=== PATIENT | male | born 1935 | race Two or more races ===

== ENCOUNTER 2024-08-17 11:57 | Inpatient (IN) | payer BC, OTHER ==
[~2024-08-17] VITALS: Ht 160 cm; Wt 83.1 kg
--- NOTE | 2024-08-17 12:27 | ECG ---
[facility] Test Date: 2024-08-17 Test Time: 12:26:14 Pat Name: LAURA DAWSON Department: ED Room: 0250T Gender: M Grid Caster: GP : 1935 Requested By: STORMY KOTHARI Order Number: [id number] Reading MD: Chino Coleman Measurements Intervals [place] Rate: 68 P: 23 MI: 185 QRS: 13 QRSD: 93 T: 13 QT: 368 QTc: 392 Interpretive Statements Sinus rhythm Atrial premature complex Electronically Signed On 08-22-2024 21:54:22 PDT by Chino Coleman Please click the below link to view image of tracing.
--- NOTE | 2024-08-17 13:13 | DVH ---
EXAM: XY CHEST PORTABLE Indication: weakness Technique: Single frontal view of the chest was obtained Comparison: None FINDINGS: Lines and Tubes: None Lungs: No focal consolidation. Pleura: No effusion. No pneumothorax. Cardiomediastinal contours: Unremarkable Bones: No acute osseous abnormality. IMPRESSION: No acute cardiopulmonary disease.
--- NOTE | 2024-08-17 13:29 | ED.PDOC ---
History of Present Illness HPI Comments 88-year-old male who comes in with chief complaint of altered level of consciousness with weakness and dizziness. According to the family, the patient has been having increased weakness over the past few weeks. The patient has also been having some mild dysuria. The patient's daughter lives in [place] and has been calling the phone of the patient but he has not been answering so she flew down to come and see him. She states that he has been having some constipation and seems to be getting much weaker. He states that he has been having a constipation over the past few weeks. He is complaining of some dry mouth but is able to answer questions so and upon arrival. He is having some vomiting. Upon arrival, the patient's blood pressure was 130/82 and he had an Accu-Chek of 91. A 12 lead EKG was within normal range. The patient is now also complaining of some dizziness. 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 The patient is also having some mild altered mental status as well as dysuria Past Medical History PAST MEDICAL HISTORY: Gout, High Lipids, HTN Surgical History: Denies all surgeries Family History Family History: Family hx of heart jody Social History Smoker: Non-Smoker Alcohol: Denies ETOH Use Drugs: Denies Drug Use Lives In: Home Constitutional: reports: weakness; denies: chills, diaphoresis, fatigue, fever, malaise, sweats, others EENTM: denies: blurred vision, double vision, ear bleeding, ear discharge, ear drainage, ear pain, ear ringing, eye pain, eye redness, hearing loss, mouth pain, mouth swelling, nasal discharge, nose bleeding, nose congestion, nose pain, photophobia, tearing, throat pain, throat swelling, voice changes, others Respiratory: denies: cough, hemoptysis, orthopnea, SOB at rest, shortness of breath, SOB with excertion, stridor, wheezing, others Cardiovascular: denies: chest pain, dizzy spells, diaphoresis, Dyspnea on exertion, edema, irregular heart beat, left arm pain, lightheadedness, palpitations, PND, syncope, others Gastrointestinal: reports: constipated, nausea, vomiting; denies: abdomen distended, abdominal pain, blood streaked bowels, diarrhea, dysphagia, difficulty swallowing, hematemesis, melena, poor appetite, poor fluid intake, rectal bleeding, rectal pain, others Genitourinary: reports: dysuria; denies: burning, flank pain, frequency, hematuria, incontinence, penile discharge, penile sore, pain, testicle pain, testicle swelling, urgency, others Neurological: reports: others (Altered mental status); denies: dizziness, fainting, headache, left sided numbness, left sided weakness, numbness, paresthesia, pre-existing deficit, right sided numbness, right sided weakness, seizure, speech problems, tingling, tremors, weakness Musculoskeletal: denies: back pain, gout, joint pain, joint swelling, muscle pain, muscle stiffness, neck pain, others Integumetry: denies: bruises, change in color, change in hair/nails, dryness, laceration, lesions, lumps, rash, wounds, others Allergic/Immunocompromised: denies: Difficulty Healing, Frequent Infections, Hives, Itching, others Hematologic/Lymphatic: denies: anemia, blood clots, easy bleeding, easy bruising, swollen glands, others Endocrine: denies: excessive hunger, excessive sweating, excessive thirst, excessive urination, flushing, intolerance to cold, intolerance to heat, unexplained weight gain, unexplained weight loss, others Psychiatric: denies: anxiety, bipolar disorder, depression, hopeless, panic disorder, schizophrenia, sleepless, suicidal, others Physical Exam General Appearance: Severe Distress HEENT: Normal ENT Inspection, Pharynx Normal, TMs Normal Neck: Full Range of Motion, Non-Tender, Normal, Normal Inspection Respiratory: Chest Non-Tender, Lungs Clear, No Accessory Muscle Use, No Respiratory Distress, Normal Breath Sounds Cardiovascular: No Edema, No JVD, No Murmur, No Gallop, Normal Peripheral Pulses, Regular Rate/Rhythm Breast Exam: Deferred Gastrointestinal: No Organomegaly, Non Tender, No Pulsatile Mass, Normal Bowel Sounds, Soft Genitalia: Deferred Pelvic: Deferred Rectal: Deferred Extremities: No calf tenderness, Normal capillary refill, Normal inspection, Normal range of motion, Non-tender, No pedal edema Musculoskeletal : Apperance: Normal 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 Was a procedure done?: No EKG EKG : Pulse Rate (adult): 65 Perry: Normal Cardiac Rhythm: NSR Block: None ST: Nonsp Differential Dx Considerations may include: Sepsis, UTI, generalized weakness, electrolyte imbalance X-Ray, Labs, Meds, VS Vital Signs Date Time Temp Pulse Resp B/P (MAP) Pulse Ox O2 Delivery O2 Flow Rate FiO2 08/17/24 16:00 72 08/17/24 15:54 75 15 95 Room Air* 0 21 08/17/24 15:03 80 08/17/24 14:00 98.7 62 18 130/27 (61) 98 98.7 08/17/24 13:29 65 08/17/24 12:26 68 08/17/24 12:15 98.0 63 20 134/48 (76) 95 98.0 Lab Test 08/17/24 16:09 08/17/24 14:42 08/17/24 14:15 08/17/24 14:09 Range/Units Sodium Level Pending Potassium Level Pending Chloride Level Pending Carbon Dioxide Level Pending Anion Gap Pending Blood Urea Nitrogen Pending Creatinine Pending Glomerular Filtration Rate Calc Pending BUN/Creatinine Ratio Pending Serum Glucose Pending Calcium Level Pending Troponin I High Sensitivity 41 40 </=54 ng/L Blood Gas Specimen Type Arterial Blood Gas Sample Site Right radial Blood Gas Patient Temperature 37.0 Arterial Blood Date Drawn [id number] Arterial Blood pH 7.073 *L 7.350-7.450 Arterial Blood Partial Pressure CO2 21.2 L 35.0-48.0 mmHg Arterial Blood Partial Pressure O2 66.3 L 83.0-108.0 mmHg Arterial Blood HCO3 6.0 L 21.0-28.0 mmol/L Arterial Blood Oxygen Saturation 90.1 L 94.0-98.0 % Arterial Blood Base Excess -22.3 L -2.0-3.0 mmol/L Arterial Blood Oxyhemoglobin 89.2 L 94.0-98.0 % Arterial Blood Carboxyhemoglobin 0.3 L 0.5-1.5 % Arterial Blood Methemoglobin 0.7 0.0-1.5 % Ghulam Test Yes Blood Gas Total Hemoglobin 9.10 L 13.5-17.5 g/dL Blood Gas Modality Room air FiO2 % 21.0 Blood Gas Critical Value Read Back Yes Blood Gas Notified Whom Dr mtz Blood Gas Notified Time [id number] Blood Gas Notified By POC Glucose 79 70-106 mg/dl Test 08/17/24 13:50 08/17/24 13:15 Range/Units SARS-CoV-2 Antigen (Rapid) Negative NEGATIVE White Blood Count 5.6 4.4-10.8 10^3/uL Red Blood Count 2.77 L 4.5-5.90 10^6/uL Hemoglobin 8.7 L 13.5-17.5 g/dL Hematocrit 26.0 L 41.0-53.0 % Mean Corpuscular Volume 93.8 80.0-100.0 fL Mean Corpuscular Hemoglobin 31.2 28.0-32.0 pg Mean Corpuscular Hemoglobin Concent 33.3 32.0-36.0 g/dL Red Cell Distribution Width 15.2 H 11.8-14.3 % Platelet Count 165 140-450 10^3/uL Mean Platelet Volume 10.0 6.9-10.8 fL Neutrophils (%) (Auto) 82.5 H 37.0-80.0 % Lymphocytes (%) (Auto) 5.8 L 10.0-50.0 % Monocytes (%) (Auto) 8.2 0.0-12.0 % Eosinophils (%) (Auto) 3.0 0.0-7.0 % Basophils (%) (Auto) 0.5 0.0-2.0 % Neutrophils # (Auto) 4.6 1.6-8.6 10 ^3/uL Lymphocytes # (Auto) 0.3 L 0.4-5.4 10 ^3/uL Monocytes # (Auto) 0.5 0-1.3 10 ^3/uL Eosinophils # (Auto) 0.2 0-0.8 10 ^3/uL Basophils # (Auto) 0 0-0.2 10 ^3/uL Nucleated Red Blood Cells 0.0 % Sodium Level 140 136-145 mmol/L Potassium Level 6.0 *H 3.5-5.1 mmol/L Chloride Level 115 H 98-107 mmol/L Carbon Dioxide Level < 10 *L 20-31 mmol/L Anion Gap 15.79273 H 5-15 Blood Urea Nitrogen 123 *H 9-23 mg/dL Creatinine 8.80 H 0.700-1.30 mg/dL Glomerular Filtration Rate Calc 5 >90 mL/min BUN/Creatinine Ratio 14.0 10.0-20.0 Serum Glucose 85 74-106 mg/dL Lactic Acid Level 0.5 0.4-2.0 mmol/L Calcium Level 9.4 8.7-10.4 mg/dL Troponin I High Sensitivity 44 </=54 ng/L Current Medications Medications (Trade) Dose Ordered Sig/Mukesh Route Start Time Stop Time Status Last Admin Sodium Chloride 500 ml @ 500 mls/hr Q1H ONCE IVB 08/17/24 12:15 08/17/24 13:14 DC 08/17/24 15:03 Sodium Chloride 1,000 ml @ 1,000 mls/hr Q1H ONCE IV 08/17/24 14:15 08/17/24 15:18 DC 08/17/24 14:15 Calcium Gluconate/ Sodium Chloride 50 ml @ 100 mls/hr ONCE ONCE IV 08/17/24 14:45 08/17/24 15:18 DC 08/17/24 14:57 Sodium Bicarbonate 50 ml ONCE ONCE IV 08/17/24 14:45 08/17/24 14:46 DC 08/17/24 14:45 Dextrose 25 ml ONCE ONCE IV 08/17/24 14:45 08/17/24 14:46 DC 08/17/24 14:45 Insulin Human Regular (InsuLIN R) 5 units ONCE ONCE IV 08/17/24 14:45 08/17/24 14:46 DC 08/17/24 15:17 IV Hep-Lock was established The patient was given normal saline as a 500 cc bolus initially. The patient's CBC came back with a hemoglobin of 8.7 and hematocrit of 26. The chemistry panel shows a potassium of 6.0 We did go ahead and give the patient calcium chloride as well as sodium bicarbonate, dextrose and insulin. We can not see if the patient had a history of renal failure in the past The patient's BUN is elevated at 123 and the creatinine of 8.8 The CO2 level is less than 10. The patient's anion gap is 15 The troponin level is negative At this time we did go ahead and order an ABG to rule out possible DKA The pH came back at 7.07 At this time, the patient will be admitted to the hospitalist The patient's diagnosis metabolic acidosis We will be starting a bicarbonate drip. The rest of the chemistry panel is pending as we did a repeat chemistry panel The patient's family is at bedside and understands and agrees with the management Blood cultures x2 were also drawn. The lactic acid level was done and is within normal range A nephrology consult has also been obtained. A Sagastume catheter has been ordered and is being placed at this time. Images Reviewed?: Images reviewed and evaluated by me Time of 1ST Reevaluation: 13:29 Reevaluation 1ST: Unchanged Patient Education/Counseling: Diagnosis, Treatment, Prognosis Family Education/Counseling: Diagnosis, Treatment, Prognosis Sepsis Sepsis Reasesment Focused Exam Orders: Laboratory Tests 08/17/24 13:15: Lactic Acid Level 0.5 Departure 1 Departure Time of Disposition: 16:57 Impression: Primary Impression: Metabolic acidosis Additional Impressions: ESRD needing dialysis Hyperkalemia Dehydration Disposition: ADMITTED INPATIENT Admit to: [facility] Condition: Fair Critical Care Note Critical Care Time?: Yes (1 hr-critical care time only) Stability Stability form required: Yes Unstable for transfer: ICU, CCU, PCU, [facility] (Intensive VS monitoring), ED Physician Assesment (Clinical assesment) Heart Score Heart Score: Heart Score Response (Comments) Value History N/A 0 EKG N/A 0 Age N/A 0 Risk Factors N/A 0 Troponin N/A 0 Total 0 STORMY MTZ MD August 17, 2024 13:29
[2024-08-17 13:37] LABS: Basophils # (auto) 0 10 ^3/uL (0-0.2); Basophils % (auto) 0.5 % (0.0-2.0); Eosinophils # (auto) 0.2 10 ^3/uL (0-0.8); Hemoglobin 8.7 g/dL (13.5-17.5); Lymphocytes # (auto) 0.3 10 ^3/uL (0.4-5.4); Lymphocytes % (auto) 5.8 % (10.0-50.0); Mean Corpuscular Hemoglobin 31.2 pg (28.0-32.0); Mean Corpuscular Hgb Conc. 33.3 g/dL (32.0-36.0); Mean Corpuscular Volume 93.8 fL (80.0-100.0); Monocytes # (auto) 0.5 10 ^3/uL (0-1.3); Monocytes % (auto) 8.2 % (0.0-12.0); Neutrophils # (auto) 4.6 10 ^3/uL (1.6-8.6); Neutrophils % (auto) 82.5 % (37.0-80.0); Platelet Count (auto) 165 10^3/uL (140-450); Red Blood Cells 2.77 10^6/uL (4.5-5.90); Red Cell Distribution Width 15.2 % (11.8-14.3); White Blood Cell 5.6 10^3/uL (4.4-10.8)
[2024-08-17 13:42] LABS: Sodium 140 mmol/L (136-145)
[2024-08-17 13:43] LABS: Anion Gap 15.00001 (5-15)
[2024-08-17 13:44] LABS: Calcium 9.4 mg/dL (8.7-10.4)
[2024-08-17 13:48] LABS: Glucose 85 mg/dL (74-106)
[2024-08-17 13:49] LABS: Chloride 115 mmol/L (98-107)
[2024-08-17 13:55] LABS: Blood Urea Nitrogen 123 mg/dL (9-23); Carbon Dioxide < 10 mmol/L (20-31)
[2024-08-17] MEDS: SODIUM CHLORIDE 0.9% 1,000 ML IV ONE (14:15)
[2024-08-17 14:40] LABS: COVID19 ANTIGEN SOFIA FIA NEGATIVE (NEGATIVE)
[2024-08-17] MEDS: DEXTROSE (50%) 50ML SYRG IV ONE (14:45)
[2024-08-17] MEDS: SODIUM BICARB 8.4% 50Meq/50ml SYR Vial IV ONE (14:45)
[2024-08-17] MEDS: CALCIUM GLUC 1,000mg/50ml-NS 50 ML IV ONE (14:57)
[2024-08-17] MEDS: INSULIN LANTUS (GLARGINE) 1 /0.01ml (100units/ml) SC ONE (15:00)
[2024-08-17] MEDS ORDERED: DEXTROSE (50%) 50ML SYRG IV PRN (15:00)
[2024-08-17] MEDS ORDERED: INSULIN DRIP 100 UNIT/100ML 100 ML IV SCH (15:00)
[2024-08-17] MEDS ORDERED: ACCU-CHEK COMFORT CURVE STRIP VI SCH (15:00)
[2024-08-17] MEDS: SODIUM CHLORIDE 0.9% 500 ML IVB ONE (15:03)
[2024-08-17 15:14] LABS: Base Excess -22.3 mmol/L (-2.0-3.0)
[2024-08-17] MEDS: InsuLIN REG 1unit/0.01ml Soln (100units/ml) IV ONE (15:17)
[2024-08-17 15:54] VITALS: PULSE 75; RESP 15; O2SAT 95
--- NOTE | 2024-08-17 16:27 | DVHHP2 ---
History of Present Illness Reason for Visit: Altered mental status. History of Present Illness 58-year-old male with a known history of hypertension, dyslipidemia, history of gout, currently on lovastatin lisinopril and Lasix at home, history of prostate cancer status post radiation currently getting active radiation presented to the hospital with altered mental status. As per daughter at bedside patient lives alone and she lives in [place]. She called him and then he was not making any sense eventually she flew down to see him. Patient was more altered as well as constipated. Eventually in the ER patient was found to have med severe metabolic acidosis secondary to dehydration as well as a acute kidney injury with a hyperkalemia. Number daughter patient's has not been eating or drinking for last week and a half. Patient is not making much urine as per his statement. Sagastume catheter has been ordered. Bicarb drip will be ordered. Cardiovascular: HTN Review of Systems Review of Systems Twelve review of system are negative besides mentioned above. Allergies: Coded Allergies: NO KNOWN ALLERGIES (Unverified , 08/17/24) Medications Current Medications Medications Dose Ordered Sig/Mukehs Route Start Time Stop Time Status Last Admin Dose Admin Insulin Human (Reg)/Sodium Chloride 100 ml @ 0.5 mls/hr Q24H IV 08/17/24 15:00 Diagnostic Test (Pha) 1 strip Q90MIN 08/17/24 15:00 Dextrose 50 ml PRN PRN IV 08/17/24 15:00 Insulin Glargine 15 units DAILY SC 08/18/24 10:00 Exam Vital Signs Vital Signs Date Time Temp Pulse Resp B/P (MAP) Pulse Ox O2 Delivery O2 Flow Rate FiO2 08/17/24 15:54 75 15 95 Room Air* 0 21 08/17/24 14:00 98.7 130/27 (61) 98.7 Exam HEENT pupils are reactive Neck is supple CV is S1-S2 regular rate and rhythm Respiratory diminished breath sounds bases GI positive bowel sound Extremity no edema 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 Labs/Xrays Labs Test 08/17/24 16:09 08/17/24 14:42 08/17/24 14:09 08/17/24 13:50 Range/Units Blood Gas Specimen Type Arterial Blood Gas Sample Site Right radial Blood Gas Patient Temperature 37.0 Arterial Blood Date Drawn [id number] Arterial Blood pH 7.073 *L 7.350-7.450 Arterial Blood Partial Pressure CO2 21.2 L 35.0-48.0 mmHg Arterial Blood Partial Pressure O2 66.3 L 83.0-108.0 mmHg Arterial Blood HCO3 6.0 L 21.0-28.0 mmol/L Arterial Blood Oxygen Saturation 90.1 L 94.0-98.0 % Arterial Blood Base Excess -22.3 L -2.0-3.0 mmol/L Arterial Blood Oxyhemoglobin 89.2 L 94.0-98.0 % Arterial Blood Carboxyhemoglobin 0.3 L 0.5-1.5 % Arterial Blood Methemoglobin 0.7 0.0-1.5 % Ghulam Test Yes Blood Gas Total Hemoglobin 9.10 L 13.5-17.5 g/dL Blood Gas Modality Room air FiO2 % 21.0 Blood Gas Critical Value Read Back Yes Blood Gas Notified Whom Dr mtz Blood Gas Notified Time [id number] Blood Gas Notified By POC Glucose 79 70-106 mg/dl SARS-CoV-2 Antigen (Rapid) Negative NEGATIVE Test 08/17/24 13:15 Range/Units White Blood Count 5.6 4.4-10.8 10^3/uL Red Blood Count 2.77 L 4.5-5.90 10^6/uL Hemoglobin 8.7 L 13.5-17.5 g/dL Hematocrit 26.0 L 41.0-53.0 % Mean Corpuscular Volume 93.8 80.0-100.0 fL Mean Corpuscular Hemoglobin 31.2 28.0-32.0 pg Mean Corpuscular Hemoglobin Concent 33.3 32.0-36.0 g/dL Red Cell Distribution Width 15.2 H 11.8-14.3 % Platelet Count 165 140-450 10^3/uL Mean Platelet Volume 10.0 6.9-10.8 fL Neutrophils (%) (Auto) 82.5 H 37.0-80.0 % Lymphocytes (%) (Auto) 5.8 L 10.0-50.0 % Monocytes (%) (Auto) 8.2 0.0-12.0 % Eosinophils (%) (Auto) 3.0 0.0-7.0 % Basophils (%) (Auto) 0.5 0.0-2.0 % Neutrophils # (Auto) 4.6 1.6-8.6 10 ^3/uL Lymphocytes # (Auto) 0.3 L 0.4-5.4 10 ^3/uL Monocytes # (Auto) 0.5 0-1.3 10 ^3/uL Eosinophils # (Auto) 0.2 0-0.8 10 ^3/uL Basophils # (Auto) 0 0-0.2 10 ^3/uL Nucleated Red Blood Cells 0.0 % Lactic Acid Level 0.5 0.4-2.0 mmol/L Assessment/Plan Assessment/Plan 88-year-old male with a known history of hypertension, gout, dyslipidemia , history of prostate cancer status post radiation, presented to the hospital with unable to eat, nausea and vomiting and constipation found to have 1. Acute metabolic encephalopathy 2. Severe metabolic acidosis secondary to dehydration 3. Acute kidney injury 4. Hyperkalemia 5. Hypertension 6. Dyslipidemia 8. History of prostate cancer status post radiation 9. Gout -hyperkalemia cocktail treatment, repeat BMP in 1 hour. -admit to [facility], bicarb drip, check UA urine culture, renal ultrasound, -place Sagastume catheter for strict intake and output , nephrology consultation, Plan discussed with: Patient, Daughter My Orders Orders - MADAN ANDERSON MD Procedure Category Date Status Time Basic Metabolic Panel LAB 08/17/24 In Process 15:42 Admit ADMIT 08/17/24 Transmitted 16:18 Code Status CODE 08/17/24 Transmitted 16:18 2 Gm Sodium Diet DIET 08/17/24 Transmitted Dinner Hydrocodone-Acet PHA 08/17/24 Transmitted 5/325mg Tab ([place] 16:30 Ondansetron Hcl PHA 08/17/24 Transmitted (Zofran) 16:30 Complete Blood Count LAB 08/18/24 Verified 04:00 Comprehensive LAB 08/18/24 Verified Metabolic Panel 04:00 Pt Request For Service PT 08/17/24 Transmitted 16:18 Condition: Critical [facility]O 08/17/24 Transmitted 16:18 Acetaminophen Tablet PHA 08/17/24 Transmitted (Tylenol Tablet) 16:30 Morphine Sulfate PHA 08/17/24 Transmitted Injection 16:30 Nitroglycerin PHA 08/17/24 Transmitted Sublingual (Ntrostat 16:30 Morphine Sulfate PHA 08/17/24 Transmitted Injection 16:30 Stat Ekg For Chest [facility]O 08/17/24 Transmitted Pain 16:18 Notify Of Changes [facility] 08/17/24 Transmitted From Base 16:18 Escalator Installer For [facility] 08/17/24 Transmitted 24 Hours 16:18 Emergency Dysrhythmia [facility] 08/17/24 Transmitted Protocol 16:18 Rhythm Strips Once [facility] 08/17/24 Transmitted Every Shift 16:18 Oxygen By Nasal RT 08/17/24 Transmitted Cannula 16:18 D5 W Sodium PH[facility] 08/17/24 Transmitted Bicarbonate Drip 16:30 Albuterol Medneb PHA 08/17/24 Transmitted (Ventolin Medneb) 16:30 Kidney US 08/17/24 Transmitted 16:18 Insert Sagastume Catheter [facility] 08/17/24 Transmitted 16:18 *[facility] CONS 08/17/24 Transmitted -[place] 16:18 Date of Service: August 17, 2024 Billing Provider: MADNA ANDERSON MD Common Visit Codes: NOT BILLABLE MADAN ANDERSON MD August 17, 2024 16:26
[2024-08-17] MEDS ORDERED: NITROGLYCERIN 0.4 MG SL TAB SL PRN (16:30)
[2024-08-17] MEDS ORDERED: MORPHINE SULFATE INJ 2 MG/ml SYRG IV PRN ×2 (16:30)
[2024-08-17 16:46] LABS: Potassium 5.1 mmol/L (3.5-5.1); Sodium 143 mmol/L (136-145)
[2024-08-17 16:47] LABS: Anion Gap 16.00001 (5-15); Calcium 8.9 mg/dL (8.7-10.4)
[2024-08-17 16:52] LABS: BUN/Creatinine Ratio 15.3 (10.0-20.0)
[2024-08-17 16:56] LABS: Chloride 117 mmol/L (98-107)
[2024-08-17 16:57] LABS: Glucose 125 mg/dL (74-106)
[2024-08-17 16:58] LABS: Blood Urea Nitrogen 128 mg/dL (9-23); Carbon Dioxide < 10 mmol/L (20-31)
[2024-08-17] MEDS: ALBUTEROL SULF 2.5 MG/0.5ML(0.5%) NEB SOLN NEB ONE (16:59)
--- NOTE | 2024-08-17 17:08 | DVH ---
EXAM: US KIDNEY HISTORY: Acute kidney injury COMPARISON: None TECHNIQUE: Ultrasound evaluation of the kidneys was performed. FINDINGS: The right kidney measures 0.2 cm. The left kidney measures 9.7 cm. No hydronephrosis, solid renal masses, cortical thinning, or abnormal cortical echogenicity bilaterally. Prevoid bladder volume 210 mL. Bladder wall thickness 1.6 mm. Patient unable to void IMPRESSION: 1. Right kidney measures 9.2 cm. Left kidney measures 9.7 cm. 2. Bladder contains 210 mL of urine and patient has no urge to void at this time.
[2024-08-17] MEDS: SODIUM BICARB 50mEq/50ml Vial 75 ML in D5W 5% 1,000 ML IV SCH (17:13)
[2024-08-17 19:16] LABS: Potassium 4.4 mmol/L (3.5-5.1); Sodium 143 mmol/L (136-145)
[2024-08-17 19:17] LABS: Anion Gap 17.00001 (5-15)
[2024-08-17 19:30] VITALS: PULSE 92; RESP 16; O2SAT 96
[2024-08-17 19:37] LABS: BUN/Creatinine Ratio 14.5 (10.0-20.0); Calcium 8.6 mg/dL (8.7-10.4); Chloride 116 mmol/L (98-107); Glucose 135 mg/dL (74-106)
[2024-08-17 19:39] LABS: Blood Urea Nitrogen 127 mg/dL (9-23)
[2024-08-17 19:40] LABS: Carbon Dioxide < 10 mmol/L (20-31)
[2024-08-17 21:42] LABS: Urine Bacteria FEW /hpf (None Seen); Urine Blood 3+ /uL (Negative); Urine Budding Yeast OCCASIONAL /hpf (None Seen); Urine Clarity Clear (Clear); Urine Color Light-Yellow (Yellow); Urine Protein, UAD 2+ (Negative); Urine Specific Gravity 1.012 (1.001-1.035); Urine Squamous Epithelial Cell None Seen /hpf (<5); Urine Urobilinogen Normal (Negative); Urine WBC 16 /HPF (0-3); Urine pH 5.5 (5.0-9.0)
[2024-08-17 21:45] LABS: Creatinine, Urine 131.55 mg/dL (30.0-125.0)
[2024-08-18] MEDS: hydrALAZINE HCL 20 MG/ML VL IV PRN (05:30)
[2024-08-18 06:11] LABS: Basophils # (auto) 0 10 ^3/uL (0-0.2); Eosinophils # (auto) 0.1 10 ^3/uL (0-0.8); Hemoglobin 7.3 g/dL (13.5-17.5); Lymphocytes # (auto) 0.2 10 ^3/uL (0.4-5.4); Lymphocytes % (auto) 3.7 % (10.0-50.0); Monocytes # (auto) 0.5 10 ^3/uL (0-1.3); Platelet Count (auto) 127 10^3/uL (140-450); Red Blood Cells 2.33 10^6/uL (4.5-5.90)
[2024-08-18 06:15] LABS: Basophils % (auto) 0.4 % (0.0-2.0); Eosinophils % (auto) 1.8 % (0.0-7.0); Hematocrit 21.2 % (41.0-53.0); Mean Corpuscular Hemoglobin 31.4 pg (28.0-32.0); Mean Corpuscular Hgb Conc. 34.4 g/dL (32.0-36.0); Mean Corpuscular Volume 91.1 fL (80.0-100.0); Monocytes % (auto) 9.4 % (0.0-12.0); Neutrophils # (auto) 4.7 10 ^3/uL (1.6-8.6); Neutrophils % (auto) 84.7 % (37.0-80.0); Red Cell Distribution Width 14.8 % (11.8-14.3); White Blood Cell 5.5 10^3/uL (4.4-10.8)
[2024-08-18] MEDS: SODIUM BICARB 8.4% 50Meq/50ml SYR Vial IV ONE (06:22)
[2024-08-18 06:33] LABS: Alkaline Phosphatase 67 U/L (46-116); Anion Gap 16 (5-15); BUN/Creatinine Ratio 14.5 (10.0-20.0); Potassium 4.1 mmol/L (3.5-5.1); Sodium 143 mmol/L (136-145); Total Protein 5.8 g/dL (5.7-8.2)
[2024-08-18 06:34] LABS: Albumin 3.7 g/dL (3.2-4.8); Carbon Dioxide 12 mmol/L (20-31); Chloride 115 mmol/L (98-107); Glucose 132 mg/dL (74-106)
[2024-08-18 06:35] LABS: Alanine Aminotransferase < 9 U/L (7-40); Aspartate Aminotransferase < 8 U/L (13-40); Calcium 8.4 mg/dL (8.7-10.4); Creatine Kinase IFCC 220 U/L (46-171)
[2024-08-18 06:36] LABS: Bilirubin, Total 0.3 mg/dL (0.2-1.0); Blood Urea Nitrogen 116 mg/dL (9-23)
[2024-08-18 08:00] VITALS: PULSE 95; RESP 16; O2SAT 95
--- NOTE | 2024-08-18 09:37 | DVHINCON2 ---
Date of service: August 18, 2024 Reason for Consultation TONIA History of Present Illness 88 year old male presented with AMS. He has recent diagnosis of prostate cancer on therapy. Was brought to the hospital by family due to change in mental state. In the ER is noted to have abnormal labs including severe metabolic acidosis. Per ER unable to obtain Sagastume catheter placement and Urology was consulted. Nephrology is consulted due to acute kidney injury Past Medical History Diabetes and hypertension Allergies: Coded Allergies: NO KNOWN ALLERGIES (Unverified , 08/17/24) Current Medications Current Medications Medications (Trade) Dose Ordered Sig/Mukesh Route PRN Reason Start Time Stop Time Status Last Admin Insulin Human (Reg)/Sodium Chloride 100 ml @ 0.5 mls/hr Q24H IV 08/17/24 15:00 08/17/24 17:56 DC Diagnostic Test (Pha) (Accu-Chek Comfort Curve T) 1 strip Q90MIN 08/17/24 15:00 08/17/24 17:56 DC Dextrose 50 ml PRN PRN IV BG LESS Than 70 AND CALL MD 08/17/24 15:00 08/17/24 17:56 DC Insulin Glargine (Lantus) 15 units DAILY SC 08/18/24 10:00 08/17/24 17:56 DC Acetaminophen/ Hydrocodone Bitart ([place] 5/325MG Tab) 1 tab Q4HP PRN PO MODERATE PAIN (4-6 PAIN SCALE) 08/17/24 16:30 Ondansetron HCl (Zofran) 4 mg Q4HP PRN IV NAUSEA / VOMITING 08/17/24 16:30 Acetaminophen (Tylenol Tablet) 650 mg Q6HP PRN PO PAIN SCALE 1-3 OR TEMP>100.4 08/17/24 16:30 Morphine Sulfate 2 mg Q4HPRN PRN IV SEVERE PAIN (7-10 PAIN SCALE) 08/17/24 16:30 Nitroglycerin (Ntrostat Sublingual) 0.4 mg Q5MINP PRN SL FOR CHEST PAIN 08/17/24 16:30 Morphine Sulfate 2 mg Q30M PRN IV FOR CHEST PAIN 08/17/24 16:30 Sodium Bicarbonate 75 ml/ Dextrose 1,075 ml @ 100 mls/hr [id number] IV 08/17/24 16:30 08/17/24 17:13 Hydralazine HCl (Apresoline Injection) 10 mg Q6HP PRN IV SBP>160 08/18/24 04:15 08/18/24 05:30 Review of Systems Change in mental state H&P Exam Vital Signs/I&O Vital Sign Date Time Temp Pulse Resp B/P (MAP) Pulse Ox O2 Delivery O2 Flow Rate FiO2 08/18/24 08:05 75 08/18/24 08:00 97.9 16 157/57 (90) 95 97.9 08/18/24 08:00 Nasal Cannula* 2 28 Intake and Output 0 08/17/24 08/18/24 19:00 07:00 Intake Total 100 ml 2750 ml Output Total 325 ml Balance 100 ml 2425 ml Intake IV Total 100 ml 2750 ml Output Urine Total 325 ml Physical Exam Elderly male Not in respiratory distress Mildly confused Abdomen is soft No pitting edema Regular rate and rhythm Labs/Diagnostic Data Labs/Diagnostic Data Laboratory Tests Test 08/18/24 05:41 08/17/24 21:15 08/17/24 18:55 08/17/24 16:28 Range/Units White Blood Count 5.5 4.4-10.8 10^3/uL Red Blood Count 2.33 L 4.5-5.90 10^6/uL Hemoglobin 7.3 #L 13.5-17.5 g/dL Hematocrit 21.2 #L 41.0-53.0 % Mean Corpuscular Volume 91.1 80.0-100.0 fL Mean Corpuscular Hemoglobin 31.4 28.0-32.0 pg Mean Corpuscular Hemoglobin Concent 34.4 32.0-36.0 g/dL Red Cell Distribution Width 14.8 H 11.8-14.3 % Platelet Count 127 L 140-450 10^3/uL Mean Platelet Volume 10.4 6.9-10.8 fL Neutrophils (%) (Auto) 84.7 H 37.0-80.0 % Lymphocytes (%) (Auto) 3.7 L 10.0-50.0 % Monocytes (%) (Auto) 9.4 0.0-12.0 % Eosinophils (%) (Auto) 1.8 0.0-7.0 % Basophils (%) (Auto) 0.4 0.0-2.0 % Neutrophils # (Auto) 4.7 1.6-8.6 10 ^3/uL Lymphocytes # (Auto) 0.2 L 0.4-5.4 10 ^3/uL Monocytes # (Auto) 0.5 0-1.3 10 ^3/uL Eosinophils # (Auto) 0.1 0-0.8 10 ^3/uL Basophils # (Auto) 0 0-0.2 10 ^3/uL Nucleated Red Blood Cells 0.0 % Sodium Level 143 143 136-145 mmol/L Potassium Level 4.1 4.4 3.5-5.1 mmol/L Chloride Level 115 H 116 H 98-107 mmol/L Carbon Dioxide Level 12 L < 10 *L 20-31 mmol/L Anion Gap 16 H 17.89841 H 5-15 Blood Urea Nitrogen 116 #*H 127 *H 9-23 mg/dL Creatinine 7.99 H 8.74 H 0.700-1.30 mg/dL Glomerular Filtration Rate Calc 6 5 >90 mL/min BUN/Creatinine Ratio 14.5 14.5 10.0-20.0 Serum Glucose 132 H 135 H 74-106 mg/dL Calcium Level 8.4 L 8.6 L 8.7-10.4 mg/dL Phosphorus Level 6.0 H 2.4-5.1 mg/dL Total Bilirubin 0.3 0.2-1.0 mg/dL Aspartate Amino Transferase (AST) < 8 L 13-40 U/L Alanine Aminotransferase (ALT) < 9 7-40 U/L Alkaline Phosphatase 67 46-116 U/L Creatine Kinase 220 H 46-171 U/L Total Protein 5.8 5.7-8.2 g/dL Albumin 3.7 3.2-4.8 g/dL Urine Color Light-yellow Yellow Urine Clarity Clear Clear Urine pH 5.5 5.0-9.0 Urine Specific [place] 1.012 1.001-1.035 Urine Protein 2+ H Negative Urine Ketones Negative Negative Urine Blood 3+ H Negative /uL Urine Nitrite Negative Negative Urine Bilirubin Negative Negative Urine Urobilinogen Normal Negative mg/dL Urine Leukocyte Esterase Trace Negative /uL Urine RBC 167 0 - 3 /hpf Urine Microscopic WBC 16 H 0-3 /HPF Urine Squamous Epithelial Cells None seen <5 /hpf Urine Bacteria Few H None Seen /hpf Urine Yeast (Budding) Occasional None Seen /hpf Urine Creatinine 131.55 H 30.0-125.0 mg/dL Urine Sodium 34 L 40-220 mmol/L Urine Glucose Normal Normal mg/dL POC Glucose 98 70-106 mg/dl Test 08/17/24 16:09 08/17/24 14:42 08/17/24 14:15 08/17/24 14:09 Range/Units Sodium Level 143 136-145 mmol/L Potassium Level 5.1 3.5-5.1 mmol/L Chloride Level 117 H 98-107 mmol/L Carbon Dioxide Level < 10 *L 20-31 mmol/L Anion Gap 16.32332 H 5-15 Blood Urea Nitrogen 128 *H 9-23 mg/dL Creatinine 8.37 H 0.700-1.30 mg/dL Glomerular Filtration Rate Calc 6 >90 mL/min BUN/Creatinine Ratio 15.3 10.0-20.0 Serum Glucose 125 H 74-106 mg/dL Calcium Level 8.9 8.7-10.4 mg/dL Troponin I High Sensitivity 41 40 </=54 ng/L Blood Gas Specimen Type Arterial Blood Gas Sample Site Right radial Blood Gas Patient Temperature 37.0 Arterial Blood Date Drawn [id number] Arterial Blood pH 7.073 *L 7.350-7.450 Arterial Blood Partial Pressure CO2 21.2 L 35.0-48.0 mmHg Arterial Blood Partial Pressure O2 66.3 L 83.0-108.0 mmHg Arterial Blood HCO3 6.0 L 21.0-28.0 mmol/L Arterial Blood Oxygen Saturation 90.1 L 94.0-98.0 % Arterial Blood Base Excess -22.3 L -2.0-3.0 mmol/L Arterial Blood Oxyhemoglobin 89.2 L 94.0-98.0 % Arterial Blood Carboxyhemoglobin 0.3 L 0.5-1.5 % Arterial Blood Methemoglobin 0.7 0.0-1.5 % Ghulam Test Yes Blood Gas Total Hemoglobin 9.10 L 13.5-17.5 g/dL Blood Gas Modality Room air FiO2 % 21.0 Blood Gas Critical Value Read Back Yes Blood Gas Notified Whom Dr mtz Blood Gas Notified Time [id number] Blood Gas Notified By POC Glucose 79 70-106 mg/dl Test 08/17/24 13:50 08/17/24 13:15 Range/Units SARS-CoV-2 Antigen (Rapid) Negative NEGATIVE White Blood Count 5.6 4.4-10.8 10^3/uL Red Blood Count 2.77 L 4.5-5.90 10^6/uL Hemoglobin 8.7 L 13.5-17.5 g/dL Hematocrit 26.0 L 41.0-53.0 % Mean Corpuscular Volume 93.8 80.0-100.0 fL Mean Corpuscular Hemoglobin 31.2 28.0-32.0 pg Mean Corpuscular Hemoglobin Concent 33.3 32.0-36.0 g/dL Red Cell Distribution Width 15.2 H 11.8-14.3 % Platelet Count 165 140-450 10^3/uL Mean Platelet Volume 10.0 6.9-10.8 fL Neutrophils (%) (Auto) 82.5 H 37.0-80.0 % Lymphocytes (%) (Auto) 5.8 L 10.0-50.0 % Monocytes (%) (Auto) 8.2 0.0-12.0 % Eosinophils (%) (Auto) 3.0 0.0-7.0 % Basophils (%) (Auto) 0.5 0.0-2.0 % Neutrophils # (Auto) 4.6 1.6-8.6 10 ^3/uL Lymphocytes # (Auto) 0.3 L 0.4-5.4 10 ^3/uL Monocytes # (Auto) 0.5 0-1.3 10 ^3/uL Eosinophils # (Auto) 0.2 0-0.8 10 ^3/uL Basophils # (Auto) 0 0-0.2 10 ^3/uL Nucleated Red Blood Cells 0.0 % Sodium Level 140 136-145 mmol/L Potassium Level 6.0 *H 3.5-5.1 mmol/L Chloride Level 115 H 98-107 mmol/L Carbon Dioxide Level < 10 *L 20-31 mmol/L Anion Gap 15.73579 H 5-15 Blood Urea Nitrogen 123 *H 9-23 mg/dL Creatinine 8.80 H 0.700-1.30 mg/dL Glomerular Filtration Rate Calc 5 >90 mL/min BUN/Creatinine Ratio 14.0 10.0-20.0 Serum Glucose 85 74-106 mg/dL Lactic Acid Level 0.5 0.4-2.0 mmol/L Calcium Level 9.4 8.7-10.4 mg/dL Troponin I High Sensitivity 44 </=54 ng/L Assessment Acute kidney injury likely prerenal in the setting of volume depletion Renal function is unknown to me Prostate cancer on therapy Metabolic acidosis Anemia Hyperphosphatemia Continue with sodium bicarbonate drip Urology to place Sagastume catheter Strict Is&Os No emergent indication for hemodialysis at this time we will monitor fluid balance and electrolytes closely. Plan discussed with: Patient BRETT SLADE MD August 18, 2024 09:37
[2024-08-18] MEDS ORDERED: INSULIN LANTUS (GLARGINE) 1 /0.01ml (100units/ml) SC SCH (10:00)
[2024-08-18] MEDS: LIDOCAINE 2% JELLY 11ml (GLYDO) UR ONE (13:23)
[2024-08-18] MEDS: cefTRIAXone 1GM/50ML D5W 50 ML IV SCH (13:38)
[2024-08-18] MEDS ORDERED: MORPHINE SULFATE 4 MG/ML SYR/VIAL IV PRN (13:45)
[2024-08-18] MEDS ORDERED: HYDROmorphone HCL 2 MG/ML VL/or syr IV PRN ×2 (13:45)
[2024-08-18] MEDS: ONDANSETRON HCL 4 MG/2 ML VIAL IV ONE (13:45)
[2024-08-18] MEDS ORDERED: ONDANSETRON HCL 4 MG/2 ML VIAL ONE (13:50)
[2024-08-18] MEDS ORDERED: MIDAZOLAM HCL 2MG/2ML 2ml VIAL (1mg/ml) ONE (13:50)
[2024-08-18] MEDS ORDERED: SODIUM CHLORIDE LOCK 10 ML ONE (13:50)
[2024-08-18] MEDS ORDERED: PROPOFOL 10 MG/ML 20 ML IV ONE (13:50)
[2024-08-18] MEDS ORDERED: KETAMINE 50mg/ML 1ml syringe ONE (13:50)
[2024-08-18] MEDS ORDERED: LIDOCAINE 1% INJ PF 5ML AMP ONE (13:50)
[2024-08-18] MEDS ORDERED: fentaNYL CITRATE 100 MCG/2 ML VL ONE (13:50)
[2024-08-18 14:00] LABS: Base Excess -13.9 mmol/L (-2.0-3.0)
[2024-08-18] MEDS ORDERED: MORPHINE SULFATE INJ 2 MG/ml SYRG IV PRN (14:30)
--- NOTE | 2024-08-18 14:56 | DVHPN2 ---
Subjective Overnight events noted. Patient probably have urethral stricture as Sagastume catheter was tried but it was traumatic. Patient is currently scheduled for cystoscopy by Urology for Sagastume catheter placement. Changes from previous H/P or p: No Changes Objective Vitals Vital Signs Date Time Temp Pulse Resp B/P (MAP) Pulse Ox O2 Delivery O2 Flow Rate FiO2 08/18/24 14:00 59 11 164/60 (94) 94 08/18/24 08:00 97.9 97.9 08/18/24 08:00 Nasal Cannula* 2 28 Intake/Output Intake and Output 08/18/24 07:00 Intake Total 2850 ml Output Total 325 ml Balance 2525 ml Intake IV Total 2850 ml Output Urine Total 325 ml Exam HEENT pupils are reactive Neck is supple CV is S1-S2 regular rate and rhythm Respiratory diminished breath sounds bases GI positive bowel sound Extremity no edema [employer] no motor deficit Medications Current Medications Medications Dose Ordered Sig/Mukesh Route Start Time Stop Time Status Last Admin Dose Admin Acetaminophen/ Hydrocodone Bitart 1 tab Q4HP PRN PO 08/17/24 16:30 Ondansetron HCl 4 mg Q4HP PRN IV 08/17/24 16:30 Acetaminophen 650 mg Q6HP PRN PO 08/17/24 16:30 Morphine Sulfate 2 mg Q4HPRN PRN IV 08/17/24 16:30 Nitroglycerin 0.4 mg Q5MINP PRN SL 08/17/24 16:30 Morphine Sulfate 2 mg Q30M PRN IV 08/17/24 16:30 Sodium Bicarbonate 75 ml/ Dextrose 1,075 ml @ 100 mls/hr [id number] IV 08/17/24 16:30 08/17/24 17:13 100 MLS/HR Hydralazine HCl 10 mg Q6HP PRN IV 08/18/24 04:15 08/18/24 05:30 10 MG Ceftriaxone Sodium 50 ml @ 100 mls/hr DAILY@09 IV 08/18/24 12:45 08/18/24 13:38 100 MLS/HR Morphine Sulfate 2 mg Q4H PRN IV 08/18/24 13:45 08/18/24 17:46 Morphine Sulfate 1 mg Q30M PRN IV 08/18/24 14:30 08/18/24 16:31 Laboratory Results Laboratory Tests 08/18/24 05:41 Chemistry Test 08/17/24 16:09 08/17/24 18:55 08/18/24 05:41 Calcium Level 8.9 mg/dL (8.7-10.4) 8.6 mg/dL (8.7-10.4) L 8.4 mg/dL (8.7-10.4) L Albumin 3.7 g/dL (3.2-4.8) Phosphorus Level 6.0 mg/dL (2.4-5.1) H Total Protein 5.8 g/dL (5.7-8.2) LFT Test 08/18/24 05:41 Alanine Aminotransferase (ALT) < 9 U/L (7-40) Alkaline Phosphatase 67 U/L (46-116) Aspartate Amino Transferase (AST) < 8 U/L (13-40) L Total Bilirubin 0.3 mg/dL (0.2-1.0) Urinalysis Test 08/17/24 21:15 Urine Color Light-yellow (Yellow) Urine Clarity Clear (Clear) Urine pH 5.5 (5.0-9.0) Urine Specific [place] 1.012 (1.001-1.035) Urine Protein 2+ (Negative) H Urine Ketones Negative (Negative) Urine Blood 3+ /uL (Negative) H Urine Nitrite Negative (Negative) Urine Bilirubin Negative (Negative) Urine Urobilinogen Normal mg/dL (Negative) Urine Leukocyte Esterase Trace /uL (Negative) Urine RBC 167 /hpf (0 - 3) Urine Microscopic WBC 16 /HPF (0-3) H Urine Squamous Epithelial Cells None seen /hpf (<5) Urine Bacteria Few /hpf (None Seen) H Urine Yeast (Budding) Occasional /hpf (None Urine Creatinine 131.55 mg/dL (30.0-125.0) H Urine Sodium 34 mmol/L (40-220) L Urine Glucose Normal mg/dL (Normal) Blood Gas Results Test 08/18/24 13:55 Arterial Blood pH 7.281 (7.350-7.450) FiO2 % 21.0 Microbiology Microbiology Date/Time Source Procedure Growth Status 08/17/24 21:15 Voided Urine Urine Culture - Preliminary Resulted 08/17/24 13:15 Blood Blood Culture - Preliminary NO GROWTH AFTER 24 HOURS OF INCUBATION. Resulted Assessment/Plan Assessment/Plan 88-year-old male with a known history of hypertension, gout, dyslipidemia , history of prostate cancer status post radiation, presented to the hospital with unable to eat, nausea and vomiting and constipation found to have 1. Acute metabolic encephalopathy, currently improving 2. Severe metabolic acidosis secondary to dehydration 3. Acute kidney injury suspected secondary to vasomotor nephropathy 4. Hyperkalemia, improved 5. Hypertension 6. Dyslipidemia 8. History of prostate cancer status post radiation 9. Traumatic hematuria suspected urethral stricture -cystoscopy with a Sagastume catheter placement - SHAHANA, bicarb drip, check UA urine culture, renal ultrasound, -urology consultation for cystoscopy and Sagastume catheter placement. Plan discussed with: Patient My Orders Orders - MADAN ANDERSON MD Procedure Category Date Status Time Admit ADMIT 08/17/24 Transmitted 16:18 Code Status CODE 08/17/24 Transmitted 16:18 2 Gm Sodium Diet DIET 08/17/24 Transmitted Dinner Hydrocodone-Acet PHA 08/17/24 In Process 325mg Tab ([place] 16:30 Ondansetron Hcl PHA 08/17/24 In Process (Zofran) 16:30 Pt Request For Service PT 08/17/24 Logged 16:18 Condition: Critical BRANDO 08/17/24 In Process 16:18 Acetaminophen Tablet PHA 08/17/24 In Process (Tylenol Tablet) 16:30 Morphine Sulfate PHA 08/17/24 In Process Injection 16:30 Nitroglycerin PHA 08/17/24 In Process Sublingual (Ntrostat 16:30 Morphine Sulfate PHA 08/17/24 In Process Injection 16:30 Stat Ekg For Chest BRANDO 08/17/24 In Process Pain 16:18 Notify Of Changes BRANDO 08/17/24 In Process From Base 16:18 Extruding Press Operator For BRANDO 08/17/24 In Process 24 Hours 16:18 Emergency Dysrhythmia BRANDO 08/17/24 In Process Protocol 16:18 Rhythm Strips Once BRANDO 08/17/24 In Process Every Shift 16:18 Oxygen By Nasal RT 08/17/24 Transmitted Cannula 16:18 D5w 5% (Dextrose 5%) PHA 08/17/24 In Process W/Sodium Bicarb 50m 16:30 Kidney US 08/17/24 Resulted 16:18 Insert Sagastume Catheter BRANDO 08/17/24 In Process 16:18 *[facility] CONS 08/17/24 Transmitted -[place] 16:18 Urine Bacterial JANET 08/17/24 In Process Culture 16:32 * Urology Consult CONS 08/17/24 Transmitted 17:49 Transfer Orders XFER 08/18/24 Transmitted 13:38 Abg W/ Co-Ox RT 08/18/24 Logged 13:46 Date of Service: August 18, 2024 Billing Provider: MADAN ANDERSON MD Common Visit Codes: NOT BILLABLE MADAN ANDERSON MD August 18, 2024 14:56
--- NOTE | 2024-08-18 15:39 | DVHINCON2 ---
Date of service: August 18, 2024 Referring Physician ER/Hospitalist Reason for Consultation Unable to place Sagastume catheter Gross hematuria after catheterization attempts History of Present Illness Patient with prostate cancer undergoing Radiation therapy. Admitted to [facility] for metabolic derrangement. Unable to place Sagastume catheter. 58-year-old male with a known history of hypertension, dyslipidemia, history of gout, currently on lovastatin lisinopril and Lasix at home, history of prostate cancer status post radiation currently getting active radiation presented to the hospital with altered mental status. As per daughter at bedside patient lives alone and she lives in [place]. She called him and then he was not making any sense eventually she flew down to see him. Patient was more altered as well as constipated. Eventually in the ER patient was found to have med severe metabolic acidosis secondary to dehydration as well as a acute kidney injury with a hyperkalemia. Number daughter patient's has not been eating or drinking for last week and a half. Patient is not making much urine as per his statement. Sagastume catheter has been ordered. Bicarb drip will be ordered. Cardiovascular: HTN Allergies: Coded Allergies: NO KNOWN ALLERGIES (Unverified , 08/17/24) Current Medications Current Medications Medications (Trade) Dose Ordered Sig/Mukesh Route PRN Reason Start Time Stop Time Status Last Admin Insulin Glargine (Lantus) 15 units DAILY SC 08/18/24 10:00 08/17/24 17:56 DC Acetaminophen/ Hydrocodone Bitart ([place] 5/325MG Tab) 1 tab Q4HP PRN PO MODERATE PAIN (4-6 PAIN SCALE) 08/17/24 16:30 Ondansetron HCl (Zofran) 4 mg Q4HP PRN IV NAUSEA / VOMITING 08/17/24 16:30 Acetaminophen (Tylenol Tablet) 650 mg Q6HP PRN PO PAIN SCALE 1-3 OR TEMP>100.4 08/17/24 16:30 Morphine Sulfate 2 mg Q4HPRN PRN IV SEVERE PAIN (7-10 PAIN SCALE) 08/17/24 16:30 Nitroglycerin (Ntrostat Sublingual) 0.4 mg Q5MINP PRN SL FOR CHEST PAIN 08/17/24 16:30 Morphine Sulfate 2 mg Q30M PRN IV FOR CHEST PAIN 08/17/24 16:30 Sodium Bicarbonate 75 ml/ Dextrose 1,075 ml @ 100 mls/hr [id number] IV 08/17/24 16:30 08/17/24 17:13 Hydralazine HCl (Apresoline Injection) 10 mg Q6HP PRN IV SBP>160 08/18/24 04:15 08/18/24 05:30 Ceftriaxone Sodium 50 ml @ 100 mls/hr DAILY@09 IV 08/18/24 12:45 08/18/24 13:38 Hydromorphone HCl (Dilaudid Injection) 0.5 mg Q10M PRN IV SEVERE PAIN (7-10 PAIN SCALE) 08/18/24 13:45 08/18/24 14:26 DC Morphine Sulfate 2 mg Q4H PRN IV BREAKTHRU PAIN SCALE 7-10 08/18/24 13:45 08/18/24 17:46 Hydromorphone HCl (Dilaudid Injection) 0.25 mg Q10M PRN IV MODERATE PAIN (4-6 PAIN SCALE) 08/18/24 13:45 08/18/24 14:16 DC Morphine Sulfate 1 mg Q30M PRN IV SEVERE PAIN (7-10 PAIN SCALE) 08/18/24 14:30 08/18/24 16:31 Vital Signs Vital Signs Date Time Temp Pulse Resp B/P (MAP) Pulse Ox O2 Delivery O2 Flow Rate FiO2 08/18/24 14:00 59 11 164/60 (94) 94 08/18/24 08:00 97.9 97.9 08/18/24 08:00 Nasal Cannula* 2 28 Labs/Diagnostic Data Labs Test 08/18/24 13:55 08/18/24 05:41 08/17/24 21:15 08/17/24 16:28 Range/Units Blood Gas Specimen Type Arterial Blood Gas Sample Site Right radial Blood Gas Patient Temperature 37.0 Arterial Blood Date Drawn [id number] Arterial Blood pH 7.281 L 7.350-7.450 Arterial Blood Partial Pressure CO2 24.9 L 35.0-48.0 mmHg Arterial Blood Partial Pressure O2 90.5 83.0-108.0 mmHg Arterial Blood HCO3 11.5 L 21.0-28.0 mmol/L Arterial Blood Oxygen Saturation 95.8 94.0-98.0 % Arterial Blood Base Excess -13.9 L -2.0-3.0 mmol/L Arterial Blood Oxyhemoglobin 94.4 94.0-98.0 % Arterial Blood Carboxyhemoglobin 0.5 0.5-1.5 % Arterial Blood Methemoglobin 1.0 0.0-1.5 % Ghulam Test Yes Blood Gas Total Hemoglobin 7.80 L 13.5-17.5 g/dL Blood Gas Modality Room air FiO2 % 21.0 White Blood Count 5.5 4.4-10.8 10^3/uL Red Blood Count 2.33 L 4.5-5.90 10^6/uL Hemoglobin 7.3 #L 13.5-17.5 g/dL Hematocrit 21.2 #L 41.0-53.0 % Mean Corpuscular Volume 91.1 80.0-100.0 fL Mean Corpuscular Hemoglobin 31.4 28.0-32.0 pg Mean Corpuscular Hemoglobin Concent 34.4 32.0-36.0 g/dL Red Cell Distribution Width 14.8 H 11.8-14.3 % Platelet Count 127 L 140-450 10^3/uL Mean Platelet Volume 10.4 6.9-10.8 fL Neutrophils (%) (Auto) 84.7 H 37.0-80.0 % Lymphocytes (%) (Auto) 3.7 L 10.0-50.0 % Monocytes (%) (Auto) 9.4 0.0-12.0 % Eosinophils (%) (Auto) 1.8 0.0-7.0 % Basophils (%) (Auto) 0.4 0.0-2.0 % Neutrophils # (Auto) 4.7 1.6-8.6 10 ^3/uL Lymphocytes # (Auto) 0.2 L 0.4-5.4 10 ^3/uL Monocytes # (Auto) 0.5 0-1.3 10 ^3/uL Eosinophils # (Auto) 0.1 0-0.8 10 ^3/uL Basophils # (Auto) 0 0-0.2 10 ^3/uL Nucleated Red Blood Cells 0.0 % Sodium Level 143 136-145 mmol/L Potassium Level 4.1 3.5-5.1 mmol/L Chloride Level 115 H 98-107 mmol/L Carbon Dioxide Level 12 L 20-31 mmol/L Anion Gap 16 H 5-15 Blood Urea Nitrogen 116 #*H 9-23 mg/dL Creatinine 7.99 H 0.700-1.30 mg/dL Glomerular Filtration Rate Calc 6 >90 mL/min BUN/Creatinine Ratio 14.5 10.0-20.0 Serum Glucose 132 H 74-106 mg/dL Calcium Level 8.4 L 8.7-10.4 mg/dL Phosphorus Level 6.0 H 2.4-5.1 mg/dL Total Bilirubin 0.3 0.2-1.0 mg/dL Aspartate Amino Transferase (AST) < 8 L 13-40 U/L Alanine Aminotransferase (ALT) < 9 7-40 U/L Alkaline Phosphatase 67 46-116 U/L Creatine Kinase 220 H 46-171 U/L Total Protein 5.8 5.7-8.2 g/dL Albumin 3.7 3.2-4.8 g/dL Urine Color Light-yellow Yellow Urine Clarity Clear Clear Urine pH 5.5 5.0-9.0 Urine Specific [place] 1.012 1.001-1.035 Urine Protein 2+ H Negative Urine Ketones Negative Negative Urine Blood 3+ H Negative /uL Urine Nitrite Negative Negative Urine Bilirubin Negative Negative Urine Urobilinogen Normal Negative mg/dL Urine Leukocyte Esterase Trace Negative /uL Urine RBC 167 0 - 3 /hpf Urine Microscopic WBC 16 H 0-3 /HPF Urine Squamous Epithelial Cells None seen <5 /hpf Urine Bacteria Few H None Seen /hpf Urine Yeast (Budding) Occasional None Seen /hpf Urine Creatinine 131.55 H 30.0-125.0 mg/dL Urine Sodium 34 L 40-220 mmol/L Urine Glucose Normal Normal mg/dL POC Glucose 98 70-106 mg/dl Test 08/17/24 16:09 08/17/24 14:42 08/17/24 13:50 08/17/24 13:15 Range/Units Troponin I High Sensitivity 41 </=54 ng/L Blood Gas Critical Value Read Back Yes Blood Gas Notified Whom Dr mtz Blood Gas Notified Time [id number] Blood Gas Notified By SARS-CoV-2 Antigen (Rapid) Negative NEGATIVE Lactic Acid Level 0.5 0.4-2.0 mmol/L Microbiology Date/Time Source Procedure Growth Status 08/17/24 21:15 Voided Urine Urine Culture - Preliminary Resulted 08/17/24 13:15 Blood Blood Culture - Preliminary NO GROWTH AFTER 24 HOURS OF INCUBATION. Resulted Assessment Urinary catheter placement difficulty Gross hematuria BPH Prostate cancer, undergoing radiation Plan/Recommendation Cystoscopy with Sagastume catheter placement Plan discussed with: Patient, Spouse JAMES WILKINS MD August 18, 2024 15:39
[2024-08-18 16:03] VITALS: O2SAT 100
--- NOTE | 2024-08-18 16:03 | DVHNC2 ---
Procedure - OPERATIVE REPORT Pre-op. Diagnosis: Difficult Sagastume catheterization Sagastume trauma resulting in Gross hematuria Prostate cancer BPH Post-op. Diagnosis: Urethral stenosis Operation: Cystoscopy with urethral calibration (24104) Sagastume catheter placement Anesthesia: Local Indications: The indications, risks, complications, alternatives and benefits of a diagnostic cystoscopy with Sagastume catheter placement is discussed with the patient and family. All questions were encouraged and answered. Patient and elected to proceed and consent is obtained. Details of Procedure: Patient is given local anesthesia in the appropriate position. Area of the genitalia is prepped and draped in usual sterile fashion. Cystoscope is used to examine the urethra and bladder. Proximal membranous urethral trauma is noted. Guidewire was placed into the bladder. Bladder is accessed. Findings are noted. Cystoscope is removed and [employer] F [employer] tip catheter is placed over the guidewire into the bladder and secured in place. Patient tolerated the procedure well and all instrument counts are correct at the end of the examination. Specimens: None Complications: None Findings: Urethra: Mild urethral stenosis calibrated with cystoscopy and urethral sound PRostate: coapting latera lobes; protrusion into bladder, mild Bladder: distended appearance, 1+ trabeculations. No FB, tumors or stones. Notes: Sagastume to gravity x 2 weeks Voiding trial as outpatient JAMES WILKINS MD August 18, 2024 16:03
[2024-08-18 17:00] VITALS: BP 170/52; PULSE 57; RESP 18; TEMP 97.7; O2SAT 99
[2024-08-18 20:00] VITALS: PULSE 65; RESP 18; O2SAT 96
[2024-08-18 21:00] VITALS: BP 169/77; PULSE 61; RESP 18; TEMP 98.9; O2SAT 98
[2024-08-19] VITALS (12 sets, daily range): BP systolic 149–182; BP diastolic 53–95; PULSE 60–75; RESP 16–20; TEMP 96.6–99.4; O2SAT 97–98
[2024-08-19] MEDS ORDERED: HYDR25TA88 PO (08:00)
[2024-08-19] MEDS ORDERED: FURO40TA4 PO (08:00)
[2024-08-19] MEDS ORDERED: LISI40TA16 PO (08:00)
[2024-08-19] MEDS ORDERED: TRAZ-227 PO (08:00)
[2024-08-19] MEDS ORDERED: [UNRECOGNIZED DRUG - CODE] PO (08:00)
[2024-08-19] MEDS ORDERED: OMEG-20 PO (08:00)
[2024-08-19] MEDS ORDERED: AMLO1TAB22 PO (08:00)
[2024-08-19] MEDS ORDERED: LOVA40TA72 PO (08:00)
[2024-08-19] MEDS ORDERED: MULT-1018 PO (08:00)
[2024-08-19 09:02] LABS: Basophils # (auto) 0 10 ^3/uL (0-0.2); Eosinophils # (auto) 0.3 10 ^3/uL (0-0.8); Hematocrit 21.1 % (41.0-53.0); Hemoglobin 7.2 g/dL (13.5-17.5); Lymphocytes # (auto) 0.3 10 ^3/uL (0.4-5.4); Monocytes # (auto) 0.6 10 ^3/uL (0-1.3); Red Blood Cells 2.32 10^6/uL (4.5-5.90)
[2024-08-19 09:05] LABS: Basophils % (auto) 0.7 % (0.0-2.0); Eosinophils % (auto) 4.3 % (0.0-7.0); Lymphocytes % (auto) 3.9 % (10.0-50.0); Mean Corpuscular Hemoglobin 30.8 pg (28.0-32.0); Mean Corpuscular Volume 90.7 fL (80.0-100.0); Monocytes % (auto) 8.9 % (0.0-12.0); Neutrophils # (auto) 5.5 10 ^3/uL (1.6-8.6); Neutrophils % (auto) 82.2 % (37.0-80.0); Platelet Count (auto) 122 10^3/uL (140-450); White Blood Cell 6.7 10^3/uL (4.4-10.8)
[2024-08-19 09:15] LABS: Anion Gap 13 (5-15); Potassium 3.5 mmol/L (3.5-5.1); Sodium 145 mmol/L (136-145)
[2024-08-19 09:16] LABS: Carbon Dioxide 16 mmol/L (20-31); Chloride 116 mmol/L (98-107)
[2024-08-19 09:18] LABS: Calcium 8.5 mg/dL (8.7-10.4)
[2024-08-19 09:35] LABS: Blood Urea Nitrogen 94 mg/dL (9-23); Glucose 133 mg/dL (74-106)
[2024-08-19] MEDS: LACTATED RINGER'S 1,000 ML IV SCH (11:09)
--- NOTE | 2024-08-19 12:21 | DVHPN2 ---
Progress Note Date Seen: August 19, 2024 Medical Necessity Reason Pt with a Central, PICC or Fol: Yes The following are medically ne: Royal Catheter Reason for royal catheter: Bladder Retention/Obstruc Subjective Patient reports: Feels better Review of Systems: :Abnormal Objective vital signs Vital Sign Date Time Temp Pulse Resp B/P (MAP) Pulse Ox O2 Delivery O2 Flow Rate FiO2 08/19/24 11:22 162/70 08/19/24 09:00 99.1 67 17 97 99.1 08/19/24 08:00 Room Air* 0 21 Total Intake and Output 08/18/24 08/18/24 08/19/24 15:00 23:00 07:00 Intake Total 850 ml 1450 ml Output Total 240 ml 850 ml Balance 610 ml 600 ml medications Current Medications Medications Dose Ordered Sig/Mukesh Route Start Time Stop Time Status Last Admin Dose Admin Acetaminophen/ Hydrocodone Bitart 1 tab Q4HP PRN PO 08/17/24 16:30 Ondansetron HCl 4 mg Q4HP PRN IV 08/17/24 16:30 Acetaminophen 650 mg Q6HP PRN PO 08/17/24 16:30 Morphine Sulfate 2 mg Q4HPRN PRN IV 08/17/24 16:30 Nitroglycerin 0.4 mg Q5MINP PRN SL 08/17/24 16:30 Morphine Sulfate 2 mg Q30M PRN IV 08/17/24 16:30 Hydralazine HCl 10 mg Q6HP PRN IV 08/18/24 04:15 08/19/24 11:22 10 MG Ceftriaxone Sodium 50 ml @ 100 mls/hr DAILY@09 IV 08/18/24 12:45 08/19/24 08:38 100 MLS/HR Lactated Ringer's 1,000 ml @ 75 mls/hr [id number] IV 08/19/24 10:00 08/19/24 11:09 75 MLS/HR Examination: GENERAL:Normal, CVS:Normal, SKIN:Normal laboratory and microbiology Laboratory Tests 08/19/24 08:27 Test 08/19/24 08:27 Range/Units Serum Glucose 133 H 74-106 mg/dL Microbiology Date/Time Source Procedure Growth Status 08/17/24 21:15 Voided Urine Urine Culture - Preliminary Resulted 08/17/24 13:15 Blood Blood Culture - Preliminary NO GROWTH AFTER 24 HOURS OF INCUBATION. Resulted Problem List/Assessment/Plan Problem List/Assessment/Plan Acute kidney injury likely prerenal in the setting of volume depletion Renal function is unknown to me Prostate cancer on therapy causing obstruction is now s/p royal Metabolic acidosis Anemia Hyperphosphatemia renal function is improved but not normalized, appetite and confusion resolving Change sodium bicarbonate drip to LR PRBC today due to anemia in CKD patient change to phos restriction, repeat Phos level tomorrow if not improved start binder Urology to placed Royal catheter in OR after cystoscopy which will remain as per urology recs. urine color is clear today Strict Is&Os No emergent indication for hemodialysis at this time we will monitor fluid balance and electrolytes closely. Plan discussed with: Patient, Other (sister) My Orders My Orders Orders - BRETT SLADE MD Procedure Category Date Status Time Ceftriaxone 1gm/50ml PHA 08/18/24 In Process D5w (Rocephin) 12:45 Basic Metabolic Panel LAB 08/20/24 Verified 04:00 Lactated Ringer's PHA 08/19/24 In Process 10:00 Transfuse Blood ORDERS 08/19/24 Transmitted Product 11:02 Complete Blood Count LAB 08/20/24 Verified 04:00 BRETT SLADE MD August 19, 2024 12:21
--- NOTE | 2024-08-19 14:31 | DVHPN2 ---
Subjective Overnight events noted. Patient underwent cystoscopy for Sagastume catheter placement. Kidney functions improve mildly. Changes from previous H/P or p: No Changes Objective Vitals Vital Signs Date Time Temp Pulse Resp B/P (MAP) Pulse Ox O2 Delivery O2 Flow Rate FiO2 08/19/24 11:22 162/70 08/19/24 09:00 99.1 67 17 97 99.1 08/19/24 08:00 Room Air* 0 21 Intake/Output Intake and Output 08/19/24 07:00 Intake Total 2300 ml Output Total 1090 ml Balance 1210 ml Intake Oral 375 ml IV Total 1925 ml Output Urine Total 1090 ml Exam HEENT pupils are reactive Neck is supple CV is S1-S2 regular rate and rhythm Respiratory diminished breath sounds bases GI positive bowel sound Extremity no edema [employer] no motor deficit Medications Current Medications Medications Dose Ordered Sig/Mukesh Route Start Time Stop Time Status Last Admin Dose Admin Acetaminophen/ Hydrocodone Bitart 1 tab Q4HP PRN PO 08/17/24 16:30 Ondansetron HCl 4 mg Q4HP PRN IV 08/17/24 16:30 Acetaminophen 650 mg Q6HP PRN PO 08/17/24 16:30 Morphine Sulfate 2 mg Q4HPRN PRN IV 08/17/24 16:30 Nitroglycerin 0.4 mg Q5MINP PRN SL 08/17/24 16:30 Morphine Sulfate 2 mg Q30M PRN IV 08/17/24 16:30 Hydralazine HCl 10 mg Q6HP PRN IV 08/18/24 04:15 08/19/24 11:22 10 MG Ceftriaxone Sodium 50 ml @ 100 mls/hr DAILY@09 IV 08/18/24 12:45 08/19/24 08:38 100 MLS/HR Lactated Ringer's 1,000 ml @ 75 mls/hr [id number] IV 08/19/24 10:00 08/19/24 11:09 75 MLS/HR Laboratory Results Laboratory Tests 08/19/24 08:27 Chemistry Test 08/19/24 08:27 Calcium Level 8.5 mg/dL (8.7-10.4) L Urinalysis Test 08/17/24 21:15 Urine Color Light-yellow (Yellow) Urine Clarity Clear (Clear) Urine pH 5.5 (5.0-9.0) Urine Specific [place] 1.012 (1.001-1.035) Urine Protein 2+ (Negative) H Urine Ketones Negative (Negative) Urine Blood 3+ /uL (Negative) H Urine Nitrite Negative (Negative) Urine Bilirubin Negative (Negative) Urine Urobilinogen Normal mg/dL (Negative) Urine Leukocyte Esterase Trace /uL (Negative) Urine RBC 167 /hpf (0 - 3) Urine Microscopic WBC 16 /HPF (0-3) H Urine Squamous Epithelial Cells None seen /hpf (<5) Urine Bacteria Few /hpf (None Seen) H Urine Yeast (Budding) Occasional /hpf (None Urine Creatinine 131.55 mg/dL (30.0-125.0) H Urine Sodium 34 mmol/L (40-220) L Urine Glucose Normal mg/dL (Normal) Microbiology Microbiology Date/Time Source Procedure Growth Status 08/17/24 21:15 Voided Urine Urine Culture - Preliminary Resulted 08/17/24 13:15 Blood Blood Culture - Preliminary NO GROWTH AFTER 48 HOURS OF INCUBATION. Resulted Assessment/Plan Assessment/Plan 88-year-old male with a known history of hypertension, gout, dyslipidemia , history of prostate cancer status post radiation, presented to the hospital with unable to eat, nausea and vomiting and constipation found to have 1. Acute metabolic encephalopathy, currently improving 2. Severe metabolic acidosis secondary to dehydration 3. Acute kidney injury suspected secondary to vasomotor nephropathy 4. Hyperkalemia, improved 5. Hypertension 6. Dyslipidemia 8. History of prostate cancer status post radiation 9. Traumatic hematuria suspected urethral stricture status post Sagastume catheter placement with cystoscopy -status post cystoscopy with a Sagastume catheter placement - tele downgrade, bicarb drip, check UA urine culture, renal ultrasound, Plan discussed with: Patient, Daughter Date of Service: August 19, 2024 Billing Provider: MADAN ANDERSON MD Common Visit Codes: NOT BILLABLE MADAN ANDERSON MD August 19, 2024 14:31
[2024-08-19] MEDS: ACETAMINOPHEN 325 MG TAB PO PRN (17:11)
[2024-08-19] MEDS: hydrALAZINE HCL 25 MG TAB PO SCH (21:43)
[2024-08-20] VITALS (8 sets, daily range): BP systolic 129–167; BP diastolic 51–78; PULSE 58–97; RESP 17–19; TEMP 97.3–99.5; O2SAT 92–98
[2024-08-20 08:28] LABS: Basophils # (auto) 0 10 ^3/uL (0-0.2); Eosinophils # (auto) 0.3 10 ^3/uL (0-0.8); Hemoglobin 8.4 g/dL (13.5-17.5); Lymphocytes # (auto) 0.4 10 ^3/uL (0.4-5.4); Monocytes # (auto) 0.6 10 ^3/uL (0-1.3)
[2024-08-20 08:29] LABS: Basophils % (auto) 0.5 % (0.0-2.0); Eosinophils % (auto) 4.1 % (0.0-7.0); Hematocrit 24.6 % (41.0-53.0); Lymphocytes % (auto) 5.7 % (10.0-50.0); Mean Corpuscular Hemoglobin 31.6 pg (28.0-32.0); Mean Corpuscular Volume 92.9 fL (80.0-100.0); Monocytes % (auto) 8.2 % (0.0-12.0); Neutrophils % (auto) 81.5 % (37.0-80.0); Nucleated Red Blood Cells % 0.2 %; Platelet Count (auto) 116 10^3/uL (140-450); Red Blood Cells 2.65 10^6/uL (4.5-5.90); Red Cell Distribution Width 15.3 % (11.8-14.3); White Blood Cell 7.4 10^3/uL (4.4-10.8)
[2024-08-20 08:33] LABS: Potassium 3.9 mmol/L (3.5-5.1)
[2024-08-20 08:34] LABS: Calcium 8.8 mg/dL (8.7-10.4)
[2024-08-20 08:36] LABS: Anion Gap 12 (5-15); Carbon Dioxide 14 mmol/L (20-31); Chloride 119 mmol/L (98-107); Sodium 145 mmol/L (136-145)
[2024-08-20 08:39] LABS: BUN/Creatinine Ratio 14.1 (10.0-20.0); Glucose 95 mg/dL (74-106)
[2024-08-20 08:41] LABS: Blood Urea Nitrogen 66 mg/dL (9-23)
[2024-08-20 08:42] LABS: Phosphorus 4.4 mg/dL (2.4-5.1)
[2024-08-20] MEDS: FUROSEMIDE 20 MG TAB PO SCH (08:43)
[2024-08-20] MEDS: amLODIPine BESYLATE 5 MG TAB PO SCH (08:43)
[2024-08-20] MEDS: LISINOPRIL 20 MG TAB PO SCH (08:44)
--- NOTE | 2024-08-20 11:26 | DVHPN2 ---
Progress Note Date Seen: August 20, 2024 Medical Necessity Reason Pt with a Central, PICC or Fol: Yes The following are medically ne: Royal Catheter Reason for royal catheter: Bladder Retention/Obstruc Subjective Patient reports: Feels better Review of Systems: Deferred Objective vital signs Vital Sign Date Time Temp Pulse Resp B/P (MAP) Pulse Ox O2 Delivery O2 Flow Rate FiO2 08/20/24 09:00 99.5 58 17 167/71 (103) 97 99.5 08/20/24 08:00 Room Air* 0 21 Total Intake and Output 08/19/24 08/19/24 08/20/24 15:00 23:00 07:00 Intake Total 50 ml 975 ml 827 ml Output Total 900 ml 1000 ml Balance 50 ml 75 ml -173 ml medications Current Medications Medications Dose Ordered Sig/Mukesh Route Start Time Stop Time Status Last Admin Dose Admin Acetaminophen/ Hydrocodone Bitart 1 tab Q4HP PRN PO 08/17/24 16:30 Ondansetron HCl 4 mg Q4HP PRN IV 08/17/24 16:30 Acetaminophen 650 mg Q6HP PRN PO 08/17/24 16:30 08/20/24 03:54 650 MG Morphine Sulfate 2 mg Q4HPRN PRN IV 08/17/24 16:30 Nitroglycerin 0.4 mg Q5MINP PRN SL 08/17/24 16:30 Morphine Sulfate 2 mg Q30M PRN IV 08/17/24 16:30 Hydralazine HCl 10 mg Q6HP PRN IV 08/18/24 04:15 08/20/24 00:13 10 MG Ceftriaxone Sodium 50 ml @ 100 mls/hr DAILY@09 IV 08/18/24 12:45 08/20/24 08:42 100 MLS/HR Lactated Ringer's 1,000 ml @ 75 mls/hr [id number] IV 08/19/24 10:00 08/20/24 03:34 75 MLS/HR Lisinopril 40 mg DAILY PO 08/20/24 10:00 08/20/24 08:44 40 MG Hydralazine HCl 25 mg Q12HR PO 08/19/24 22:00 08/20/24 08:44 25 MG Furosemide 20 mg DAILY PO 08/20/24 10:00 08/20/24 08:43 20 MG Amlodipine Besylate 10 mg DAILY PO 08/20/24 10:00 08/20/24 08:43 10 MG Examination: GENERAL:Normal, CVS:Normal laboratory and microbiology Laboratory Tests 08/20/24 07:40 Test 08/20/24 07:40 Range/Units Serum Glucose 95 74-106 mg/dL Microbiology Date/Time Source Procedure Growth Status 08/17/24 21:15 Voided Urine Urine Culture - Preliminary Resulted 08/17/24 13:15 Blood Blood Culture - Preliminary NO GROWTH AFTER 48 HOURS OF INCUBATION. Resulted Problem List/Assessment/Plan Problem List/Assessment/Plan Acute kidney injury likely prerenal in the setting of volume depletion Renal function is unknown to me Prostate cancer on therapy causing obstruction is now s/p royal Metabolic acidosis Anemia renal function is improved but not normalized continue IVF LR recommend s/p PRBC yesterday hb improved no phos binder needed Urology to placed Royal catheter in OR after cystoscopy which will remain as per urology recs. Strict Is&Os No emergent indication for hemodialysis at this time we will monitor fluid balance and electrolytes closely. Plan discussed with: Patient My Orders My Orders Orders - BRETT SLADE MD Procedure Category Date Status Time Regular Diet DIET 08/19/24 Transmitted Lunch BRETT SLADE MD August 20, 2024 11:26
[2024-08-20] MEDS: ONDANSETRON HCL 4 MG/2 ML VIAL IV PRN (12:34)
--- NOTE | 2024-08-20 15:20 | DVHPN2 ---
Progress Note - Dictate Date Seen: August 20, 2024 Medical Necessity Reason Pt with a Central, PICC or Fol: Yes The following are medically ne: Royal Catheter Reason for royal catheter: Bladder Retention/Obstruc Subjective He is alert awake oriented to place and person. His daughter who is visiting him from [place] is at bedside. Patient apparently lives alone at home. Patient has been getting radiation treatments for his prostate cancer as an outpatient basis vital signs Vital Sign Date Time Temp Pulse Resp B/P (MAP) Pulse Ox O2 Delivery O2 Flow Rate FiO2 08/20/24 13:00 98.6 61 18 152/57 (88) 97 98.6 08/20/24 08:00 Room Air* 0 21 Total Intake and Output 08/19/24 08/19/24 08/20/24 15:00 23:00 07:00 Intake Total 50 ml 975 ml 827 ml Output Total 900 ml 1000 ml Balance 50 ml 75 ml -173 ml medications Current Medications Medications Dose Ordered Sig/Mukesh Route Start Time Stop Time Status Last Admin Dose Admin Acetaminophen/ Hydrocodone Bitart 1 tab Q4HP PRN PO 08/17/24 16:30 Ondansetron HCl 4 mg Q4HP PRN IV 08/17/24 16:30 08/20/24 12:34 4 MG Acetaminophen 650 mg Q6HP PRN PO 08/17/24 16:30 08/20/24 03:54 650 MG Morphine Sulfate 2 mg Q4HPRN PRN IV 08/17/24 16:30 Nitroglycerin 0.4 mg Q5MINP PRN SL 08/17/24 16:30 Morphine Sulfate 2 mg Q30M PRN IV 08/17/24 16:30 Hydralazine HCl 10 mg Q6HP PRN IV 08/18/24 04:15 08/20/24 00:13 10 MG Furosemide 20 mg DAILY PO 08/20/24 10:00 08/20/24 08:43 20 MG Amlodipine Besylate 10 mg DAILY PO 08/20/24 10:00 08/20/24 08:43 10 MG Hydralazine HCl 50 mg TID PO 08/20/24 22:00 UNV Pantoprazole Sodium 40 mg DAILY@0600 PO 08/21/24 06:00 UNV Sucralfate 1 gm TID@0600,1130,2200 PO 08/20/24 22:00 UNV objective Alert awake oriented to place and person comfortable in bed without distress. HEENT neck supple no JVD. Heart regular rate and rhythm S1-S2. Lungs without rales wheezes. Abdomen obese soft positive bowel sounds. Extremities no edema positive pulses. Royal catheter present without any hematuria. laboratory and microbiology Laboratory Tests 08/20/24 07:40 Test 08/20/24 07:40 Range/Units Serum Glucose 95 74-106 mg/dL Assessment/Plan Prostate cancer Status post cystoscopy with the dilatation of urethral stricture Obstructive uropathy post Royal catheter placement Acute kidney injury with prerenal azotemia due to obstructive uropathy Patient had cystoscopy with the dilatation and Royal catheter in place. He is kidney function has significantly improved. Good urine output. His mentation is back to baseline status. However given the patient lives alone and unable to care for him his daughter is requesting patient to be placed. Apparently daughter lives in [place] and she is going back there tomorrow afternoon. Discussed with the [facility] case management. Interim at present plan is for him to go to residential facility per brief period of time. From there patient we will either need to be placed at a boarding care versus home with in-home caregivers. This is discussed at length with the daughter at bedside along with the nurse at bedside. Problems(with codes): (1) Dehydration (2) Hyperkalemia (3) Metabolic acidosis Plan discussed with: Daughter, Other JULIO CÉSAR PETERS MD August 20, 2024 15:20
[2024-08-20] MEDS: PANTOPRAZOLE 40 MG TAB PO ONE (18:56)
[2024-08-20] MEDS: SUCRALFATE 1 GM/10 ML ORAL SUSP PO SCH (22:10)
[2024-08-20] MEDS: hydrALAZINE HCL 25 MG TAB PO SCH (22:12)
[2024-08-21 01:00] VITALS: BP 143/68; PULSE 55; RESP 19; TEMP 97.8; O2SAT 97
[2024-08-21] MEDS: HYDROcodone-ACET 5/325MG TAB PO PRN (01:17)
[2024-08-21 05:00] VITALS: BP 172/67; PULSE 63; RESP 20; TEMP 97; O2SAT 97
[2024-08-21] MEDS: PANTOPRAZOLE 40 MG TAB PO SCH (06:48)
--- NOTE | 2024-08-21 07:59 | DVHDS2 ---
Discharge Summary Date of Admission August 17, 2024 at 16:18 Date of Discharge: August 21, 2024 Labs/Diagnostic Data: Laboratory Results Test 08/20/24 07:40 08/18/24 13:55 08/18/24 05:41 08/17/24 21:15 White Blood Count 7.4 10^3/uL (4.4-10.8) Red Blood Count 2.65 10^6/uL (4.5-5.90) Hemoglobin 8.4 g/dL (13.5-17.5) Hematocrit 24.6 % (41.0-53.0) Mean Corpuscular Volume 92.9 fL (80.0-100.0) Mean Corpuscular Hemoglobin 31.6 pg (28.0-32.0) Mean Corpuscular Hemoglobin Concent 34.0 g/dL (32.0-36.0) Red Cell Distribution Width 15.3 % (11.8-14.3) Platelet Count 116 10^3/uL (140-450) Mean Platelet Volume 10.5 fL (6.9-10.8) Neutrophils (%) (Auto) 81.5 % (37.0-80.0) Lymphocytes (%) (Auto) 5.7 % (10.0-50.0) Monocytes (%) (Auto) 8.2 % (0.0-12.0) Eosinophils (%) (Auto) 4.1 % (0.0-7.0) Basophils (%) (Auto) 0.5 % (0.0-2.0) Neutrophils # (Auto) 6.0 10 ^3/uL (1.6-8.6) Lymphocytes # (Auto) 0.4 10 ^3/uL (0.4-5.4) Monocytes # (Auto) 0.6 10 ^3/uL (0-1.3) Eosinophils # (Auto) 0.3 10 ^3/uL (0-0.8) Basophils # (Auto) 0 10 ^3/uL (0-0.2) Nucleated Red Blood Cells 0.2 % Sodium Level 145 mmol/L (136-145) Potassium Level 3.9 mmol/L (3.5-5.1) Chloride Level 119 mmol/L (98-107) Carbon Dioxide Level 14 mmol/L (20-31) Anion Gap 12 (5-15) Blood Urea Nitrogen 66 mg/dL (9-23) Creatinine 4.68 mg/dL (0.700-1.30) Glomerular Filtration Rate Calc 12 mL/min (>90) BUN/Creatinine Ratio 14.1 (10.0-20.0) Serum Glucose 95 mg/dL (74-106) Calcium Level 8.8 mg/dL (8.7-10.4) Phosphorus Level 4.4 mg/dL (2.4-5.1) Blood Gas Specimen Type Arterial Blood Gas Sample Site Right radial Blood Gas Patient Temperature 37.0 Arterial Blood Date Drawn [id number] Arterial Blood pH 7.281 (7.350-7.450) Arterial Blood Partial Pressure CO2 24.9 mmHg (35.0-48.0) Arterial Blood Partial Pressure O2 90.5 mmHg (83.0-108.0) Arterial Blood HCO3 11.5 mmol/L (21.0-28.0) Arterial Blood Oxygen Saturation 95.8 % (94.0-98.0) Arterial Blood Base Excess -13.9 mmol/L (-2.0-3.0) Arterial Blood Oxyhemoglobin 94.4 % (94.0-98.0) Arterial Blood Carboxyhemoglobin 0.5 % (0.5-1.5) Arterial Blood Methemoglobin 1.0 % (0.0-1.5) Ghulam Test Yes Blood Gas Total Hemoglobin 7.80 g/dL (13.5-17.5) Blood Gas Modality Room air FiO2 % 21.0 Total Bilirubin 0.3 mg/dL (0.2-1.0) Aspartate Amino Transferase (AST) < 8 U/L (13-40) Alanine Aminotransferase (ALT) < 9 U/L (7-40) Alkaline Phosphatase 67 U/L (46-116) Creatine Kinase 220 U/L (46-171) Total Protein 5.8 g/dL (5.7-8.2) Albumin 3.7 g/dL (3.2-4.8) Urine Color Light-yellow (Yellow) Urine Clarity Clear (Clear) Urine pH 5.5 (5.0-9.0) Urine Specific [place] 1.012 (1.001-1.035) Urine Protein 2+ (Negative) Urine Ketones Negative (Negative) Urine Blood 3+ /uL (Negative) Urine Nitrite Negative (Negative) Urine Bilirubin Negative (Negative) Urine Urobilinogen Normal mg/dL (Negative) Urine Leukocyte Esterase Trace /uL (Negative) Urine RBC 167 /hpf (0 - 3) Urine Microscopic WBC 16 /HPF (0-3) Urine Squamous Epithelial Cells None seen /hpf (<5) Urine Bacteria Few /hpf (None Seen) Urine Yeast (Budding) Occasional /hpf (None Urine Creatinine 131.55 mg/dL (30.0-125.0) Urine Sodium 34 mmol/L (40-220) Urine Glucose Normal mg/dL (Normal) Test 08/17/24 16:28 08/17/24 16:09 08/17/24 14:42 08/17/24 13:50 POC Glucose 98 mg/dl (70-106) Troponin I High Sensitivity 41 ng/L (</=54) Blood Gas Critical Value Read Back Yes Blood Gas Notified Whom Dr mtz Blood Gas Notified Time [id number] Blood Gas Notified By SARS-CoV-2 Antigen (Rapid) Negative (NEGATIVE) Test 08/17/24 13:15 Lactic Acid Level 0.5 mmol/L (0.4-2.0) Other Laboratory Tests 08/20/24 07:40 Brief Hx & Hospital Course: 58-year-old male with a known history of hypertension, dyslipidemia, history of gout, currently on lovastatin lisinopril and Lasix at home, history of prostate cancer status post radiation currently getting active radiation presented to the hospital with altered mental status. As per daughter at bedside patient lives alone and she lives in [place]. She called him and then he was not making any sense eventually she flew down to see him. Patient was more altered as well as constipated. Eventually in the ER patient was found to have med severe metabolic acidosis secondary to dehydration as well as a acute kidney injury with a hyperkalemia. Number daughter patient's has not been eating or drinking for last week and a half. Patient is not making much urine as per his statement. Royal catheter has been ordered. Bicarb drip will be ordered. He is admitted and underwent evaluations with the slate splitting supervisor and a urologist. Patient noted to have obstructive uropathy felt causing his acute kidney injury with vasomotor nephropathy. Therefore patient received hydration and subsequently underwent cystoscopy with a urethral dilatation and placement of Royal catheter. Patient does have a large prostate with prostate cancer. Post Royal catheter placement obstructive uropathy resolved and his kidney function has significantly improved. Patient is having a normal urinary output. Patient's mentation is back to baseline normal status. However given patient's lives alone it is felt he would benefit from going to a [facility] facility for brief period of time for physical therapy with a Royal catheter change to leg bag. I have talked to patient and his daughter who is visiting him from out of state who is at bedside regarding his hospital diagnosis, treatment he received, discharge medications, discharge instructions and follow-up plan of care. I have advised her that patient probably needs a the in-home caregivers/support services versus boarding care where he can get the care he needs given he lives alone with multiple comorbid medical conditions and Royal catheter. At present patient and daughter verbalized understanding of him going to [facility] facility and subsequently look into probable placement. Have talked to both of them regarding his hospital diagnosis, care he received, discharge medications, discharge instructions and follow-up plan of care. They have verbalized understanding of these and agree with the care plan as outlined. Consults/Reason for consult Assessment Urinary catheter placement difficulty Gross hematuria BPH Prostate cancer, undergoing radiation Plan/Recommendation Cystoscopy with Royal catheter placement Plan discussed with: Patient, Spouse JAMES FELIX MD August 18, 2024 15:39 Operations or Procedures Procedure - OPERATIVE REPORT Pre-op. Diagnosis: Difficult Royal catheterization Royal trauma resulting in Gross hematuria Prostate cancer BPH Post-op. Diagnosis: Urethral stenosis Operation: Cystoscopy with urethral calibration (54631) Royal catheter placement Anesthesia: Local Indications: The indications, risks, complications, alternatives and benefits of a diagnostic cystoscopy with Royal catheter placement is discussed with the patient and family. All questions were encouraged and answered. Patient and elected to proceed and consent is obtained. Details of Procedure: Patient is given local anesthesia in the appropriate position. Area of the genitalia is prepped and draped in usual sterile fashion. Cystoscope is used to examine the urethra and bladder. Proximal membranous urethral trauma is noted. Guidewire was placed into the bladder. Bladder is accessed. Findings are noted. Cystoscope is removed and 18 F Senior Operations Analyst tip catheter is placed over the guidewire into the bladder and secured in place. Patient tolerated the procedure well and all instrument counts are correct at the end of the examination. Specimens: None Complications: None Findings: Urethra: Mild urethral stenosis calibrated with cystoscopy and urethral sound PRostate: coapting latera lobes; protrusion into bladder, mild Bladder: distended appearance, 1+ trabeculations. No FB, tumors or stones. Notes: Royal to gravity x 2 weeks Voiding trial as outpatient JAMES FELIX MD August 18, 2024 16:03 ORDER NUMBER(s): [id number], ACCESSION NUMBER(s): [id number] EXAM: US KIDNEY HISTORY: Acute kidney injury COMPARISON: None TECHNIQUE: Ultrasound evaluation of the kidneys was performed. FINDINGS: The right kidney measures 0.2 cm. The left kidney measures 9.7 cm. No hydronephrosis, solid renal masses, cortical thinning, or abnormal cortical echogenicity bilaterally. Prevoid bladder volume 210 mL. Bladder wall thickness 1.6 mm. Patient unable to void IMPRESSION: 1. Right kidney measures 9.2 cm. Left kidney measures 9.7 cm. 2. Bladder contains 210 mL of urine and patient has no urge to void at this time. ATED BY: DELL TEMPLE Jr. DO DICTATED DATE/TIME: 08/17/24 1705 Condition at Discharge: Stable Final Diagnosis/Problems List obstructive uropathy, prostate cancer, esther, indwelling royal now, urethral striture s/p dilatation Discharge Disposition[facility] Facility Discharge Instruct/Medications Diet: Cardiac 2g Na,low cholest, Renal Activity: No Restrictions, As Tolerated Follow Up/Referral: /[facility] for esther and to repeat bmp labs in [address]Samuel Felix urologist next week for royal cath eval/follow up uropathy Medications: per transfer med recon list Discharge Statement: "Patient was advised to return to the ER or call 911 if any headaches, dizziness, shortness of breath, chest pain, abdominal pain, bleeding, fevers, or worsening of medical condition. Patient was counseled about treatment plan, medications, possible side effects, patientverbalized understanding. All questions were answered to the best of my ability. This discharge took greater then 30 minutes in planning, reviewing documentation, counseling the patient, and discussing with other team members." ASSESSMENT ASSESSMENT Assessment obstructive uropathy, prostate cancer, esther, indwelling royal now, urethral striture s/p dilatation GANAPAVARAPU,JULIO CÉSAR MD August 21, 2024 07:59
[2024-08-21 08:00] VITALS: PULSE 74; PULSE 82; RESP 18; O2SAT 97
[2024-08-21 08:38] VITALS: BP 156/61; PULSE 74; RESP 18; TEMP 97; O2SAT 97
[2024-08-21 09:00] VITALS: BP_SYST 112; BP_SYST 162; BP_DIAS 65; BP_DIAS 74; PULSE 63; PULSE 74; RESP 16; RESP 18; TEMP 97; O2SAT 97; O2SAT 99
[2024-08-21 09:53] LABS: Basophils # (auto) 0.1 10 ^3/uL (0-0.2); Basophils % (auto) 0.6 % (0.0-2.0); Eosinophils # (auto) 0.2 10 ^3/uL (0-0.8); Eosinophils % (auto) 2.6 % (0.0-7.0); Hematocrit 26.6 % (41.0-53.0); Hemoglobin 9.1 g/dL (13.5-17.5); Lymphocytes # (auto) 0.3 10 ^3/uL (0.4-5.4); Lymphocytes % (auto) 3.9 % (10.0-50.0); Mean Corpuscular Hemoglobin 30.5 pg (28.0-32.0); Mean Corpuscular Volume 89.6 fL (80.0-100.0); Monocytes # (auto) 0.5 10 ^3/uL (0-1.3); Monocytes % (auto) 6.4 % (0.0-12.0); Neutrophils # (auto) 7.1 10 ^3/uL (1.6-8.6); Neutrophils % (auto) 86.5 % (37.0-80.0); Platelet Count (auto) 125 10^3/uL (140-450); Red Blood Cells 2.97 10^6/uL (4.5-5.90); Red Cell Distribution Width 15.2 % (11.8-14.3); White Blood Cell 8.2 10^3/uL (4.4-10.8)
[2024-08-21 10:04] LABS: Calcium 9.1 mg/dL (8.7-10.4)
[2024-08-21 10:09] LABS: BUN/Creatinine Ratio 16.1 (10.0-20.0)
[2024-08-21 10:16] LABS: Carbon Dioxide 18 mmol/L (20-31)
[2024-08-21 10:17] LABS: Blood Urea Nitrogen 67 mg/dL (9-23); Glucose 118 mg/dL (74-106)
[2024-08-21 10:22] LABS: Anion Gap 11 (5-15); Chloride 117 mmol/L (98-107); Potassium 3.4 mmol/L (3.5-5.1); Sodium 146 mmol/L (136-145)
--- NOTE | 2024-08-21 10:24 | DVHPN2 ---
Progress Note Date Seen: August 21, 2024 Medical Necessity Reason Pt with a Central, PICC or Fol: Yes The following are medically ne: Royal Catheter Reason for royal catheter: Bladder Retention/Obstruc Subjective Patient reports: Feels better Review of Systems: HEENT:Normal Objective vital signs Vital Sign Date Time Temp Pulse Resp B/P (MAP) Pulse Ox O2 Delivery O2 Flow Rate FiO2 08/21/24 09:34 162/74 08/21/24 09:00 97.0 74 18 97 97.0 08/20/24 20:00 Room Air* 0 21 Total Intake and Output 08/20/24 08/20/24 08/21/24 14:59 22:59 06:59 Intake Total 50 ml 400 ml 20 ml Output Total 800 ml 1000 ml Balance 50 ml -400 ml -980 ml medications Current Medications Medications Dose Ordered Sig/Mukesh Route Start Time Stop Time Status Last Admin Dose Admin Acetaminophen/ Hydrocodone Bitart 1 tab Q4HP PRN PO 08/17/24 16:30 08/21/24 01:17 1 TAB Ondansetron HCl 4 mg Q4HP PRN IV 08/17/24 16:30 08/20/24 12:34 4 MG Acetaminophen 650 mg Q6HP PRN PO 08/17/24 16:30 08/20/24 03:54 650 MG Morphine Sulfate 2 mg Q4HPRN PRN IV 08/17/24 16:30 Nitroglycerin 0.4 mg Q5MINP PRN SL 08/17/24 16:30 Morphine Sulfate 2 mg Q30M PRN IV 08/17/24 16:30 Hydralazine HCl 10 mg Q6HP PRN IV 08/18/24 04:15 08/21/24 04:42 10 MG Furosemide 20 mg DAILY PO 08/20/24 10:00 08/21/24 09:34 20 MG Amlodipine Besylate 10 mg DAILY PO 08/20/24 10:00 08/21/24 09:34 10 MG Hydralazine HCl 50 mg TID PO 08/20/24 22:00 08/21/24 06:48 50 MG Pantoprazole Sodium 40 mg DAILY@0600 PO 08/21/24 06:00 08/21/24 06:48 40 MG Sucralfate 1 gm TID@0600,1130,2200 PO 08/20/24 22:00 08/21/24 06:48 1 GM Examination: GENERAL:Normal, SKIN:Normal, :Abnormal laboratory and microbiology Laboratory Tests 08/21/24 09:06 Test 08/21/24 09:06 Range/Units Serum Glucose 118 H 74-106 mg/dL Microbiology Date/Time Source Procedure Growth Status 08/17/24 21:15 Voided Urine Urine Culture - Preliminary Resulted 08/17/24 13:15 Blood Blood Culture - Preliminary NO GROWTH AFTER 72 HOURS OF INCUBATION. Resulted Problem List/Assessment/Plan Problem List/Assessment/Plan Acute kidney injury likely prerenal in the setting of volume depletion Renal function is unknown to me Prostate cancer on therapy causing obstruction is now s/p royal Metabolic acidosis Anemia renal function is improved but not normalized cr 4 Sodium bicarb IVP now, add po daily to home regime s/p PRBC hb improved , rec oral iron outpatient no phos binder needed Urology to placed Royal catheter in OR after cystoscopy which will remain as per urology recs. Strict Is&Os No emergent indication for hemodialysis at this time we will monitor fluid balance and electrolytes closely. outpatient renal f/u Plan discussed with: Patient My Orders My Orders Orders - BRETT SLADE MD Procedure Category Date Status Time Basic Metabolic Panel LAB 08/21/24 In Process 08:53 Dietary Evaluation Review Comments: Ensure Clear BID, commondate his personal preference, Renal Standard diet if he is on dialysis Expected Outcomes/Goals: prevent uremic symptoms BRETT SLADE MD August 21, 2024 10:24
[2024-08-21] MEDS: SODIUM BICARBONATE 650 MG TAB PO SCH (10:30)
[2024-08-21] MEDS: SODIUM BICARB 8.4% 50Meq/50ml SYR Vial IV ONE (10:30)
== END 2024-08-21 12:55 | DRG 725 ==
LOC: EDBD 11:57 → ER 12:06 → OVERFLOW 16:18 → TELE-EAST 08-18 17:11
PROVIDERS: ADMIT Hospitalist; ATTEND Hospitalist
PROC: 0T9B80Z Drainage of Bladder with Drainage Device, Via Natural or Artificial Opening Endoscopic (ICD-10-PCS; 2024-08-18)
PROC: 0WHR8YZ Insertion of Other Device into Genitourinary Tract, Via Natural or Artificial Opening Endoscopic (ICD-10-PCS; principal; 2024-08-18 15:29)
PROC: 30233N1 Transfusion of Nonautologous Red Blood Cells into Peripheral Vein, Percutaneous Approach (ICD-10-PCS; 2024-08-19)
DX: N40.1 Benign prostatic hyperplasia with lower urinary tract symptoms (principal); G93.41 Metabolic encephalopathy; N17.0 Acute kidney failure with tubular necrosis; N18.6 End stage renal disease; S37.39XA Other injury of urethra, initial encounter; I12.0 Hypertensive chronic kidney disease with stage 5 chronic kidney disease or end stage renal disease; N13.8 Other obstructive and reflux uropathy; E87.20 Acidosis, unspecified; E86.0 Dehydration; E78.5 Hyperlipidemia, unspecified; E87.5 Hyperkalemia; M10.9 Gout, unspecified; C61 Malignant neoplasm of prostate; Z20.822 Contact with and (suspected) exposure to COVID-19; E83.39 Other disorders of phosphorus metabolism; D63.1 Anemia in chronic kidney disease; N35.819 Other urethral stricture, male, unspecified site; K59.00 Constipation, unspecified; E11.22 Type 2 diabetes mellitus with diabetic chronic kidney disease; X58.XXXA Exposure to other specified factors, initial encounter; R31.0 Gross hematuria; Z85.46 Personal history of malignant neoplasm of prostate; Z92.3 Personal history of irradiation; Z99.2 Dependence on renal dialysis; Y93.89 Activity, other specified; Y92.89 Other specified places as the place of occurrence of the external cause; Y99.8 Other external cause status
CPT/HCPCS: 36415; 36600; 71045; 76775; 80048; 80053; 81001; 82550; 82570; 82805; 82962; 83605; 84100; 84300; 84484; 85025; 86850; 86900; 86901; 86920; 87040; 87086; 87426; 93005; 94640; 96361; 96365; 96375; 97110; 97116; 97163; 97530; 99291; A4344; G0378; J1815; J2250; J2405; J2704

== ENCOUNTER 2025-02-01 10:30 | Inpatient (IN) | payer BC, MEDICARE ==
[~2025-02-01] VITALS: Ht 162.6 cm; Wt 87.5 kg
[~2025-02-01 10:30] MED LIST: AMLO1TAB22 PO; FURO40TA4 PO; HYDR25TA88 PO; LISI40TA16 PO; LOVA40TA72 PO; MULT-1018 PO; OMEG-20 PO; TRAZ-227 PO; [UNRECOGNIZED DRUG - CODE] PO
[2025-02-01 12:25] LABS: Hematocrit 26.0 % (41.0-53.0); Hemoglobin 8.7 g/dL (13.5-17.5); Mean Corpuscular Hemoglobin 31.8 pg (28.0-32.0); Mean Corpuscular Volume 95.2 fL (80.0-100.0); Nucleated Red Blood Cells % 0.0 %
--- NOTE | 2025-02-01 12:32 | DVH ---
EXAM: XY CHEST XRAY 1 VIEW Indication: sob Technique: Single frontal view of the chest was obtained Comparison: XY CHEST PORTABLE on DOS: 08/17/24, CR CHEST 2 VIEW on DOS: 11/19/23 FINDINGS: Lines and Tubes: None Lungs: Small bilateral pleural effusions and basilar opacities. No pneumothorax. Cardiomediastinal contours: Cardiomegaly. Bones: No acute osseous abnormality. IMPRESSION: Small bilateral pleural effusions and basilar opacities. Cardiomegaly.
--- NOTE | 2025-02-01 12:32 | ED.PDOC ---
History of Present Illness HPI Comments Mr. Barroso is an 89-year-old male with prior medical history of hypertension, prostate cancer status post radiation therapy, insomnia gout, hyperlipidemia, and questionable ESRD, who presents today with chief complaint of bilateral lower extremity swelling and rash. He reports that for the last 2 weeks his l egs have become progressively more swollen with onset of red rash along the medial surfaces of bilateral calves and thighs, with warm to the touch. He denies pain, fever, nausea, vomiting, chest pain, shortness of breath,orthopnea, abdominal pain, recent trauma, changes in urine, hematuria, and palpitations. On initial evaluation, the patient walks with a walker with minor difficulty, vitals were stable, and he has no overt signs of distress. Chief Complaint: Lower Extremity Time Seen by MD: 10:36 Allergies: Coded Allergies: NO KNOWN ALLERGIES (Unverified , 08/17/24) Home Meds Reported Medications Misc Natural Products (Elderberry/Vitamin C/Zinc) 1 Chw Chw, 1 CHW PO, TAB.CHEW 08/19/24 Brea-3 Fatty Acids (FISH OIL) 1,000 Mg Cap, 1200 MG PO, CAP 08/19/24 Trazodone Hcl (Trazodone Hcl) 50 Mg Tab, 50 MG PO PRN for FOR INSOMNIA, MG 08/19/24 Multiple Vitamin (Multivitamins) Tab, 1 TAB PO DAILY, #30 TAB 2 Refills 08/19/24 Amlodipine Besylate (Amlodipine Besylate) 5 Mg Tab, 10 MG PO DAILY for 30 Days, MG 08/19/24 Furosemide (Furosemide) 40 Mg Tab, 40 MG PO DAILY for 30 Days 08/19/24 Hydralazine Hcl (Hydralazine Hcl) 25 Mg Tab, 25 MG PO BID for 30 Days, MG 08/19/24 Lisinopril (Lisinopril) 40 Mg Tab, 40 MG PO DAILY for 30 Days, MG 08/19/24 Lovastatin (Lovastatin) 40 Mg Tab, 40 MG PO HS, TAB 08/19/24 Information Source: Patient, Relative (Child) Mode of Arrival: Ambulatory Severity: Mild Timing: Weeks Duration: Since onset Past Medical History PAST MEDICAL HISTORY: Gout, High Lipids, HTN Past Medical History (Other): Questionable ESRD Surgical History: Denies all surgeries Family History Family History: Family hx of Cancer, Family hx of heart jody Social History Smoker: Non-Smoker Alcohol: Denies ETOH Use Drugs: Denies Drug Use Lives In: Home Constitutional: denies: chills, diaphoresis, fatigue, fever, malaise, sweats, weakness EENTM: denies: blurred vision, double vision, nasal discharge, nose congestion Respiratory: reports: SOB at rest; denies: cough, hemoptysis, orthopnea, shortness of breath Cardiovascular: reports: edema; denies: chest pain, dizzy spells, diaphoresis, Dyspnea on exertion, irregular heart beat, left arm pain, lightheadedness, palpitations Gastrointestinal: denies: abdomen distended, abdominal pain, blood streaked bowels, constipated, diarrhea, dysphagia, difficulty swallowing, hematemesis, melena, nausea, poor appetite, poor fluid intake, rectal bleeding Genitourinary: reports: testicle swelling; denies: burning, dysuria, flank pain, frequency, hematuria, incontinence, pain, testicle pain, urgency Neurological: denies: dizziness, fainting, headache, numbness, paresthesia, pre-existing deficit, seizure, weakness Musculoskeletal: denies: back pain, gout, joint pain, joint swelling, muscle pain, muscle stiffness, neck pain Integumetry: reports: rash; denies: bruises, laceration, lesions, lumps, wounds Physical Exam General Appearance: Normal HEENT: Normal ENT Inspection, PERRL/EOMI, Pharynx Normal Neck: Full Range of Motion, Non-Tender, Normal Inspection Respiratory: Other (Bilateral chest expansion, no chest wall tenderness on palpation, vesicular murmurs present in almost all lung mendez, crackles present in bilateral lower lung mendez) Cardiovascular: No Edema, No Murmur, Normal Peripheral Pulses, Regular Rate/Rhythm Breast Exam: Deferred Gastrointestinal: Non Tender, No Pulsatile Mass, Normal Bowel Sounds, Soft Genitalia: Other (The patient gave consent for testicular examination, I examined this region under the supervision of Guille Coats RN. On evaluation, scrotum is edematous, no painful on palpation ) Pelvic: Deferred Rectal: Deferred Extremities: Other (Presence of bilateral lower extremity pitting edema +3 reaching up to his testicles, presence of a erythematous rash on medial surface of bilateral legs, more pronounced in the calves, warm to the touch, non-painful on palpation) Neurologic: Alert, Normal Affect, Normal Mood Cerebellar Function: NOT DONE Reflexes: NOT DONE Skin: Other (As above ) Lymphatic: Other (No cervical adenopathy ) Was a procedure done? Was a procedure done?: No Differential Dx Considerations may include: Anasarca, CHF exacerbation, ESRD, Nephrotic syndrome X-Ray, Labs, Meds, VS Vital Signs Date Time Temp Pulse Resp B/P (MAP) Pulse Ox O2 Delivery O2 Flow Rate FiO2 02/01/25 13:05 97.8 100 18 143/87 (105) 96 97.8 02/01/25 12:45 143/87 02/01/25 10:35 97.8 108 20 143/87 96 97.8 Lab Test 02/01/25 11:49 Range/Units White Blood Count 7.3 4.4-10.8 10^3/uL Red Blood Count 2.73 L 4.5-5.90 10^6/uL Hemoglobin 8.7 L 13.5-17.5 g/dL Hematocrit 26.0 L 41.0-53.0 % Mean Corpuscular Volume 95.2 80.0-100.0 fL Mean Corpuscular Hemoglobin 31.8 28.0-32.0 pg Mean Corpuscular Hemoglobin Concent 33.4 32.0-36.0 g/dL Red Cell Distribution Width 16.3 H 11.8-14.3 % Platelet Count 172 140-450 10^3/uL Mean Platelet Volume 11.0 H 6.9-10.8 fL Neutrophils (%) (Auto) 88.2 H 37.0-80.0 % Lymphocytes (%) (Auto) 4.6 L 10.0-50.0 % Monocytes (%) (Auto) 5.9 0.0-12.0 % Eosinophils (%) (Auto) 1.0 0.0-7.0 % Basophils (%) (Auto) 0.3 0.0-2.0 % Neutrophils # (Auto) 6.4 1.6-8.6 10 ^3/uL Lymphocytes # (Auto) 0.3 L 0.4-5.4 10 ^3/uL Monocytes # (Auto) 0.4 0-1.3 10 ^3/uL Eosinophils # (Auto) 0.1 0-0.8 10 ^3/uL Basophils # (Auto) 0 0-0.2 10 ^3/uL Nucleated Red Blood Cells 0.0 % Sodium Level 144 136-145 mmol/L Potassium Level 3.6 3.5-5.1 mmol/L Chloride Level 104 98-107 mmol/L Carbon Dioxide Level 27 20-31 mmol/L Anion Gap 13 5-15 Blood Urea Nitrogen 48 H 9-23 mg/dL Creatinine 3.40 H 0.700-1.30 mg/dL Glomerular Filtration Rate Calc 17 >90 mL/min BUN/Creatinine Ratio 14.1 10.0-20.0 Serum Glucose 96 74-106 mg/dL Calcium Level 8.8 8.7-10.4 mg/dL Total Bilirubin 0.8 0.2-1.0 mg/dL Aspartate Amino Transferase (AST) 34 13-40 U/L Alanine Aminotransferase (ALT) 24 7-40 U/L Alkaline Phosphatase 165 H 46-116 U/L B-Type Natriuretic Peptide 2031.72 0-100 pg/mL Total Protein 6.5 5.7-8.2 g/dL Albumin 3.7 3.2-4.8 g/dL Current Medications Medications (Trade) Dose Ordered Sig/Mukesh Route Start Time Stop Time Status Last Admin Furosemide (Lasix Injection) 40 mg ONCE ONCE IV 02/01/25 12:45 02/01/25 12:59 DC 02/01/25 12:45 Time of 1ST Reevaluation: 14:00 Reevaluation 1ST: Unchanged Patient Education/Counseling: Diagnosis, Treatment Family Education/Counseling: No Family Present Comments The patient presents due to chief complaint of bilateral lower extremity swelling On initial evaluation, he seems well, is able to ambulate with the aid of his walker, with significant swelling of bilateral lower extremities, vitals are stable Physical exam is significant for bilateral lower extremity pitting edema +4 spanning from feet and towards scrotum, scrotal swelling is present, there is no pain on palpation of scrotum. Presence erythematous rash on medial aspect of bilateral lower extremities, worse on medial aspect of calves, warm to the touch, not painful on palpation. CBC normocytic anemia and neutrophilia, CMP signficant for creatinine of 3.40 and BUN 48, BNP is 2031.72 Chest xray significant for bilateral pleural effusions Patient was started on Furosemide 40 mg IV He will be admitted for further work up and management. SEPSIS Sepsis Screen Date sepsis recognized/suspect: Feb 01, 2025 Time Sepsis recognized/suspect: 1039 Recent Procedure: No On Antibiotic Therapy: No Respiratory Rate >20: No Heart Rate >90: No Temp<36 C (96.8 F) or >38.3 C: No SBP <90 or MAP <65 mmHG: No New Acute Mental Status Change: No Is the patient on CPAP, BIPAP,: No Physician Orders Urinalysis (02/01/25 11:35) Chest Xray 1 View (02/01/25 11:48) Electrocardigram (02/01/25 11:48) Vital Signs Date Time Temp Pulse Resp B/P (MAP) Pulse Ox O2 Delivery O2 Flow Rate FiO2 02/01/25 13:05 97.8 100 18 143/87 (105) 96 97.8 02/01/25 12:45 143/87 02/01/25 10:35 97.8 108 20 143/87 96 97.8 Laboratory Tests Test 02/01/25 11:49 White Blood Count 7.3 10^3/uL (4.4-10.8) Medications Medications Dose Ordered Sig/Mukesh Route Start Time Stop Time Status Last Admin Dose Admin Furosemide 40 mg ONCE ONCE IV 02/01/25 12:45 02/01/25 12:59 DC 02/01/25 12:45 Departure 1 Departure Time of Disposition: 15:00 Impression: Primary Impression: Acute exacerbation of CHF (congestive heart failure) Disposition: 30 STILL A PATIENT Admit to: Tele Condition: Stable Critical Care Note Critical Care Time?: No Stability Stability form required: JAZZY Hernandez RESIDENT Feb 01, 2025 12:32
[2025-02-01 12:39] LABS: Alanine Aminotransferase 24 U/L (7-40); Albumin 3.7 g/dL (3.2-4.8); Anion Gap 13 (5-15); BUN/Creatinine Ratio 14.1 (10.0-20.0); Bilirubin, Total 0.8 mg/dL (0.2-1.0); Calcium 8.8 mg/dL (8.7-10.4); Carbon Dioxide 27 mmol/L (20-31); Chloride 104 mmol/L (98-107); Glucose 96 mg/dL (74-106); Potassium 3.6 mmol/L (3.5-5.1); Sodium 144 mmol/L (136-145); Total Protein 6.5 g/dL (5.7-8.2)
[2025-02-01 12:41] LABS: Alkaline Phosphatase 165 U/L (46-116); Blood Urea Nitrogen 48 mg/dL (9-23)
[2025-02-01] MEDS: FUROSEMIDE 40 MG/4 ML VIAL IV ONE (12:45)
[2025-02-01] MEDS ORDERED: ACETAMINOPHEN 325 MG TAB PO PRN (15:15)
[2025-02-01] MEDS ORDERED: ONDANSETRON HCL 4 MG/2 ML VIAL IV PRN (15:15)
[2025-02-01] MEDS ORDERED: HYDROcodone-ACET 5/325MG TAB PO PRN (15:15)
[2025-02-01] MEDS ORDERED: MORPHINE SULFATE INJ 2 MG/ml SYRG IV PRN (15:15)
[2025-02-01] MEDS ORDERED: NITROGLYCERIN 0.4 MG SL TAB SL PRN (15:15)
[2025-02-01] MEDS ORDERED: DOCUSATE SOD 100 MG CAP PO PRN (15:15)
--- NOTE | 2025-02-01 15:41 | DVHHP2 ---
History of Present Illness Reason for Visit: Bilateral leg swelling worsening for last 1-2 weeks History of Present Illness 89-year-old male with a known history of hypertension, dyslipidemia, history of gout, chronic insomnia, history of prostate cancer status post radiation therapy presented to the hospital with a bilateral leg swelling worsening for last two weeks. Patient denies any shortness of breaths denies any fevers chills denies any cough or phlegm. Also complaining of some redness in the bilateral lower extremities. Patient was recommended to be admitted for possible acute CHF exacerbation. Patient currently denies any chest pain shortness of breaths. Patient is complaining of bilateral leg swelling as well as scrotal swelling. Cardiovascular: HTN, hyperipidemia Psych: Other (Insomnia.) Rheumatologic: Gout Past Surgical History: None Family History: None Drugs: None Review of Systems Review of Systems Twelve review of system are negative besides mentioned above. Allergies: Coded Allergies: NO KNOWN ALLERGIES (Unverified , 08/17/24) Medications Current Medications Medications Dose Ordered Sig/Mukesh Route Start Time Stop Time Status Last Admin Dose Admin Acetaminophen/ Hydrocodone Bitart 1 tab Q4HP PRN PO 02/01/25 15:15 Ondansetron HCl 4 mg Q4HP PRN IV 02/01/25 15:15 Docusate Sodium 100 mg BIDPRN PRN PO 02/01/25 15:15 Enoxaparin Sodium 40 mg DAILY SC 02/02/25 10:00 UNV Acetaminophen 650 mg Q6HP PRN PO 02/01/25 15:15 Nitroglycerin 0.4 mg Q5MINP PRN SL 02/01/25 15:15 Morphine Sulfate 2 mg Q30M PRN IV 02/01/25 15:15 Amlodipine Besylate 10 mg DAILY PO 02/02/25 10:00 Hydralazine HCl 25 mg BID PO 02/01/25 22:00 Trazodone HCl 50 mg QHSP PRN PO 02/01/25 15:30 Heparin Sodium (Porcine) 5,000 units Q12HR SC 02/01/25 22:00 Exam Vital Signs Vital Signs Date Time Temp Pulse Resp B/P (MAP) Pulse Ox O2 Delivery O2 Flow Rate FiO2 02/01/25 13:05 97.8 100 18 143/87 (105) 96 97.8 Exam HEENT pupils are reactive Neck is supple CV is S1-S2 regular rate and rhythm Diminished breath sounds bilateral lung bases GI positive bowel sound Extremity three to 4+ pitting edema SWEDGER no motor deficit Labs/Xrays Labs Test 02/01/25 11:49 Range/Units White Blood Count 7.3 4.4-10.8 10^3/uL Red Blood Count 2.73 L 4.5-5.90 10^6/uL Hemoglobin 8.7 L 13.5-17.5 g/dL Hematocrit 26.0 L 41.0-53.0 % Mean Corpuscular Volume 95.2 80.0-100.0 fL Mean Corpuscular Hemoglobin 31.8 28.0-32.0 pg Mean Corpuscular Hemoglobin Concent 33.4 32.0-36.0 g/dL Red Cell Distribution Width 16.3 H 11.8-14.3 % Platelet Count 172 140-450 10^3/uL Mean Platelet Volume 11.0 H 6.9-10.8 fL Neutrophils (%) (Auto) 88.2 H 37.0-80.0 % Lymphocytes (%) (Auto) 4.6 L 10.0-50.0 % Monocytes (%) (Auto) 5.9 0.0-12.0 % Eosinophils (%) (Auto) 1.0 0.0-7.0 % Basophils (%) (Auto) 0.3 0.0-2.0 % Neutrophils # (Auto) 6.4 1.6-8.6 10 ^3/uL Lymphocytes # (Auto) 0.3 L 0.4-5.4 10 ^3/uL Monocytes # (Auto) 0.4 0-1.3 10 ^3/uL Eosinophils # (Auto) 0.1 0-0.8 10 ^3/uL Basophils # (Auto) 0 0-0.2 10 ^3/uL Nucleated Red Blood Cells 0.0 % Sodium Level 144 136-145 mmol/L Potassium Level 3.6 3.5-5.1 mmol/L Chloride Level 104 98-107 mmol/L Carbon Dioxide Level 27 20-31 mmol/L Anion Gap 13 5-15 Blood Urea Nitrogen 48 H 9-23 mg/dL Creatinine 3.40 H 0.700-1.30 mg/dL Glomerular Filtration Rate Calc 17 >90 mL/min BUN/Creatinine Ratio 14.1 10.0-20.0 Serum Glucose 96 74-106 mg/dL Calcium Level 8.8 8.7-10.4 mg/dL Total Bilirubin 0.8 0.2-1.0 mg/dL Aspartate Amino Transferase (AST) 34 13-40 U/L Alanine Aminotransferase (ALT) 24 7-40 U/L Alkaline Phosphatase 165 H 46-116 U/L B-Type Natriuretic Peptide 2031.72 0-100 pg/mL Total Protein 6.5 5.7-8.2 g/dL Albumin 3.7 3.2-4.8 g/dL SEPSIS Sepsis Screen Date sepsis recognized/suspect: Feb 01, 2025 Time Sepsis recognized/suspect: 103 Recent Procedure: No On Antibiotic Therapy: No Respiratory Rate >20: No Heart Rate >90: No Temp<36 C (96.8 F) or >38.3 C: No SBP <90 or MAP <65 mmHG: No New Acute Mental Status Change: No Is the patient on CPAP, BIPAP,: No Physician Orders Urinalysis (02/01/25 11:35) Chest Xray 1 View (02/01/25 11:48) Electrocardigram (02/01/25 11:48) Admit (02/01/25 15:12) Code Status (02/01/25 15:12) 2 Gm Sodium Diet (02/01/25 Dinner) Hydrocodone-Acet 5/325mg Tab ([place] (02/01/25 15:15) Ondansetron Hcl (Zofran) (02/01/25 15:15) Docusate Sodium Capsule (Colace Capsule) (02/01/25 15:15) Pt Request For Service (02/01/25 15:12) Echo 2d Mode Cardiac Dop (02/01/25 15:12) Condition: Fair (02/01/25 15:12) Acetaminophen Tablet (Tylenol Tablet) (02/01/25 15:15) Nitroglycerin Sublingual (Ntrostat Subli (02/01/25 15:15) Morphine Sulfate Injection (02/01/25 15:15) Stat Ekg For Chest Pain (02/01/25 15:12) Notify Md Of Changes From Base (02/01/25 15:12) Story Reader For 24 Hours (02/01/25 15:12) Emergency Dysrhythmia Protocol (02/01/25 15:12) Rhythm Strips Once Every Shift (02/01/25 15:12) Oxygen By Nasal Cannula (02/01/25 15:12) Amlodipine Tablet (Norvasc Tablet) (02/02/25 10:00) Hydralazine Hcl Tablet (Apresoline Table (02/01/25 22:00) Trazodone Hcl (Desyrel) (02/01/25 15:30) Heparin Sodium (Porcine) (02/01/25 22:00) Clarification Of Order: (02/01/25 15:24) Furosemide Injection (Lasix Injection) (02/01/25 15:30) * Cardiology Consult (02/01/25 15:20) *Dr. Pino [facility] (02/01/25 15:32) Vital Signs Date Time Temp Pulse Resp B/P (MAP) Pulse Ox O2 Delivery O2 Flow Rate FiO2 02/01/25 13:05 97.8 100 18 143/87 (105) 96 97.8 02/01/25 12:45 143/87 02/01/25 10:35 97.8 108 20 143/87 96 97.8 Laboratory Tests Test 02/01/25 11:49 White Blood Count 7.3 10^3/uL (4.4-10.8) Medications Medications Dose Ordered Sig/Mukesh Route Start Time Stop Time Status Last Admin Dose Admin Furosemide 40 mg ONCE ONCE IV 02/01/25 12:45 02/01/25 12:59 DC 02/01/25 12:45 40 MG Assessment/Plan Assessment/Plan 89-year-old male with a known history of hypertension, dyslipidemia, gout, dry can tender monse insomnia who initially presented to the hospital with a bilateral leg swelling and scrotal swelling found to have 1. Bilateral leg swelling and scrotal swelling secondary to acute CHF exacerbation and CKD 2. Acute CHF exacerbation unspecified 3. 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 Hypertensive heart disease 5. Hypertension 6. Dyslipidemia 7. Gout 8. Chronic insomnia -admit to telemetry, IV diuretics, 2D echo cardiology consultation nephrology sedation. Plan discussed with: Patient My Orders Orders - MADAN ANDERSON MD Procedure Category Date Status Time Admit ADMIT 02/01/25 Transmitted 15:12 Code Status CODE 02/01/25 Transmitted 15:12 2 Gm Sodium Diet DIET 02/01/25 Transmitted Dinner Hydrocodone-Acet PHA 02/01/25 In Process 5/325mg Tab ([place] 15:15 Ondansetron Hcl PHA 02/01/25 In Process (Zofran) 15:15 Docusate Sodium PHA 02/01/25 In Process Capsule (Colace 15:15 Pt Request For Service PT 02/01/25 Logged 15:12 Echo 2d Mode Cardiac US 02/01/25 Logged DOP 15:12 Condition: Fair [place] 02/01/25 In Process 15:12 Acetaminophen Tablet PHA 02/01/25 In Process (Tylenol Tablet) 15:15 Nitroglycerin PHA 02/01/25 In Process Sublingual (Ntrostat 15:15 Morphine Sulfate PHA 02/01/25 In Process Injection 15:15 Stat Ekg For Chest [facility] 02/01/25 In Process Pain 15:12 Notify Md Of Changes [facility] 02/01/25 In Process From Base 15:12 Story Reader For [facility] 02/01/25 In Process 24 Hours 15:12 Emergency Dysrhythmia [facility] 02/01/25 In Process Protocol 15:12 Rhythm Strips Once [facility] 02/01/25 In Process Every Shift 15:12 Oxygen By Nasal RT 02/01/25 Transmitted Cannula 15:12 Amlodipine Tablet PHA 02/02/25 In Process (Norvasc Tablet) 10:00 Hydralazine Hcl PHA 02/01/25 In Process Tablet (Apresoline 22:00 Trazodone Hcl PHA 02/01/25 In Process (Desyrel) 15:30 Heparin Sodium PHA 02/01/25 In Process (Porcine) 22:00 Clarification Of ORDERS 02/01/25 Transmitted Order: 15:24 Furosemide Injection PHA 02/01/25 Logged (Lasix Injection) 15:30 * Cardiology Consult CONS 02/01/25 Transmitted 15:20 *Dr. [facility] CONS 02/01/25 Transmitted -[place] 15:32 Date of Service: Feb 01, 2025 Billing Provider: MADAN ANDERSON MD Common Visit Codes: NOT BILLABLE MADAN ANDERSON MD Feb 01, 2025 15:41
[2025-02-01 17:20] VITALS: PULSE 69; RESP 18; O2SAT 95
[2025-02-01] MEDS: FUROSEMIDE 40 MG/4 ML VIAL IV SCH (18:21)
[2025-02-01] MEDS: HEPARIN SODIUM (PORCINE) 5000 UNITS/ML 1ML VIAL SC SCH (22:09)
[2025-02-01 23:07] VITALS: BP 141/93; PULSE 80; RESP 22; TEMP 97.6; O2SAT 93
[2025-02-01 23:39] VITALS: PULSE 80; RESP 22
[2025-02-02] VITALS (8 sets, daily range): BP systolic 113–152; BP diastolic 68–85; PULSE 54–124; RESP 16–24; TEMP 97.6–99.1; O2SAT 92–98
[2025-02-02] MEDS ORDERED: ENOXAPARIN SOD 40 MG/0.4 ML SYRINGE SC SCH (10:00)
--- NOTE | 2025-02-02 11:12 | DVH ---
Technique: Real-time ultrasound imaging, with color Doppler and compression of the bilateral common femoral vein, femoral vein, greater saphenous vein, and popliteal vein. Indication: leg edema, bilateral Comparison: None Findings: There is normal compressibility and flow augmentation in all of the imaged deep veins. There are no filling defects. There is bilateral lower extremity soft tissue edema. Impression: No evidence of DVT in the bilateral lower extremity
[2025-02-02 12:10] LABS: Hematocrit 25.1 % (41.0-53.0); Hemoglobin 8.3 g/dL (13.5-17.5); Mean Corpuscular Hemoglobin 31.6 pg (28.0-32.0); Mean Corpuscular Volume 95.5 fL (80.0-100.0); Nucleated Red Blood Cells % 0.0 %
[2025-02-02 12:30] LABS: Alanine Aminotransferase 22 U/L (7-40); Albumin 3.4 g/dL (3.2-4.8); Anion Gap 11 (5-15); BUN/Creatinine Ratio 14.6 (10.0-20.0); Carbon Dioxide 27 mmol/L (20-31); Chloride 106 mmol/L (98-107); Potassium 3.8 mmol/L (3.5-5.1); Sodium 144 mmol/L (136-145); Total Protein 6.0 g/dL (5.7-8.2)
[2025-02-02 12:31] LABS: Bilirubin, Total 0.6 mg/dL (0.2-1.0)
[2025-02-02 12:33] LABS: Alkaline Phosphatase 148 U/L (46-116); Blood Urea Nitrogen 47 mg/dL (9-23); Calcium 8.7 mg/dL (8.7-10.4); Glucose 120 mg/dL (74-106)
--- NOTE | 2025-02-02 12:46 | DVH ---
INDICATION: CKD TECHNIQUE: Multiple real-time sonographic images of the kidneys and bladder were obtained. COMPARISON: US KIDNEY on DOS: 08/17/24 FINDINGS: The right kidney measures 9 cm in length, which is normal in size. There is normal echogenicity of the right kidney. No hydronephrosis. 1 cm right renal cyst. The left kidney measures 8 cm in length, which is normal in size. There is normal echogenicity of the left kidney. No hydronephrosis. IMPRESSION: 1. Normal sonographic appearance of the kidneys. No hydronephrosis. 2. Small bilateral pleural effusions with trace ascites.
--- NOTE | 2025-02-02 13:39 | DVHINCON2 ---
Date Seen: Feb 02, [address] Mehta History of Present Illness This is an 89-year-old male with past medical history of prostate cancer sp radiotherapy, hypertension, hyperlipidemia, and gout, who presented with two weeks of progressive swelling in both lower extremities. The swelling began around the ankles and gradually extended to involve the thighs, scrotum, and lower abdomen. The patient denies chest pain, dyspnea, orthopnea, or paroxysmal nocturnal dyspnea. He also reports erythematous discoloration over both lower extremities associated with the edema but denies fever, chills, or trauma. No decrease in urine output or dysuria. No recent medication changes except ongoing radiation therapy. The progressive swelling and discomfort prompted him to come to the hospital. Past Medical History: Prostate cancer sp radiotherapy Hypertension Hyperlipidemia Gout Social History Smoker: Non-Smoker Alcohol: Denies ETOH Use Drugs: Denies Drug Use Lives In: Home Family History: Hypertension G8 MOTHER Allergies: Coded Allergies: NO KNOWN ALLERGIES (Unverified , 08/17/24) Home Meds Reported Medications Misc Natural Products (Elderberry/Vitamin C/Zinc) 1 Chw Chw, 1 CHW PO, TAB.CHEW 08/19/24 [place]-3 Fatty Acids (FISH OIL) 1,000 Mg Cap, 1200 MG PO, CAP 08/19/24 Trazodone Hcl (Trazodone Hcl) 50 Mg Tab, 50 MG PO PRN for FOR INSOMNIA, MG 08/19/24 Multiple Vitamin (Multivitamins) Tab, 1 TAB PO DAILY, #30 TAB 2 Refills 08/19/24 Amlodipine Besylate (Amlodipine Besylate) 5 Mg Tab, 10 MG PO DAILY for 30 Days, MG 08/19/24 Furosemide (Furosemide) 40 Mg Tab, 40 MG PO DAILY for 30 Days 08/19/24 Hydralazine Hcl (Hydralazine Hcl) 25 Mg Tab, 25 MG PO BID for 30 Days, MG 08/19/24 Lisinopril (Lisinopril) 40 Mg Tab, 40 MG PO DAILY for 30 Days, MG 08/19/24 Lovastatin (Lovastatin) 40 Mg Tab, 40 MG PO HS, TAB 08/19/24 Current Medications Current Medications Medications (Trade) Dose Ordered Sig/Mukesh Route PRN Reason Start Time Stop Time Status Last Admin Acetaminophen/ Hydrocodone Bitart ([place] 5/325MG Tab) 1 tab Q4HP PRN PO MODERATE PAIN (4-6 PAIN SCALE) 02/01/25 15:15 Ondansetron HCl (Zofran) 4 mg Q4HP PRN IV NAUSEA / VOMITING 02/01/25 15:15 Docusate Sodium (Colace Capsule) 100 mg BIDPRN PRN PO FOR CONSTIPATION 02/01/25 15:15 Enoxaparin Sodium (Lovenox) 40 mg DAILY SC 02/02/25 10:00 UNV Acetaminophen (Tylenol Tablet) 650 mg Q6HP PRN PO PAIN SCALE 1-3 OR TEMP>100.4 02/01/25 15:15 Nitroglycerin (Ntrostat Sublingual) 0.4 mg Q5MINP PRN SL FOR CHEST PAIN 02/01/25 15:15 Morphine Sulfate 2 mg Q30M PRN IV FOR CHEST PAIN 02/01/25 15:15 Amlodipine Besylate (Norvasc Tablet) 10 mg DAILY PO 02/02/25 10:00 02/02/25 12:56 DC 02/02/25 09:10 Hydralazine HCl (Apresoline Tablet) 25 mg BID PO 02/01/25 22:00 02/02/25 09:10 Trazodone HCl (Desyrel) 50 mg QHSP PRN PO FOR INSOMNIA 02/01/25 15:30 02/02/25 00:07 Heparin Sodium (Porcine) 5,000 units Q12HR SC 02/01/25 22:00 02/02/25 09:11 Furosemide (Lasix Injection) 40 mg BIDD IV 02/01/25 18:00 02/02/25 06:34 Carvedilol (Coreg Tablet) 3.125 mg Q12HR PO 02/02/25 22:00 Review of Systems Review of Systems: General: No fever, chills, or weight loss. Cardiac: No chest pain or palpitations. Respiratory: No shortness of breath or orthopnea. GI: No nausea, vomiting, or abdominal pain. : Reports scrotal swelling; denies dysuria or hematuria. Skin: Reports redness and rash on both lower legs. Neuro: No focal deficits, dizziness, or syncope. Vital Signs Vital Signs Date Time Temp Pulse Resp B/P (MAP) Pulse Ox O2 Delivery O2 Flow Rate FiO2 02/02/25 13:00 97.7 67 17 130/71 (90) 94 97.7 02/02/25 08:00 Room Air* 0 21 Physical Exam General: Elderly male, alert and oriented, in no acute distress. HEENT: No JVD, mucous membranes moist. Cardiac: Regular rate and rhythm, no murmurs, rubs, or gallops. Lungs: Mild bibasilar crackles, no wheezing. Abdomen: Soft, mildly distended from edema, non-tender. No ascites. Extremities: 2+ pitting edema up to abdomen, scrotal swelling present. Erythematous rash over lower legs, warm to touch, mildly tender, no drainage. Neuro: Grossly intact. Laboratory Data: CBC: Normocytic anemia, WBC normal with relative neutrophilia. CMP: Creatinine 3.4 --> 3.1 mg/dL, elevated BUN 48 . BNP: 2000 pg/mL. CRP: Pending. LFTs: Within normal limits, AP mildly elevated TSH 6.34 pending t3 and t4 Labs/Diagnostic Data Labs Test 02/02/25 11:42 02/01/25 11:49 Range/Units White Blood Count 7.8 4.4-10.8 10^3/uL Red Blood Count 2.62 L 4.5-5.90 10^6/uL Hemoglobin 8.3 L 13.5-17.5 g/dL Hematocrit 25.1 L 41.0-53.0 % Mean Corpuscular Volume 95.5 80.0-100.0 fL Mean Corpuscular Hemoglobin 31.6 28.0-32.0 pg Mean Corpuscular Hemoglobin Concent 33.1 32.0-36.0 g/dL Red Cell Distribution Width 16.4 H 11.8-14.3 % Platelet Count 163 140-450 10^3/uL Mean Platelet Volume 11.1 H 6.9-10.8 fL Neutrophils (%) (Auto) 90.9 H 37.0-80.0 % Lymphocytes (%) (Auto) 2.7 L 10.0-50.0 % Monocytes (%) (Auto) 4.5 0.0-12.0 % Eosinophils (%) (Auto) 1.4 0.0-7.0 % Basophils (%) (Auto) 0.5 0.0-2.0 % Neutrophils # (Auto) 7.1 1.6-8.6 10 ^3/uL Lymphocytes # (Auto) 0.2 L 0.4-5.4 10 ^3/uL Monocytes # (Auto) 0.3 0-1.3 10 ^3/uL Eosinophils # (Auto) 0.1 0-0.8 10 ^3/uL Basophils # (Auto) 0 0-0.2 10 ^3/uL Nucleated Red Blood Cells 0.0 % Sodium Level 144 136-145 mmol/L Potassium Level 3.8 3.5-5.1 mmol/L Chloride Level 106 98-107 mmol/L Carbon Dioxide Level 27 20-31 mmol/L Anion Gap 11 5-15 Blood Urea Nitrogen 47 H 9-23 mg/dL Creatinine 3.21 H 0.700-1.30 mg/dL Glomerular Filtration Rate Calc 18 >90 mL/min BUN/Creatinine Ratio 14.6 10.0-20.0 Serum Glucose 120 H 74-106 mg/dL Hemoglobin A1c 5.3 <5.7 % A1C Calcium Level 8.7 8.7-10.4 mg/dL Total Bilirubin 0.6 0.2-1.0 mg/dL Aspartate Amino Transferase (AST) 34 13-40 U/L Alanine Aminotransferase (ALT) 22 7-40 U/L Alkaline Phosphatase 148 H 46-116 U/L Total Protein 6.0 5.7-8.2 g/dL Albumin 3.4 3.2-4.8 g/dL Thyroid Stimulating Hormone (TSH) 6.34 H 0.55-4.78 uIU/mL B-Type Natriuretic Peptide 2031.72 0-100 pg/mL Assessment Assessment: 89-year-old male with possible newly diagnosed systolic heart failure (EF 30%) in the prelim echo presenting with significant volume overload, acute kidney injury and marked bilateral lower extremity and scrotal edema. BNP elevated at 2000. Ultrasound negative for DVT. Also has mild erythematous changes on lower legs concerning for early cellulitis. sp radiotherapy for prostate cancer. Plan: Heart Failure: Discontinue amlodipine (may exacerbate edema). Start carvedilol (low dose) and hydralazine. Defer initiation of ACEi/ARB/ARNI and spironolactone until renal function improves. Strict I&O, daily weights, low-salt and fluid restriction.Pending official echo report Renal Function: Monitor renal parameters closely. Pending urine studies Avoid nephrotoxins and IV contrast. Ischemic Workup: Given elevated creatinine (3.13.4), coronary angiography is de ferred during this admission due to high risk for contrast-induced nephropathy and potential need for dialysis. The ischemic evaluation will be arranged as an outpatient once renal function stabilizes. Volume Management: Gentle diuresis as tolerated under nephrology guidance. Infection: Follow CRP and monitor lower extremity erythema. Start empiric antibiotics if cellulitis worsens or systemic signs appear. Prostate Cancer: Continue coordination with oncology as outpatient Case discussed with Dr Coleman, dairy management specialist Time spent on care 71 min Plan discussed with: Patient, Other (rn) NYHA Physical activity limitations: Class1(None)absent sob, Date of Service: Feb 02, 2025 Billing Provider: FENG COLEMAN Sr., MD Cardiology Common Codes: 72898-BFVLMAGE CARE 30-74 MIN DALILA THACKER RESIDENT Feb 02, 2025 13:39
[2025-02-02 14:24] LABS: Magnesium 2.5 mg/dL (1.6-2.6)
--- NOTE | 2025-02-02 14:38 | DVHPN2 ---
Subjective Overnight events noted. Patient's kidney function improved little bit better Changes from previous H/P or p: No Changes Objective Vitals Vital Signs Date Time Temp Pulse Resp B/P (MAP) Pulse Ox O2 Delivery O2 Flow Rate FiO2 02/02/25 13:00 97.7 67 17 130/71 (90) 94 97.7 02/02/25 08:00 Room Air* 0 21 Intake/Output Intake and Output 02/02/25 07:00 Intake Total 600 ml Output Total 250 ml Balance 350 ml Intake Oral 600 ml Output Urine Total 250 ml Exam HEENT pupils are reactive Neck is supple CV is S1-S2 regular rate and rhythm Respiratory diminished breath sounds bases GI positive bowel sound Extremity 3+ pitting edema with a early inflammation in the 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 Medications Current Medications Medications Dose Ordered Sig/[place] Route Start Time Stop Time Status Last Admin Dose Admin Acetaminophen/ Hydrocodone Bitart 1 tab Q4HP PRN PO 02/01/25 15:15 Ondansetron HCl 4 mg Q4HP PRN IV 02/01/25 15:15 Docusate Sodium 100 mg BIDPRN PRN PO 02/01/25 15:15 Enoxaparin Sodium 40 mg DAILY SC 02/02/25 10:00 UNV Acetaminophen 650 mg Q6HP PRN PO 02/01/25 15:15 Nitroglycerin 0.4 mg Q5MINP PRN SL 02/01/25 15:15 Morphine Sulfate 2 mg Q30M PRN IV 02/01/25 15:15 Hydralazine HCl 25 mg BID PO 02/01/25 22:00 02/02/25 09:10 25 MG Trazodone HCl 50 mg QHSP PRN PO 02/01/25 15:30 02/02/25 00:07 50 MG Heparin Sodium (Porcine) 5,000 units Q12HR SC 02/01/25 22:00 02/02/25 09:11 5,000 UNITS Furosemide 40 mg BIDD IV 02/01/25 18:00 02/02/25 06:34 40 MG Carvedilol 3.125 mg Q12HR PO 02/02/25 22:00 Laboratory Results Laboratory Tests 02/02/25 11:42 Chemistry Test 02/02/25 11:42 Albumin 3.4 g/dL (3.2-4.8) Calcium Level 8.7 mg/dL (8.7-10.4) Magnesium Level 2.5 mg/dL (1.6-2.6) Phosphorus Level 3.9 mg/dL (2.4-5.1) Total Protein 6.0 g/dL (5.7-8.2) LFT Test 02/02/25 11:42 Alanine Aminotransferase (ALT) 22 U/L (7-40) Alkaline Phosphatase 148 U/L (46-116) H Aspartate Amino Transferase (AST) 34 U/L (13-40) Total Bilirubin 0.6 mg/dL (0.2-1.0) HgA1c, TSH Test 02/02/25 11:42 Hemoglobin A1c 5.3 % A1C (<5.7) Thyroid Stimulating Hormone (TSH) 6.34 uIU/mL (0.55-4.78) H Assessment/Plan Assessment/Plan 89-year-old male with a known history of hypertension, dyslipidemia, gout, chronic insomnia who initially presented to the hospital with a bilateral leg swelling and scrotal swelling found to have 1. Bilateral leg swelling and scrotal swelling secondary to acute CHF exacerbation and CKD 2. Acute CHF exacerbation with a systolic 3. 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 Hypertensive heart disease 5. Hypertension 6. Dyslipidemia 7. Gout 8. Bilateral lower extremity cellulitis 9. Chronic insomnia -add IV antibiotics -IV diuretics, strict I&Os out continue current medications -. Plan discussed with: Patient My Orders Orders - MADAN ANDERSON MD Procedure Category Date Status Time Admit ADMIT 02/01/25 Transmitted 15:12 Code Status CODE 02/01/25 Transmitted 15:12 2 Gm Sodium Diet DIET 02/01/25 Transmitted Dinner Hydrocodone-Acet PHA 02/01/25 In Process 5/325mg Tab ([place] 15:15 Ondansetron Hcl PHA 02/01/25 In Process (Zofran) 15:15 Docusate Sodium PHA 02/01/25 In Process Capsule (Colace 15:15 Pt Request For Service PT 02/01/25 Logged 15:12 Condition: Fair BRANDO 02/01/25 In Process 15:12 Acetaminophen Tablet PHA 02/01/25 In Process (Tylenol Tablet) 15:15 Nitroglycerin PHA 02/01/25 In Process Sublingual (Ntrostat 15:15 Morphine Sulfate PHA 02/01/25 In Process Injection 15:15 Stat Ekg For Chest [facility] 02/01/25 In Process Pain 15:12 Notify Md Of Changes [facility] 02/01/25 In Process From Base 15:12 Maintainer Operator For [facility] 02/01/25 In Process 24 Hours 15:12 Emergency Dysrhythmia [facility] 02/01/25 In Process Protocol 15:12 Rhythm Strips Once [facility] 02/01/25 In Process Every Shift 15:12 Oxygen By Nasal RT 02/01/25 Transmitted Cannula 15:12 Hydralazine Hcl PHA 02/01/25 In Process Tablet (Apresoline 22:00 Trazodone Hcl PHA 02/01/25 In Process (Desyrel) 15:30 Heparin Sodium PHA 02/01/25 In Process (Porcine) 22:00 Clarification Of ORDERS 02/01/25 Transmitted Order: 15:24 Furosemide Injection PHA 02/01/25 In Process (Lasix Injection) 18:00 * Cardiology Consult CONS 02/01/25 Transmitted 15:20 *Dr. [facility] CONS 02/01/25 Transmitted -[place] 15:32 * Cutting And Boning Supervisor CONS 02/01/25 Transmitted Consult Date of Service: Feb 02, 2025 Billing Provider: MADAN ANDERSON MD Common Visit Codes: NOT BILLABLE MADAN ANDERSON MD Feb 02, 2025 14:38
[2025-02-02] MEDS: DOXYCYCLINE 100MG/100ML 100 ML IV SCH (14:45)
--- NOTE | 2025-02-02 15:28 | DVHCONRES ---
Date Seen: Feb 02, 2025 Resident Creating Document: JOANN MEDEL RESDIENT History of Present Illness Mr. Barroso is an 89-year-old male with prior medical history of hypertension, prostate cancer status post radiation therapy, insomnia gout, hyperlipidemia, and questionable ESRD, who presents today with chief complaint of bilateral lower extremity swelling and rash. He reports that for the last 2 weeks his legs have become progressively more swollen with onset of red rash along the medial surfaces of bilateral calves and thighs, with warm to the touch. He denies pain, fever, nausea, vomiting, chest pain, shortness of breath,orthopnea, abdominal pain, recent trauma, changes in urine, hematuria, and palpitations. On initial evaluation, the patient walks with a walker with minor difficulty, vitals were stable, and he has no overt signs of distress. Family History: Hypertension G8 MOTHER Allergies: Coded Allergies: NO KNOWN ALLERGIES (Unverified , 08/17/24) Home Meds Reported Medications Misc Natural Products (Elderberry/Vitamin C/Zinc) 1 Chw Chw, 1 CHW PO, TAB.CHEW 08/19/24 [place]-3 Fatty Acids (FISH OIL) 1,000 Mg Cap, 1200 MG PO, CAP 08/19/24 Trazodone Hcl (Trazodone Hcl) 50 Mg Tab, 50 MG PO PRN for FOR INSOMNIA, MG 08/19/24 Multiple Vitamin (Multivitamins) Tab, 1 TAB PO DAILY, #30 TAB 2 Refills 08/19/24 Amlodipine Besylate (Amlodipine Besylate) 5 Mg Tab, 10 MG PO DAILY for 30 Days, MG 08/19/24 Furosemide (Furosemide) 40 Mg Tab, 40 MG PO DAILY for 30 Days 08/19/24 Hydralazine Hcl (Hydralazine Hcl) 25 Mg Tab, 25 MG PO BID for 30 Days, MG 08/19/24 Lisinopril (Lisinopril) 40 Mg Tab, 40 MG PO DAILY for 30 Days, MG 08/19/24 Lovastatin (Lovastatin) 40 Mg Tab, 40 MG PO HS, TAB 08/19/24 Current Medications Current Medications Medications (Trade) Dose Ordered Sig/[place] Route PRN Reason Start Time Stop Time Status Last Admin Enoxaparin Sodium (Lovenox) 40 mg DAILY SC 02/02/25 10:00 UNV Amlodipine Besylate (Norvasc Tablet) 10 mg DAILY PO 02/02/25 10:00 02/02/25 12:56 DC 02/02/25 09:10 Hydralazine HCl (Apresoline Tablet) 25 mg BID PO 02/01/25 22:00 02/02/25 09:10 Trazodone HCl (Desyrel) 50 mg QHSP PRN PO FOR INSOMNIA 02/01/25 15:30 02/02/25 00:07 Heparin Sodium (Porcine) 5,000 units Q12HR SC 02/01/25 22:00 02/02/25 09:11 Furosemide (Lasix Injection) 40 mg BIDD IV 02/01/25 18:00 02/02/25 06:34 Carvedilol (Coreg Tablet) 3.125 mg Q12HR PO 02/02/25 22:00 Ceftriaxone Sodium 50 ml @ 100 mls/hr DAILY@09 IV 02/02/25 14:45 Doxycycline Hyclate 100 ml @ 50 mls/hr Q12H IV 02/02/25 14:45 Review of Systems Patient seen and examined at the bedside. Patient is feeling better since admission. Vital Signs Vital Signs Date Time Temp Pulse Resp B/P (MAP) Pulse Ox O2 Delivery O2 Flow Rate FiO2 02/02/25 13:00 97.7 67 17 130/71 (90) 94 97.7 02/02/25 08:00 Room Air* 0 21 Physical Exam General Appearance: Alert, Oriented X3, Cooperative, No acute distress HEENT: Atraumatic, PERRLA, EOMI, Mucous membrane moist/pink Respiratory: Clear to auscultation, Normal air movement Cardiovascular: Regular rate, Normal S1, Normal S2, No murmurs, no chest wall tenderness Abdominal: Normal bowel sounds, Soft, No tenderness, No hepatospenomegaly, No masses Extremities: Bilateral lower limb swelling, with pedal edema grade 2-3 Skin: Bilateral lower limb red rashes, extending from ankle to the hip Neuro: Normal gait, Normal speech, Strength at 5/5 X4 ext, Normal tone, Sensation intact, Cranial nerves 3-12 NL, Reflexes 2+ Psych/Mental Status: Mental status NL, Mood NL Labs/Diagnostic Data Labs Test 02/02/25 11:42 02/01/25 11:49 Range/Units White Blood Count 7.8 4.4-10.8 10^3/uL Red Blood Count 2.62 L 4.5-5.90 10^6/uL Hemoglobin 8.3 L 13.5-17.5 g/dL Hematocrit 25.1 L 41.0-53.0 % Mean Corpuscular Volume 95.5 80.0-100.0 fL Mean Corpuscular Hemoglobin 31.6 28.0-32.0 pg Mean Corpuscular Hemoglobin Concent 33.1 32.0-36.0 g/dL Red Cell Distribution Width 16.4 H 11.8-14.3 % Platelet Count 163 140-450 10^3/uL Mean Platelet Volume 11.1 H 6.9-10.8 fL Neutrophils (%) (Auto) 90.9 H 37.0-80.0 % Lymphocytes (%) (Auto) 2.7 L 10.0-50.0 % Monocytes (%) (Auto) 4.5 0.0-12.0 % Eosinophils (%) (Auto) 1.4 0.0-7.0 % Basophils (%) (Auto) 0.5 0.0-2.0 % Neutrophils # (Auto) 7.1 1.6-8.6 10 ^3/uL Lymphocytes # (Auto) 0.2 L 0.4-5.4 10 ^3/uL Monocytes # (Auto) 0.3 0-1.3 10 ^3/uL Eosinophils # (Auto) 0.1 0-0.8 10 ^3/uL Basophils # (Auto) 0 0-0.2 10 ^3/uL Nucleated Red Blood Cells 0.0 % Sodium Level 144 136-145 mmol/L Potassium Level 3.8 3.5-5.1 mmol/L Chloride Level 106 98-107 mmol/L Carbon Dioxide Level 27 20-31 mmol/L Anion Gap 11 5-15 Blood Urea Nitrogen 47 H 9-23 mg/dL Creatinine 3.21 H 0.700-1.30 mg/dL Glomerular Filtration Rate Calc 18 >90 mL/min BUN/Creatinine Ratio 14.6 10.0-20.0 Serum Glucose 120 H 74-106 mg/dL Hemoglobin A1c 5.3 <5.7 % A1C Calcium Level 8.7 8.7-10.4 mg/dL Phosphorus Level 3.9 2.4-5.1 mg/dL Magnesium Level 2.5 1.6-2.6 mg/dL Total Bilirubin 0.6 0.2-1.0 mg/dL Aspartate Amino Transferase (AST) 34 13-40 U/L Alanine Aminotransferase (ALT) 22 7-40 U/L Alkaline Phosphatase 148 H 46-116 U/L C-Reactive Protein High Sensitivity 7.20 H <1.0 mg/dL Total Protein 6.0 5.7-8.2 g/dL Albumin 3.4 3.2-4.8 g/dL Thyroid Stimulating Hormone (TSH) 6.34 H 0.55-4.78 uIU/mL Parathyroid Hormone (Intact) 91.5 H 18.4-80.1 pg/mL B-Type Natriuretic Peptide 2031.72 0-100 pg/mL Assessment This is a 89-year-old male with prior medical history of hypertension, prostate cancer status post radiation therapy, insomnia, gout, hyperlipidemia and CKD 4 came to the hospital due to bilateral lower limb swelling, red rashes and hotness. TONIA on CKD 4,VNM Prostate cancer status post radiotherapy Dyslipidemia Hypertension Gout Cellulitis Plan/recommendation: (Dr. Orourke) * IV Lasix 40 mg b.i.d. * IV antibiotic * Bladder scan * Avoid nephrotoxic drugs * Strict I&Os * We will follow up with the patient Thank you for giving us the opportunity to the care of your patient. Please call back if you have any questions/concerns. Addendum Patient seen and examined, plan discussed with resident. Agree with above, we will follow closely Patient says his Sagastume was removed one month ago by urologist Continue diuretics and antibiotic renally dose to GFR we will follow Plan discussed with: Patient, Other (RN) JOANN MEDEL Feb 02, 2025 15:28 FAVIO OROURKE MD Feb 02, 2025 17:26
[2025-02-02 16:29] LABS: Free T3 2.22 pg/mL (2.3-4.2)
[2025-02-02 16:30] LABS: Free T4 (Free Thyroxine) 0.98 ng/dL (0.89-1.76)
[2025-02-02] MEDS: CARVEDILOL 3.125 MG TAB PO SCH (22:26)
[2025-02-03] VITALS (8 sets, daily range): BP systolic 121–144; BP diastolic 59–81; PULSE 52–99; RESP 16–18; TEMP 97.4–98.9; O2SAT 94–98
[2025-02-03 09:57] LABS: Hematocrit 26.5 % (41.0-53.0); Hemoglobin 8.8 g/dL (13.5-17.5); Mean Corpuscular Hemoglobin 31.6 pg (28.0-32.0); Mean Corpuscular Volume 95.8 fL (80.0-100.0); Nucleated Red Blood Cells % 0.0 %
[2025-02-03 10:13] LABS: Iron 63.0 ug/dL (65-175)
[2025-02-03 10:15] LABS: Alanine Aminotransferase 28 U/L (7-40); Anion Gap 13 (5-15); BUN/Creatinine Ratio 15.4 (10.0-20.0); Calcium 8.9 mg/dL (8.7-10.4); Carbon Dioxide 26 mmol/L (20-31); Chloride 105 mmol/L (98-107); Glucose 105 mg/dL (74-106); Potassium 3.6 mmol/L (3.5-5.1); Sodium 144 mmol/L (136-145); Total Protein 6.4 g/dL (5.7-8.2)
[2025-02-03 10:16] LABS: Albumin 3.7 g/dL (3.2-4.8); Alkaline Phosphatase 155 U/L (46-116); Bilirubin, Total 0.6 mg/dL (0.2-1.0); Blood Urea Nitrogen 51 mg/dL (9-23); Total Iron Binding Capacity 216.0 ug/dL (250-425)
--- NOTE | 2025-02-03 11:09 | DVHPNRES ---
Progress Note Date Seen: Feb 03, 2025 Resident Creating Document: DALILA THACKER RESIDENT Has the PT tested + for MRSA If YES, has PT been informed?: No Medical Necessity Reason Pt with a Central, PICC or Fol: No Subjective Review of Systems This is an 89-year-old male with past medical history of prostate cancer sp radiotherapy, hypertension, hyperlipidemia, and gout, who presented with two weeks of progressive swelling in both lower extremities. The swelling began around the ankles and gradually extended to involve the thighs, scrotum, and lower abdomen. The patient denies chest pain, dyspnea, orthopnea, or paroxysmal nocturnal dyspnea. He also reports erythematous discoloration over both lower extremities associated with the edema but denies fever, chills, or trauma. No decrease in urine output or dysuria. No recent medication changes except ongoing radiation therapy. The progressive swelling and discomfort prompted him to come to the hospital. Past Medical History: Prostate cancer sp radiotherapy Hypertension Hyperlipidemia Gout Social History Smoker: Non-Smoker Alcohol: Denies ETOH Use Drugs: Denies Drug Use Lives In: Home 02/03/25: afib on telemetry on and off, we will change heparin prophylactic to enoxaparin once a day, continue BB, continue AB, creatinine still trending high, we will continue f/u Objective vital signs Vital Sign Date Time Temp Pulse Resp B/P (MAP) Pulse Ox O2 Delivery O2 Flow Rate FiO2 02/03/25 09:07 66 121/77 02/03/25 08:00 18 96 Nasal Cannula* 2 28 02/03/25 05:00 98.9 98.9 Total Intake and Output 02/02/25 02/02/25 02/03/25 15:00 23:00 07:00 Intake Total 636 ml 520 ml Balance 636 ml 520 ml medications Current Medications Medications Dose Ordered Sig/[place] Route Start Time Stop Time Status Last Admin Dose Admin Acetaminophen/ Hydrocodone Bitart 1 tab Q4HP PRN PO 02/01/25 15:15 Ondansetron HCl 4 mg Q4HP PRN IV 02/01/25 15:15 Docusate Sodium 100 mg BIDPRN PRN PO 02/01/25 15:15 Enoxaparin Sodium 40 mg DAILY SC 02/02/25 10:00 UNV Acetaminophen 650 mg Q6HP PRN PO 02/01/25 15:15 Nitroglycerin 0.4 mg Q5MINP PRN SL 02/01/25 15:15 Morphine Sulfate 2 mg Q30M PRN IV 02/01/25 15:15 Hydralazine HCl 25 mg BID PO 02/01/25 22:00 02/03/25 09:06 25 MG Trazodone HCl 50 mg QHSP PRN PO 02/01/25 15:30 02/02/25 00:07 50 MG Heparin Sodium (Porcine) 5,000 units Q12HR SC 02/01/25 22:00 02/03/25 09:09 5,000 UNITS Furosemide 40 mg BIDD IV 02/01/25 18:00 02/03/25 05:20 40 MG Carvedilol 3.125 mg Q12HR PO 02/02/25 22:00 02/03/25 09:07 3.125 MG Ceftriaxone Sodium 50 ml @ 100 mls/hr DAILY@09 IV 02/02/25 14:45 02/03/25 09:06 100 MLS/HR Doxycycline Hyclate 100 ml @ 50 mls/hr Q12H IV 02/02/25 14:45 02/03/25 02:25 50 MLS/HR Examination General: Elderly male, alert and oriented, in no acute distress. HEENT: No JVD, mucous membranes moist. Cardiac: Regular rate and rhythm, no murmurs, rubs, or gallops. Lungs: Mild bibasilar crackles, no wheezing. Abdomen: Soft, mildly distended from edema, non-tender. No ascites. Extremities: 2+ pitting edema up to abdomen, scrotal swelling present. Erythematous rash over lower legs, warm to touch, mildly tender, no drainage. Neuro: Grossly intact. laboratory and microbiology Laboratory Tests 02/03/25 09:37 Test 02/03/25 09:37 Range/Units Serum Glucose 105 74-106 mg/dL Problem List/Assessment/Plan Problem List/Assessment/Plan 89-year-old male with possible newly diagnosed systolic heart failure (EF 30%) in the prelim echo presenting with significant volume overload, acute kidney injury and marked bilateral lower extremity and scrotal edema. BNP elevated at 2000. Ultrasound negative for DVT. Also has mild erythematous changes on lower legs concerning for early cellulitis. sp radiotherapy for prostate cancer. Plan: Afib: CHADVASC 4: enoxaparin once a day, continue BB Heart Failure: Discontinue amlodipine (may exacerbate edema). Continue (low dose) and hydralazine. Defer initiation of ACEi/ARB/ARNI and spironolactone until renal function improves. Strict I&O, daily weights, low-salt and fluid restriction.Pending official echo report Renal Function: Monitor renal parameters closely. Pending urine studies Avoid nephrotoxins and IV contrast. Ischemic Workup: Given elevated creatinine , coronary angiography is deferred during this admission due to high risk for contrast-induced nephropathy and potential need for dialysis. The ischemic evaluation will be arranged as an outpatient once renal function stabilizes. Volume Management: Gentle diuresis as tolerated under nephrology guidance. 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
--- NOTE | 2025-02-03 12:29 | DVHPN2 ---
Subjective Overnight events noted. Patient's kidney function improved little bit better Changes from previous H/P or p: No Changes Objective Vitals Vital Signs Date Time Temp Pulse Resp B/P (MAP) Pulse Ox O2 Delivery O2 Flow Rate FiO2 02/03/25 09:07 66 121/77 02/03/25 08:00 18 96 Nasal Cannula* 2 28 02/03/25 05:00 98.9 98.9 Intake/Output Intake and Output 02/03/25 07:00 Intake Total 1156 ml Balance 1156 ml Intake Oral 1156 ml # Voids 6 # Bowel Movements 6 Exam HEENT pupils are reactive Neck is supple CV is S1-S2 regular rate and rhythm Respiratory diminished breath sounds bases GI positive bowel sound Extremity 3+ pitting edema with a early inflammation in the legs 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 Medications Current Medications Medications Dose Ordered Sig/Mukesh Route Start Time Stop Time Status Last Admin Dose Admin Acetaminophen/ Hydrocodone Bitart 1 tab Q4HP PRN PO 02/01/25 15:15 Ondansetron HCl 4 mg Q4HP PRN IV 02/01/25 15:15 Docusate Sodium 100 mg BIDPRN PRN PO 02/01/25 15:15 Enoxaparin Sodium 40 mg DAILY SC 02/02/25 10:00 UNV Acetaminophen 650 mg Q6HP PRN PO 02/01/25 15:15 Nitroglycerin 0.4 mg Q5MINP PRN SL 02/01/25 15:15 Morphine Sulfate 2 mg Q30M PRN IV 02/01/25 15:15 Hydralazine HCl 25 mg BID PO 02/01/25 22:00 02/03/25 09:06 25 MG Trazodone HCl 50 mg QHSP PRN PO 02/01/25 15:30 02/02/25 00:07 50 MG Furosemide 40 mg BIDD IV 02/01/25 18:00 02/03/25 05:20 40 MG Carvedilol 3.125 mg Q12HR PO 02/02/25 22:00 02/03/25 09:07 3.125 MG Ceftriaxone Sodium 50 ml @ 100 mls/hr DAILY@09 IV 02/02/25 14:45 02/03/25 09:06 100 MLS/HR Doxycycline Hyclate 100 ml @ 50 mls/hr Q12H IV 02/02/25 14:45 02/03/25 02:25 50 MLS/HR Enoxaparin Sodium 80 mg DAILY SC 02/04/25 10:00 UNV Laboratory Results Laboratory Tests 02/03/25 09:37 Chemistry Test 02/03/25 09:37 Albumin 3.7 g/dL (3.2-4.8) Calcium Level 8.9 mg/dL (8.7-10.4) Total Protein 6.4 g/dL (5.7-8.2) LFT Test 02/03/25 09:37 Alanine Aminotransferase (ALT) 28 U/L (7-40) Alkaline Phosphatase 155 U/L (46-116) H Aspartate Amino Transferase (AST) 46 U/L (13-40) H Total Bilirubin 0.6 mg/dL (0.2-1.0) Assessment/Plan Assessment/Plan 89-year-old male with a known history of hypertension, dyslipidemia, gout, chronic insomnia who initially presented to the hospital with a bilateral leg swelling and scrotal swelling found to have 1. Bilateral leg swelling and scrotal swelling secondary to acute CHF exacerbation and CKD 2. Acute CHF exacerbation with a systolic dysfunction 3. 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 Hypertensive heart disease 5. Hypertension 6. Dyslipidemia 7. Gout 8. Bilateral lower extremity cellulitis 9. Chronic insomnia -IV antibiotics, strict I&O -IV diuretics, nephrology follow up Plan discussed with: Patient My Orders Orders - MADAN ANDERSON MD Procedure Category Date Status Time Ceftriaxone 1gm/50ml PHA 02/02/25 In Process (Rocephin) 14:45 Doxycycline PHA 02/02/25 In Process 100mg/100ml 14:45 Date of Service: Feb 03, 2025 Billing Provider: MADAN ANDERSON MD Common Visit Codes: NOT BILLABLE MADAN ANDERSON MD Feb 03, 2025 12:29
--- NOTE | 2025-02-03 13:35 | DVHPN2 ---
Progress Note Date Seen: Feb 03, 2025 Resident Creating Document: JOANN MEDEL JB Has the PT tested + for MRSA If YES, has PT been informed?: No Medical Necessity Reason Pt with a Central, PICC or Fol: No Subjective Review of Systems Patient seen and examined at the bedside. Patient is feeling better since admission. Objective vital signs Vital Sign Date Time Temp Pulse Resp B/P (MAP) Pulse Ox O2 Delivery O2 Flow Rate FiO2 02/03/25 10:07 74 120/68 02/03/25 08:00 18 96 Nasal Cannula* 2 28 02/03/25 05:00 98.9 98.9 Total Intake and Output 02/02/25 02/02/25 02/03/25 15:00 23:00 07:00 Intake Total 636 ml 520 ml Balance 636 ml 520 ml medications Current Medications Medications Dose Ordered Sig/Mukesh Route Start Time Stop Time Status Last Admin Dose Admin Acetaminophen/ Hydrocodone Bitart 1 tab Q4HP PRN PO 02/01/25 15:15 Ondansetron HCl 4 mg Q4HP PRN IV 02/01/25 15:15 Docusate Sodium 100 mg BIDPRN PRN PO 02/01/25 15:15 Enoxaparin Sodium 40 mg DAILY SC 02/02/25 10:00 UNV Acetaminophen 650 mg Q6HP PRN PO 02/01/25 15:15 Nitroglycerin 0.4 mg Q5MINP PRN SL 02/01/25 15:15 Morphine Sulfate 2 mg Q30M PRN IV 02/01/25 15:15 Hydralazine HCl 25 mg BID PO 02/01/25 22:00 02/03/25 09:06 25 MG Trazodone HCl 50 mg QHSP PRN PO 02/01/25 15:30 02/02/25 00:07 50 MG Furosemide 40 mg BIDD IV 02/01/25 18:00 02/03/25 05:20 40 MG Carvedilol 3.125 mg Q12HR PO 02/02/25 22:00 02/03/25 09:07 3.125 MG Ceftriaxone Sodium 50 ml @ 100 mls/hr DAILY@09 IV 02/02/25 14:45 02/03/25 09:06 100 MLS/HR Doxycycline Hyclate 100 ml @ 50 mls/hr Q12H IV 02/02/25 14:45 02/03/25 02:25 50 MLS/HR Enoxaparin Sodium 80 mg DAILY SC 02/04/25 10:00 UNV Examination General Appearance: Alert, Oriented X3, Cooperative, No acute distress HEENT: Atraumatic, PERRLA, EOMI, Mucous membrane moist/pink Respiratory: Clear to auscultation, Normal air movement Cardiovascular: Regular rate, Normal S1, Normal S2, No murmurs, no chest wall tenderness Abdominal: Normal bowel sounds, Soft, No tenderness, No hepatospenomegaly, No masses Extremities: Bilateral lower limb swelling, with pedal edema grade 2-3 Skin: Bilateral lower limb red rashes, extending from ankle to the hip Neuro: Normal gait, Normal speech, Strength at 5/5 X4 ext, Normal tone, Sensation intact, Cranial nerves 3-12 NL, Reflexes 2+ Psych/Mental Status: Mental status NL, Mood NL laboratory and microbiology Laboratory Tests 02/03/25 09:37 Test 02/03/25 09:37 Range/Units Serum Glucose 105 74-106 mg/dL Labs and/or images reviewed: Labs reviewed by me, Image(s) reviewed by me Problem List/Assessment/Plan Problem List/Assessment/Plan This is a 89-year-old male with prior medical history of hypertension, prostate cancer status post radiation therapy, insomnia, gout, hyperlipidemia and CKD 4 came to the hospital due to bilateral lower limb swelling, red rashes and hotness. TONIA on CKD 4, hemodynamic etiology Prostate cancer status post radiotherapy Dyslipidemia Hypertension Gout Cellulitis Plan/recommendation: (Dr. Orourke) * IV Lasix 40 mg b.i.d., started metolazone 5 mg daily * IV antibiotic * Bladder scan wnl no retention * Avoid nephrotoxic drugs * Strict I&Os * We will follow up with the patient Thank you for giving us the opportunity to the care of your patient. Please call back if you have any questions/concerns. Addendum Patient seen and examined, plan discussed with resident. Agree with above, we will follow closely Plan discussed with: Patient, Other (RN) JOANN MEDEL Feb 03, 2025 13:35 FAVIO OROURKE MD Feb 03, 2025 17:22
[2025-02-04] VITALS (8 sets, daily range): BP systolic 132–158; BP diastolic 66–82; PULSE 54–95; RESP 18–24; TEMP 97.5–98.2; O2SAT 94–98
[2025-02-04 06:51] LABS: Nucleated Red Blood Cells % 0.1 %
[2025-02-04 06:54] LABS: Hematocrit 25.1 % (41.0-53.0); Hemoglobin 8.5 g/dL (13.5-17.5); Mean Corpuscular Hemoglobin 31.9 pg (28.0-32.0); Mean Corpuscular Volume 94.8 fL (80.0-100.0)
[2025-02-04 07:11] LABS: Alanine Aminotransferase 31 U/L (7-40); Albumin 3.4 g/dL (3.2-4.8); Alkaline Phosphatase 149 U/L (46-116); Anion Gap 13 (5-15); BUN/Creatinine Ratio 14.8 (10.0-20.0); Bilirubin, Total 0.4 mg/dL (0.2-1.0); Blood Urea Nitrogen 57 mg/dL (9-23); Calcium 8.8 mg/dL (8.7-10.4); Carbon Dioxide 24 mmol/L (20-31); Chloride 106 mmol/L (98-107); Glucose 89 mg/dL (74-106); Potassium 3.9 mmol/L (3.5-5.1); Sodium 143 mmol/L (136-145); Total Protein 6.0 g/dL (5.7-8.2)
--- NOTE | 2025-02-04 09:16 | DVHSR ---
APPROVED REPORT EXAM: Two-dimensional and M-mode echocardiogram with Doppler and color Doppler. Blood Pressure: 141/68 mmHg INDICATION congestive heart failure RISK FACTORS Height: 65, Weight: 182 DIMENSIONS LVDd 5.6 (3.8-5.7cm) LA (2D) 4.5 (1.9-4.0cm) Aortic Root 4.0 (2.0-3.7cm) LVDs 4.7 (2.5-4.0cm) LA (MM) (1.9-4.0cm) Aortic Cusp Exc 1.7 (1.5-2.0cm) EF (%) 30.0 (55-70%) Rt. Atrium 5.0 (1.9-4.0cm) Asc. Aorta 3.4 cm IVSd 1.0 (0.7-1.1cm) RV (D) 4.5 (1.8-2.4cm) PWd 1.0 (0.7-1.1cm) Mitral Valve Mitral Mitral Stenosis E wave 0.80m/s MV Mean GR. mmHg A wave 0.75m/s MV Peak GR. 125mmHg E/A ratio 1.1 2D MVA cm2 DECEL Time 177ms PRESS 1/2 Time ms Aortic Valve Aortic Valve Aortic Stenosis V1 0.84m/s AO Mean GR. 6mmHg V2 1.67m/s AO Peak GR. 11mmHg LVOT Diameter 2.6 (1.8-2.4cm) Doppler JUVENTINO 2.67cm2 AI P 1/2 Time 344.89ms Pulmonic Valve V2 0.76m/s Tricuspid Valve TR Velocity 2.91m/s RVSP 53mmHg Conclusion Technically good study. Atrial fibrillation. Biatrial and biventricular enlargement. Aortic root enlargement. Valves appear to be structurally normal. Left ventricular systolic performance is markedly diminished. EF is between 15- 20% with severe global hypokinesis. There was [id number] aortic insufficiency with moderate tricuspid and mitral insufficiency. Pulmonary artery hypertension noted. Moderate pulmonic insufficiency noted. No pericardial effusion masses or vegetations.
[2025-02-04] MEDS: ENOXAPARIN SOD 100 MG/1 ML SYRINGE SC SCH (09:24)
[2025-02-04 09:28] LABS: Urine Protein, UAD 2+ (Negative)
[2025-02-04 09:52] LABS: Protein, Urine 317.6 mg/dL (1-14)
--- NOTE | 2025-02-04 14:24 | DVHPNRES ---
Progress Note Date Seen: Feb 04, 2025 Resident Creating Document: DALILA THACKER RESIDENT Has the PT tested + for MRSA If YES, has PT been informed?: No Medical Necessity Reason Pt with a Central, PICC or Fol: No Subjective Review of Systems This is an 89-year-old male with past medical history of prostate cancer sp radiotherapy, hypertension, hyperlipidemia, and gout, who presented with two weeks of progressive swelling in both lower extremities. The swelling began around the ankles and gradually extended to involve the thighs, scrotum, and lower abdomen. The patient denies chest pain, dyspnea, orthopnea, or paroxysmal nocturnal dyspnea. He also reports erythematous discoloration over both lower extremities associated with the edema but denies fever, chills, or trauma. No decrease in urine output or dysuria. No recent medication changes except ongoing radiation therapy. The progressive swelling and discomfort prompted him to come to the hospital. Past Medical History: Prostate cancer sp radiotherapy Hypertension Hyperlipidemia Gout Social History Smoker: Non-Smoker Alcohol: Denies ETOH Use Drugs: Denies Drug Use Lives In: Home 02/03/25: afib on telemetry on and off, we will change heparin prophylactic to enoxaparin once a day, continue BB, continue AB, creatinine still trending high, we will continue f/u 02/04/25: ECHO findings: Left ventricular systolic performance is markedly diminished. EF is between 15-20% with severe global hypokinesis. There was [id number] aortic insufficiency with moderate tricuspid and mitral insufficiency. Pulmonary artery hypertension noted. Moderate pulmonic insufficiency noted. Case discussed with his daughter Erin: patient has HF and further work up should be done as outpatient due to TONIA on CKD, no acute ACS, nephrology clearance for further procedures is needed, she is advised to obtain referral from patients PCP to continue f/u with Dr Coleman on his office, cardiology will sign off of his case and will follow the patient in the clinic: continue BB low dose, please continue low dose eliquis due to new onset afib, further GDMT after nephrology clearance Objective vital signs Vital Sign Date Time Temp Pulse Resp B/P (MAP) Pulse Ox O2 Delivery O2 Flow Rate FiO2 02/04/25 13:00 97.7 54 20 139/68 (91) 94 97.7 02/04/25 08:00 Room Air* 0 21 Total Intake and Output 02/03/25 02/03/25 02/04/25 15:00 23:00 07:00 Intake Total 50 ml 630 ml 500 ml Balance 50 ml 630 ml 500 ml medications Current Medications Medications Dose Ordered Sig/Mukesh Route Start Time Stop Time Status Last Admin Dose Admin Acetaminophen/ Hydrocodone Bitart 1 tab Q4HP PRN PO 02/01/25 15:15 Ondansetron HCl 4 mg Q4HP PRN IV 02/01/25 15:15 Docusate Sodium 100 mg BIDPRN PRN PO 02/01/25 15:15 Enoxaparin Sodium 40 mg DAILY SC 02/02/25 10:00 UNV Acetaminophen 650 mg Q6HP PRN PO 02/01/25 15:15 Nitroglycerin 0.4 mg Q5MINP PRN SL 02/01/25 15:15 Morphine Sulfate 2 mg Q30M PRN IV 02/01/25 15:15 Hydralazine HCl 25 mg BID PO 02/01/25 22:00 02/04/25 09:24 25 MG Trazodone HCl 50 mg QHSP PRN PO 02/01/25 15:30 02/02/25 00:07 50 MG Carvedilol 3.125 mg Q12HR PO 02/02/25 22:00 02/04/25 09:26 3.125 MG Ceftriaxone Sodium 50 ml @ 100 mls/hr DAILY@09 IV 02/02/25 14:45 02/04/25 09:23 100 MLS/HR Doxycycline Hyclate 100 ml @ 50 mls/hr Q12H IV 02/02/25 14:45 02/04/25 02:43 50 MLS/HR Enoxaparin Sodium 80 mg DAILY SC 02/04/25 10:00 02/04/25 09:24 80 MG Metolazone 5 mg DAILY PO 02/04/25 10:00 02/04/25 09:25 5 MG Furosemide 20 mg BIDD IV 02/04/25 18:00 Examination General: Elderly male, alert and oriented, in no acute distress. HEENT: No JVD, mucous membranes moist. Cardiac: Regular rate and rhythm, no murmurs, rubs, or gallops. Lungs: Mild bibasilar crackles, no wheezing. Abdomen: Soft, mildly distended from edema, non-tender. No ascites. Extremities: 2+ pitting edema up to abdomen, scrotal swelling present. Erythematous rash over lower legs, warm to touch, mildly tender, no drainage. Neuro: Grossly intact. laboratory and microbiology Laboratory Tests 02/04/25 06:18 Test 02/04/25 06:18 Range/Units Serum Glucose 89 74-106 mg/dL Problem List/Assessment/Plan Problem List/Assessment/Plan 89-year-old male with possible newly diagnosed systolic heart failure (EF 30%) in the prelim echo presenting with significant volume overload, acute kidney injury and marked bilateral lower extremity and scrotal edema. BNP elevated at 2000. Ultrasound negative for DVT. Also has mild erythematous changes on lower legs concerning for early cellulitis. sp radiotherapy for prostate cancer. Plan: Afib: CHADVASC 4: enoxaparin once a day, continue BB Heart Failure: Discontinue amlodipine (may exacerbate edema). Continue (low dose) and hydralazine. Defer initiation of ACEi/ARB/ARNI and spironolactone until renal function improves. Strict I&O, daily weights, low-salt and fluid restriction. Renal Function: Monitor renal parameters closely. Pending urine studies Avoid nephrotoxins and IV contrast. Ischemic Workup: Given elevated creatinine , coronary angiography is deferred during this admission due to high risk for contrast-induced nephropathy and potential need for dialysis. The ischemic evaluation will be arranged as an outpatient once renal function stabilizes. Volume Management: Gentle diuresis as tolerated under nephrology guidance. Infection: on IV AB Prostate Cancer: Continue coordination with oncology as outpatient 02/04/25: ECHO findings: Left ventricular systolic performance is markedly diminished. EF is between 15-20% with severe global hypokinesis. There was [id number] aortic insufficiency with moderate tricuspid and mitral insufficiency. Pulmonary artery hypertension noted. Moderate pulmonic insufficiency noted. Case discussed with his daughter Erin: patient has HF and further work up should be done as outpatient due to TONIA on CKD, no acute ACS, nephrology clearance for further procedures is needed, she is advised to obtain referral from patients PCP to continue f/u with Dr Coleman on his office, cardiology will sign off of his case and will follow the patient in the clinic: continue BB low dose, please continue low dose eliquis due to new onset afib, further GDMT after nephrology clearance Case discussed with Dr Coleman, case management manager Time spent on care 71 min Plan discussed with: Patient, Other (rn) Visit Coding Cardiology RES Date of Service: Feb 04, 2025 Billing Provider: DALILA THACKER Cardiology Common Codes: [id number] CARE 30-74 MIN DALILA THACKER Feb 04, 2025 14:24
--- NOTE | 2025-02-04 15:00 | DVHPN2 ---
Progress Note - Dictate Date Seen: Feb 04, 2025 Has the PT tested + for MRSA If YES, has PT been informed?: No Medical Necessity Reason Pt with a Central, PICC or Fol: No Subjective Patient is clinically stable. Using his cane to ambulate in the room. Diuresing well. 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 His BUN creatinine is mildly worsened today. Redness in his lower extremities is improving. vital signs Vital Sign Date Time Temp Pulse Resp B/P (MAP) Pulse Ox O2 Delivery O2 Flow Rate FiO2 02/04/25 13:00 97.7 54 20 139/68 (91) 94 97.7 02/04/25 08:00 Room Air* 0 21 Total Intake and Output 02/03/25 02/03/25 02/04/25 15:00 23:00 07:00 Intake Total 50 ml 630 ml 500 ml Balance 50 ml 630 ml 500 ml medications Current Medications Medications Dose Ordered Sig/Mukesh Route Start Time Stop Time Status Last Admin Dose Admin Acetaminophen/ Hydrocodone Bitart 1 tab Q4HP PRN PO 02/01/25 15:15 Ondansetron HCl 4 mg Q4HP PRN IV 02/01/25 15:15 Docusate Sodium 100 mg BIDPRN PRN PO 02/01/25 15:15 Enoxaparin Sodium 40 mg DAILY SC 02/02/25 10:00 UNV Acetaminophen 650 mg Q6HP PRN PO 02/01/25 15:15 Nitroglycerin 0.4 mg Q5MINP PRN SL 02/01/25 15:15 Morphine Sulfate 2 mg Q30M PRN IV 02/01/25 15:15 Hydralazine HCl 25 mg BID PO 02/01/25 22:00 02/04/25 09:24 25 MG Trazodone HCl 50 mg QHSP PRN PO 02/01/25 15:30 02/02/25 00:07 50 MG Carvedilol 3.125 mg Q12HR PO 02/02/25 22:00 02/04/25 09:26 3.125 MG Ceftriaxone Sodium 50 ml @ 100 mls/hr DAILY@09 IV 02/02/25 14:45 02/04/25 09:23 100 MLS/HR Doxycycline Hyclate 100 ml @ 50 mls/hr Q12H IV 02/02/25 14:45 02/04/25 02:43 50 MLS/HR Enoxaparin Sodium 80 mg DAILY SC 02/04/25 10:00 02/04/25 09:24 80 MG Metolazone 5 mg DAILY PO 02/04/25 10:00 02/04/25 09:25 5 MG Furosemide 20 mg BIDD IV 02/04/25 18:00 objective Denies any complaints comfortable in bed. Alert awake oriented x3. Heart regular rate and rhythm S1-S2. Lungs fair air movement without wheezing. Abdomen obese soft positive bowel sounds. Extremities improved edema and erythema in the lower extremities with a positive pulses. laboratory and microbiology Laboratory Tests 02/04/25 06:18 Test 02/04/25 06:18 Range/Units Serum Glucose 89 74-106 mg/dL Assessment/Plan Bilateral lower extremity cellulitis with a dependent leg edema CKD four Continue current IV antibiotics and IV Lasix dose has been adjusted and metolazone has been added by Nephrology. Given his kidney function mildly worsened I will give him few dose of IV albumin along with these diuretics to see if he would kidney function stabilizes. Otherwise continue rest of supportive care and treatment. If he remains stable consider discharge home tomorrow. Discussed with the patient's nurse regarding care plan at bedside. Problems(with codes): (1) Dehydration (2) Hyperkalemia (3) Metabolic acidosis Plan discussed with: Patient JULIO CÉSAR PETERS MD Feb 04, 2025 15:00
[2025-02-04] MEDS: ALBUMIN 25% 50 ML IV SCH (15:46)
--- NOTE | 2025-02-04 17:35 | DVHPN2 ---
Progress Note Date Seen: Feb 04, 2025 Resident Creating Document: JOANN MEDEL JB Has the PT tested + for MRSA If YES, has PT been informed?: No Medical Necessity Reason Pt with a Central, PICC or Fol: No Subjective Review of Systems Patient seen and examined at the bedside. Patient is feeling better since admission. Objective vital signs Vital Sign Date Time Temp Pulse Resp B/P (MAP) Pulse Ox O2 Delivery O2 Flow Rate FiO2 02/04/25 13:00 97.7 54 20 139/68 (91) 94 97.7 02/04/25 08:00 Room Air* 0 21 Total Intake and Output 02/03/25 02/03/25 02/04/25 14:59 22:59 06:59 Intake Total 50 ml 630 ml 500 ml Balance 50 ml 630 ml 500 ml medications Current Medications Medications Dose Ordered Sig/Mukesh Route Start Time Stop Time Status Last Admin Dose Admin Acetaminophen/ Hydrocodone Bitart 1 tab Q4HP PRN PO 02/01/25 15:15 Ondansetron HCl 4 mg Q4HP PRN IV 02/01/25 15:15 Docusate Sodium 100 mg BIDPRN PRN PO 02/01/25 15:15 Enoxaparin Sodium 40 mg DAILY SC 02/02/25 10:00 UNV Acetaminophen 650 mg Q6HP PRN PO 02/01/25 15:15 Nitroglycerin 0.4 mg Q5MINP PRN SL 02/01/25 15:15 Morphine Sulfate 2 mg Q30M PRN IV 02/01/25 15:15 Hydralazine HCl 25 mg BID PO 02/01/25 22:00 02/04/25 09:24 25 MG Trazodone HCl 50 mg QHSP PRN PO 02/01/25 15:30 02/02/25 00:07 50 MG Carvedilol 3.125 mg Q12HR PO 02/02/25 22:00 02/04/25 09:26 3.125 MG Ceftriaxone Sodium 50 ml @ 100 mls/hr DAILY@09 IV 02/02/25 14:45 02/04/25 09:23 100 MLS/HR Doxycycline Hyclate 100 ml @ 50 mls/hr Q12H IV 02/02/25 14:45 02/04/25 02:43 50 MLS/HR Enoxaparin Sodium 80 mg DAILY SC 02/04/25 10:00 02/04/25 09:24 80 MG Metolazone 5 mg DAILY PO 02/04/25 10:00 02/04/25 09:25 5 MG Furosemide 20 mg BIDD IV 02/04/25 18:00 Albumin Human 50 ml @ 100 mls/hr Q8H IV 02/04/25 15:00 02/05/25 07:29 02/04/25 15:46 100 MLS/HR Examination General Appearance: Alert, Oriented X3, Cooperative, No acute distress HEENT: Atraumatic, PERRLA, EOMI, Mucous membrane moist/pink Respiratory: Clear to auscultation, Normal air movement Cardiovascular: Regular rate, Normal S1, Normal S2, No murmurs, no chest wall tenderness Abdominal: Normal bowel sounds, Soft, No tenderness, No hepatospenomegaly, No masses Extremities: Bilateral lower limb swelling, with pedal edema grade 2-3 Skin: Bilateral lower limb red rashes, extending from ankle to the hip Neuro: Normal gait, Normal speech, Strength at 5/5 X4 ext, Normal tone, Sensation intact, Cranial nerves 3-12 NL, Reflexes 2+ Psych/Mental Status: Mental status NL, Mood NL laboratory and microbiology Laboratory Tests 02/04/25 06:18 Test 02/04/25 06:18 Range/Units Serum Glucose 89 74-106 mg/dL Labs and/or images reviewed: Labs reviewed by me, Image(s) reviewed by me Problem List/Assessment/Plan Problem List/Assessment/Plan This is a 89-year-old male with prior medical history of hypertension, prostate cancer status post radiation therapy, insomnia, gout, hyperlipidemia and CKD 4 came to the hospital due to bilateral lower limb swelling, red rashes and hotness. TONIA on CKD 4, hemodynamic etiology Prostate cancer status post radiotherapy Dyslipidemia Hypertension Gout Cellulitis Plan/recommendation: (Dr. Orourke) * IV Lasix 40 mg b.i.d., and metolazone 5 mg daily * IV antibiotic * Bladder scan * Avoid nephrotoxic drugs * Strict I&Os * We will follow up with the patient Thank you for giving us the opportunity to the care of your patient. Please call back if you have any questions/concerns. Addendum Patient seen and examined, plan discussed with resident. Agree with above, we will follow closely Plan discussed with: Patient, Other (RN) My Orders My Orders Orders - JOANN MEDEL Procedure Category Date Status Time Bladder Scan ORDERS 02/04/25 Transmitted 16:24 JOANN MEDEL Feb 04, 2025 17:35 FAVIO OROURKE MD Feb 04, 2025 18:19
[2025-02-04] MEDS: FUROSEMIDE 40 MG/4 ML VIAL IV SCH (17:59)
[2025-02-05] VITALS (8 sets, daily range): BP systolic 142–164; BP diastolic 69–80; PULSE 47–79; RESP 15–20; TEMP 97–98.4; O2SAT 92–100
[2025-02-05 07:37] LABS: Chloride 104 mmol/L (98-107); Potassium 3.7 mmol/L (3.5-5.1); Sodium 142 mmol/L (136-145)
[2025-02-05 07:38] LABS: Calcium 8.9 mg/dL (8.7-10.4)
[2025-02-05 07:43] LABS: BUN/Creatinine Ratio 15.1 (10.0-20.0); Glucose 85 mg/dL (74-106)
[2025-02-05 07:44] LABS: Blood Urea Nitrogen 64 mg/dL (9-23)
[2025-02-05 08:21] LABS: Anion Gap 15 (5-15); Carbon Dioxide 23 mmol/L (20-31)
[2025-02-05] MEDS ORDERED: hydrALAZINE HCL 20 MG/ML VL IV PRN (14:30)
--- NOTE | 2025-02-05 15:03 | DVHPN2 ---
Progress Note - Dictate Date Seen: Feb 05, 2025 Has the PT tested + for MRSA If YES, has PT been informed?: No Medical Necessity Reason Pt with a Central, PICC or Fol: No Subjective Patient has diuresed well and leg swelling has significantly improved. His erythema also significantly improved today. However his creatinine has mildly worsened. Therefore metolazone has been discontinued by the Nephrology resident. vital signs Vital Sign Date Time Temp Pulse Resp B/P (MAP) Pulse Ox O2 Delivery O2 Flow Rate FiO2 02/05/25 13:00 98.0 56 18 155/72 (99) 100 98.0 02/05/25 08:00 Nasal Cannula* 4 36 Total Intake and Output 02/04/25 02/04/25 02/05/25 15:00 23:00 07:00 Intake Total 560 ml 200 ml Output Total 415 ml 50 ml Balance 145 ml 150 ml medications Current Medications Medications Dose Ordered Sig/Mukesh Route Start Time Stop Time Status Last Admin Dose Admin Acetaminophen/ Hydrocodone Bitart 1 tab Q4HP PRN PO 02/01/25 15:15 Ondansetron HCl 4 mg Q4HP PRN IV 02/01/25 15:15 Docusate Sodium 100 mg BIDPRN PRN PO 02/01/25 15:15 Enoxaparin Sodium 40 mg DAILY SC 02/02/25 10:00 UNV Acetaminophen 650 mg Q6HP PRN PO 02/01/25 15:15 Nitroglycerin 0.4 mg Q5MINP PRN SL 02/01/25 15:15 Morphine Sulfate 2 mg Q30M PRN IV 02/01/25 15:15 Trazodone HCl 50 mg QHSP PRN PO 02/01/25 15:30 02/02/25 00:07 50 MG Carvedilol 3.125 mg Q12HR PO 02/02/25 22:00 02/05/25 09:17 3.125 MG Ceftriaxone Sodium 50 ml @ 100 mls/hr DAILY@09 IV 02/02/25 14:45 02/05/25 09:00 100 MLS/HR Doxycycline Hyclate 100 ml @ 50 mls/hr Q12H IV 02/02/25 14:45 02/05/25 03:16 50 MLS/HR Hydralazine HCl 50 mg BID PO 02/05/25 14:30 Hydralazine HCl 10 mg Q6HP PRN IV 02/05/25 14:30 Enoxaparin Sodium 30 mg DAILY SC 02/06/25 10:00 Clonidine HCl 0.1 mg Q4HP PRN PO 02/05/25 14:45 objective Denies any complaints comfortable in bed. Alert awake oriented x3. Heart regular rate and rhythm S1-S2. Lungs fair air movement without wheezing. Abdomen obese soft positive bowel sounds. Extremities improved edema and erythema in the lower extremities with a positive pulses. laboratory and microbiology Laboratory Tests 02/05/25 06:21 02/04/25 06:18 Test 02/05/25 06:21 Range/Units Serum Glucose 85 74-106 mg/dL Assessment/Plan Bilateral lower extremity cellulitis with a dependent leg edema CKD four Continue current antibiotics. Given the worsening creatinine I will DC IV Lasix as well. We will monitor him for now. Patient has a baseline CKD four. If creatinine stabilizes then he could be discharged home with outpatient follow up with the Nephrology and to consider dialysis down the road if he does not improve. Discussed with the patient at bedside regarding care plan. Given his blood pressure is elevated I will increase hydralazine to 50 b.i.d. as well as add Procardia in the evening time. Plan discussed with: Patient, Other JULIO CÉSAR PETERS MD Feb 05, 2025 15:03
--- NOTE | 2025-02-05 15:21 | DVHPN2 ---
Progress Note Date Seen: Feb 05, 2025 Has the PT tested + for MRSA If YES, has PT been informed?: No Medical Necessity Reason Pt with a Central, PICC or Fol: No Subjective Patient reports: No new complaints Objective vital signs Vital Sign Date Time Temp Pulse Resp B/P (MAP) Pulse Ox O2 Delivery O2 Flow Rate FiO2 02/05/25 13:00 98.0 56 18 155/72 (99) 100 98.0 02/05/25 08:00 Nasal Cannula* 4 36 Total Intake and Output 02/04/25 02/04/25 02/05/25 15:00 23:00 07:00 Intake Total 560 ml 200 ml Output Total 415 ml 50 ml Balance 145 ml 150 ml medications Current Medications Medications Dose Ordered Sig/Mukesh Route Start Time Stop Time Status Last Admin Dose Admin Acetaminophen/ Hydrocodone Bitart 1 tab Q4HP PRN PO 02/01/25 15:15 Ondansetron HCl 4 mg Q4HP PRN IV 02/01/25 15:15 Docusate Sodium 100 mg BIDPRN PRN PO 02/01/25 15:15 Enoxaparin Sodium 40 mg DAILY SC 02/02/25 10:00 UNV Acetaminophen 650 mg Q6HP PRN PO 02/01/25 15:15 Nitroglycerin 0.4 mg Q5MINP PRN SL 02/01/25 15:15 Morphine Sulfate 2 mg Q30M PRN IV 02/01/25 15:15 Trazodone HCl 50 mg QHSP PRN PO 02/01/25 15:30 02/02/25 00:07 50 MG Carvedilol 3.125 mg Q12HR PO 02/02/25 22:00 02/05/25 09:17 3.125 MG Ceftriaxone Sodium 50 ml @ 100 mls/hr DAILY@09 IV 02/02/25 14:45 02/05/25 09:00 100 MLS/HR Doxycycline Hyclate 100 ml @ 50 mls/hr Q12H IV 02/02/25 14:45 02/05/25 03:16 50 MLS/HR Hydralazine HCl 50 mg BID PO 02/05/25 14:30 Hydralazine HCl 10 mg Q6HP PRN IV 02/05/25 14:30 Enoxaparin Sodium 30 mg DAILY SC 02/06/25 10:00 Clonidine HCl 0.1 mg Q4HP PRN PO 02/05/25 14:45 Nifedipine 30 mg QPM PO 02/05/25 18:00 laboratory and microbiology Laboratory Tests 02/05/25 06:21 02/04/25 06:18 Test 02/05/25 06:21 Range/Units Serum Glucose 85 74-106 mg/dL Problem List/Assessment/Plan Problem List/Assessment/Plan This is a 89-year-old male with prior medical history of hypertension, prostate cancer status post radiation therapy, insomnia, gout, hyperlipidemia and CKD 4 came to the hospital due to bilateral lower limb swelling, red rashes and hotness. TONIA on CKD 4, hemodynamic etiology Prostate cancer status post radiotherapy Dyslipidemia Hypertension Gout Cellulitis Plan/recommendation: hold metolozone lasix held by hospitalist --on DC pt can be discharged on lasix 40mg po bid abx improving edema Plan discussed with: Patient FAVIO OROURKE MD Feb 05, 2025 15:21
[2025-02-06 01:00] VITALS: BP 129/73; PULSE 51; RESP 19; TEMP 97.5; O2SAT 99
[2025-02-06 05:00] VITALS: BP 148/56; PULSE 51; RESP 20; TEMP 97.5; O2SAT 99
[2025-02-06 08:00] VITALS: PULSE 47; PULSE 95; RESP 15; O2SAT 98
[2025-02-06 08:54] LABS: Hematocrit 26.4 % (41.0-53.0); Hemoglobin 8.8 g/dL (13.5-17.5); Mean Corpuscular Hemoglobin 32.4 pg (28.0-32.0); Mean Corpuscular Volume 97.7 fL (80.0-100.0); Nucleated Red Blood Cells % 1.5 %
[2025-02-06 09:00] VITALS: BP 168/84; PULSE 47; RESP 20; TEMP 97.6; O2SAT 99
[2025-02-06 09:01] LABS: Anion Gap 15 (5-15); Carbon Dioxide 23 mmol/L (20-31); Chloride 104 mmol/L (98-107); Potassium 3.7 mmol/L (3.5-5.1); Sodium 142 mmol/L (136-145)
[2025-02-06 09:02] LABS: Calcium 9.0 mg/dL (8.7-10.4)
[2025-02-06 09:07] LABS: BUN/Creatinine Ratio 14.7 (10.0-20.0); Blood Urea Nitrogen 67 mg/dL (9-23); Glucose 89 mg/dL (74-106)
[2025-02-06] MEDS ORDERED: ENOXAPARIN SOD 30 MG/0.3 ML SYRINGE SC SCH (10:00)
[2025-02-06] MEDS: HEPARIN SODIUM (PORCINE) 5000 UNITS/ML 1ML VIAL SC SCH (10:00)
[2025-02-06 13:00] VITALS: BP 126/91; PULSE 46; RESP 12; TEMP 97.4; O2SAT 100
[2025-02-06] MEDS ORDERED: HYDR25TA88 PO (13:27)
[2025-02-06] MEDS ORDERED: NIFE1TAB31 PO (13:27)
[2025-02-06] MEDS ORDERED: DOXY100C79 PO (13:27)
[2025-02-06] MEDS ORDERED: FURO40TA4 PO (13:27)
--- NOTE | 2025-02-06 13:31 | DVHDS2 ---
Discharge Summary Date of Admission Feb 01, 2025 at 15:12 Date of Discharge: Feb 06, 2025 Labs/Diagnostic Data: Laboratory Results Test 02/06/25 07:56 02/04/25 08:20 02/04/25 06:18 02/03/25 09:37 White Blood Count 7.6 10^3/uL (4.4-10.8) Red Blood Count 2.70 10^6/uL (4.5-5.90) Hemoglobin 8.8 g/dL (13.5-17.5) Hematocrit 26.4 % (41.0-53.0) Mean Corpuscular Volume 97.7 fL (80.0-100.0) Mean Corpuscular Hemoglobin 32.4 pg (28.0-32.0) Mean Corpuscular Hemoglobin Concent 33.2 g/dL (32.0-36.0) Red Cell Distribution Width 16.9 % (11.8-14.3) Platelet Count 183 10^3/uL (140-450) Mean Platelet Volume 11.2 fL (6.9-10.8) Neutrophils (%) (Auto) 86.5 % (37.0-80.0) Lymphocytes (%) (Auto) 4.1 % (10.0-50.0) Monocytes (%) (Auto) 5.7 % (0.0-12.0) Eosinophils (%) (Auto) 3.2 % (0.0-7.0) Basophils (%) (Auto) 0.5 % (0.0-2.0) Neutrophils # (Auto) 6.6 10 ^3/uL (1.6-8.6) Lymphocytes # (Auto) 0.3 10 ^3/uL (0.4-5.4) Monocytes # (Auto) 0.4 10 ^3/uL (0-1.3) Eosinophils # (Auto) 0.2 10 ^3/uL (0-0.8) Basophils # (Auto) 0 10 ^3/uL (0-0.2) Nucleated Red Blood Cells 1.5 % Sodium Level 142 mmol/L (136-145) Potassium Level 3.7 mmol/L (3.5-5.1) Chloride Level 104 mmol/L (98-107) Carbon Dioxide Level 23 mmol/L (20-31) Anion Gap 15 (5-15) Blood Urea Nitrogen 67 mg/dL (9-23) Creatinine 4.56 mg/dL (0.700-1.30) Glomerular Filtration Rate Calc 12 mL/min (>90) BUN/Creatinine Ratio 14.7 (10.0-20.0) Serum Glucose 89 mg/dL (74-106) Calcium Level 9.0 mg/dL (8.7-10.4) Urine Color Yellow (Yellow) Urine Clarity Turbid (Clear) Urine pH 6.0 (5.0-9.0) Urine Specific [place] 1.012 (1.001-1.035) Urine Protein 2+ (Negative) Urine Ketones Negative (Negative) Urine Blood Trace /uL (Negative) Urine Nitrite Negative (Negative) Urine Bilirubin Negative (Negative) Urine Urobilinogen Normal mg/dL (Negative) Urine Leukocyte Esterase 1+ /uL (Negative) Urine RBC 1 /hpf (0 - 3) Urine Microscopic WBC 4 /HPF (0-3) Urine Squamous Epithelial Cells Few /hpf (<5) Urine Bacteria Few /hpf (None Seen) Urine Hyaline Casts Few /lpf (0 - 2) Urine Mucus Few (None Seen) Urine Creatinine 76.08 mg/dL (30.0-125.0) Urine Sodium 74 mmol/L (40-220) Urine Glucose Normal mg/dL (Normal) Urine Total Protein 317.6 mg/dL (1-14) Total Bilirubin 0.4 mg/dL (0.2-1.0) Aspartate Amino Transferase (AST) 44 U/L (13-40) Alanine Aminotransferase (ALT) 31 U/L (7-40) Alkaline Phosphatase 149 U/L (46-116) Total Protein 6.0 g/dL (5.7-8.2) Albumin 3.4 g/dL (3.2-4.8) Iron Level 63 ug/dL (65-175) Total Iron Binding Capacity 216 ug/dL (250-425) Percent Iron Saturation 29.2 % (20-55) Test 02/02/25 15:31 02/02/25 11:42 02/01/25 11:49 Ferritin 733.7 ng/mL (22-322) Vitamin D 25-Hydroxy 52.8 ng/mL (30.0-100) Free Thyroxine (T4) Calculated 0.98 ng/dL (0.89-1.76) Free Triiodothyronine (T3) pg/mL 2.22 pg/mL (2.3-4.2) Hemoglobin A1c 5.3 % A1C (<5.7) Phosphorus Level 3.9 mg/dL (2.4-5.1) Magnesium Level 2.5 mg/dL (1.6-2.6) C-Reactive Protein High Sensitivity 7.20 mg/dL (<1.0) Thyroid Stimulating Hormone (TSH) 6.34 uIU/mL (0.55-4.78) Parathyroid Hormone (Intact) 91.5 pg/mL (18.4-80.1) B-Type Natriuretic Peptide 2031.72 pg/mL (0-100) Other Laboratory Tests 02/06/25 07:56 Brief Hx & Hospital Course: 89-year-old male with a known history of hypertension, dyslipidemia, history of gout, chronic insomnia, history of prostate cancer status post radiation therapy presented to the hospital with a bilateral leg swelling worsening for last two weeks. Patient denies any shortness of breaths denies any fevers chills denies any cough or phlegm. Also complaining of some redness in the bilateral lower extremities. Patient was recommended to be admitted for possible acute CHF exacerbation. Patient currently denies any chest pain shortness of breaths. Patient is complaining of bilateral leg swelling as well as scrotal swelling. He is admitted and evaluated by funeral attendant. Patient has a known chronic kidney stage 4 and congestive cardiomyopathy. Patient once again educated regarding oral fluid restriction to 1200 mL per 24 hours. Advised to stay away from high salt and to keep his blood pressure under control. His blood pressure medications have been adjusted. Patient received IV diuretics and leg swelling and edema has improved however kidney function slightly worsened. Supply Chain Procurement Manager recommended to continue Lasix at home. He is lisinopril has been stopped due to worsening kidney failure. Metolazone is also discontinued. His leg swelling and erythema while in the hospital with the diuresis resolved. Therefore he is transitioned to few more days of oral antibiotic. Given he is clinically stable acute symptoms being resolved it is felt he could be safely discharged home. However he is advised to have a close follow up with the funeral attendant outpatient basis to repeat his kidney function test and further manage as deemed appropriate. I have also told him the possibility of eventual dialysis if kidney function does not stabilize or improve. Patient verbalized understanding of his hospital diagnosis, treatment he received, discharge medications, discharge instructions and agree with follow-up plan of care as outlined. Consults/Reason for consult Nephrology consultation Problem List/Assessment/Plan This is a 89-year-old male with prior medical history of hypertension, prostate cancer status post radiation therapy, insomnia, gout, hyperlipidemia and CKD 4 came to the hospital due to bilateral lower limb swelling, red rashes and hotness. TONIA on CKD 4, hemodynamic etiology Prostate cancer status post radiotherapy Dyslipidemia Hypertension Gout Cellulitis Plan/recommendation: hold metolozone lasix held by hospitalist --on DC pt can be discharged on lasix 40mg po bid abx improving edema Plan discussed with: Patient FAVIO OROURKE MD Feb 05, 2025 15:21 Operations or Procedures EXAM: Two-dimensional and M-mode echocardiogram with Doppler and color Doppler. Blood Pressure: 141/68 mmHg INDICATION congestive heart failure RISK FACTORS Height: 65, Weight: 182 DIMENSIONS LVDd 5.6 (3.8-5.7cm) LA (2D) 4.5 (1.9-4.0cm) Aortic Root 4.0 (2.0- 3.7cm) LVDs 4.7 (2.5-4.0cm) LA (MM) (1.9-4.0cm) Aortic Cusp Exc 1.7 (1.5- 2.0cm) EF (%) 30.0 (55-70%) Rt. Atrium 5.0 (1.9-4.0cm) Asc. Aorta 3.4 cm IVSd 1.0 (0.7-1.1cm) RV (D) 4.5 (1.8-2.4cm) PWd 1.0 (0.7-1.1cm) Mitral Valve Mitral Mitral Stenosis E wave 0.80m/s MV Mean GR. mmHg A wave 0.75m/s MV Peak GR. 125mmHg E/A ratio 1.1 2D MVA cm2 DECEL Time 177ms PRESS 1/2 Time ms Aortic Valve Aortic Valve Aortic Stenosis V1 0.84m/s AO Mean GR. 6mmHg V2 1.67m/s AO Peak GR. 11mmHg LVOT Diameter 2.6 (1.8-2.4cm) Doppler JUVENTINO 2.67cm2 AI P 1/2 Time 344.89ms Pulmonic Valve V2 0.76m/s Tricuspid Valve TR Velocity 2.91m/s RVSP 53mmHg Conclusion Technically good study. Atrial fibrillation. Biatrial and biventricular enlargement. Aortic root enlargement. Valves appear to be structurally normal. Left ventricular systolic performance is markedly diminished. EF is between 15- 20% with severe global hypokinesis. There was [id number] aortic insufficiency with moderate tricuspid and mitral insufficiency. Pulmonary artery hypertension noted. Moderate pulmonic insufficiency noted. No pericardial effusion masses or vegetations. 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 Pino in one week to repeat your blood test for kidney function Medications: Take Lasix as prescribed and other blood pressure medications as prescribed. Stop taking lisinopril due to kidney problems. Scheduled Amlodipine Besylate (Amlodipine Besylate), 10 MG PO DAILY, (Reported) Doxycycline (Monohydrate) (Doxycycline), 100 MG PO BID Furosemide (Furosemide), 40 MG PO DAILY Hydralazine Hcl (Hydralazine Hcl), 50 MG PO BID Lisinopril (Lisinopril), 40 MG PO DAILY, (Reported) Lovastatin (Lovastatin), 40 MG PO HS, (Reported) Multiple Vitamin (Multivitamins), 1 TAB PO DAILY, (Reported) Nifedipine (Nifedipine Er), 1 TAB PO QPM Scheduled PRN Trazodone Hcl (Trazodone Hcl), 50 MG PO for FOR INSOMNIA, (Reported) Miscellaneous Medications Misc Natural Products (Elderberry/Vitamin C/Zinc), 1 CHW PO, (Reported) [place]-3 Fatty Acids (Fish Oil), 1,200 MG PO, (Reported) Discharge Statement: "Patient was advised to return to the ER or call 911 if any headaches, dizziness, shortness of breath, chest pain, abdominal pain, bleeding, fevers, or worsening of medical condition. Patient was counseled about treatment plan, medications, possible side effects, patientverbalized understanding. All questions were answered to the best of my ability. This discharge took greater then 30 minutes in planning, reviewing documentation, counseling the patient, and discussing with other team members." ASSESSMENT ASSESSMENT Assessment Bilateral lower extremity cellulitis improved, lower extremity dependent edema due to heart failure with a diastolic dysfunction, chronic kidney disease stage 4, malignant hypertension JULIO CÉSAR PETERS MD Feb 06, 2025 13:31
--- NOTE | 2025-02-06 17:14 | DVHPN2 ---
Progress Note Date Seen: Feb 06, 2025 Has the PT tested + for MRSA If YES, has PT been informed?: No Medical Necessity Reason Pt with a Central, PICC or Fol: No Subjective Patient reports: No new complaints, Feels better Review of Systems: Deferred Objective vital signs Vital Sign Date Time Temp Pulse Resp B/P (MAP) Pulse Ox O2 Delivery O2 Flow Rate FiO2 02/06/25 13:00 97.4 46 12 126/91 (103) 100 97.4 02/06/25 08:00 Room Air* 0 21 Total Intake and Output 02/05/25 02/05/25 02/06/25 15:00 23:00 07:00 Intake Total 50 ml 520 ml 480 ml Output Total 200 ml Balance 50 ml 520 ml 280 ml medications Current Medications Medications Dose Ordered Sig/[place] Route Start Time Stop Time Status Last Admin Dose Admin Enoxaparin Sodium 40 mg DAILY SC 02/02/25 10:00 UNV Examination: GENERAL:Normal, HEENT:Normal, NECK:Normal, LUNGS:Normal, CVS:Normal, ABDOMEN:Normal, MSK:Abnormal, SKIN:Normal, NEURO:Normal, :Normal laboratory and microbiology Laboratory Tests 02/06/25 07:56 Test 02/06/25 07:56 Range/Units Serum Glucose 89 74-106 mg/dL Problem List/Assessment/Plan Problem List/Assessment/Plan This is a 89-year-old male with prior medical history of hypertension, prostate cancer status post radiation therapy, insomnia, gout, hyperlipidemia and CKD 4 came to the hospital due to bilateral lower limb swelling, red rashes and hotness. TONIA on CKD 4, hemodynamic etiology Prostate cancer status post radiotherapy Dyslipidemia Hypertension Gout Cellulitis Plan/recommendation: hold metolozone lasix held by hospitalist --on DC pt can be discharged on lasix 40mg po bid abx improving edema Plan discussed with: Patient FAVIO OROURKE MD Feb 06, 2025 17:14
== END 2025-02-06 16:30 | disposition home health service (06) | DRG 291 ==
LOC: ER 10:30 → OVERFLOW 15:12 → TELE-WESTW 23:07
PROVIDERS: ADMIT Internal Medicine; ATTEND Internal Medicine
DX: I13.0 Hypertensive heart and chronic kidney disease with heart failure and stage 1 through stage 4 chronic kidney disease, or unspecified chronic kidney disease (principal); I50.43 Acute on chronic combined systolic (congestive) and diastolic (congestive) heart failure; L03.115 Cellulitis of right lower limb; I27.21 Secondary pulmonary arterial hypertension; N18.4 Chronic kidney disease, stage 4 (severe); N17.9 Acute kidney failure, unspecified; L03.116 Cellulitis of left lower limb; I35.0 Nonrheumatic aortic (valve) stenosis; E78.5 Hyperlipidemia, unspecified; N50.89 Other specified disorders of the male genital organs; M10.9 Gout, unspecified; F51.04 Psychophysiologic insomnia; I48.91 Unspecified atrial fibrillation; I42.0 Dilated cardiomyopathy; I08.3 Combined rheumatic disorders of mitral, aortic and tricuspid valves; Z92.3 Personal history of irradiation; Z85.46 Personal history of malignant neoplasm of prostate; Z82.49 Family history of ischemic heart disease and other diseases of the circulatory system; Z79.899 Other long term (current) drug therapy; Z80.8 Family history of malignant neoplasm of other organs or systems
CPT/HCPCS: 36415; 71045; 76775; 80048; 80053; 81001; 82306; 82570; 82728; 83036; 83540; 83550; 83735; 83880; 83970; 84100; 84156; 84300; 84439; 84443; 84481; 85025; 86141; 93306; 93970; 96374; 97162; G0378